=== PATIENT | male | born 1980 | race Caucasian/White ===

== ENCOUNTER 2017-09-28 10:23 | Emergency (ER) | payer OTHER ==
[~2017-09-28] VITALS: Ht 172.7 cm; Wt 112.2 kg
[~2017-09-28 10:23] MED LIST: ACET325T9 PO
[2017-09-28 10:25] VITALS: Ht 172.7 cm; Wt 112.2 kg
[2017-09-28] MEDS ORDERED: KETOROLAC TROMETHAMINE 30 MG/ML VIAL IV STA (10:51)
--- NOTE | 2017-09-28 11:08 | DIAGNOSTIC IMAGING REPORT ---
R ANKLE MIN 3 VIEWS ROUTINE HISTORY: 37 years-old Male R ankle pain acute right ankle pain COMPARISON: None available TECHNIQUE: 3 views of the right ankle FINDINGS: No acute fracture or subluxation. No osteochondral defect. Mild dorsal spurring of the navicular. Pes planus deformity with moderate sized plantar enthesophyte. Dystrophic appearing ossification measuring 4 mm is noted within the distribution of the plantar fascia. IMPRESSION: 1. No acute fracture or dislocation. 2. Pes planus deformity. 3. Moderate sized plantar enthesophyte with small dystrophic ossification within the region of the plantar fascia suggesting sequela of chronic plantar fasciitis. The above report was generated using voice recognition software. It may contain grammatical, syntax or spelling errors. Electronically signed by: Suleiman Dickens M.D. 09/28/2017 11:06 AM Dictated Date/Time: 09/28/2017 11:04 AM
[2017-09-28 11:25] LABS: BASO % 0.5 %; BASO ABS # 0.03 K/uL (0-0.2); EOS % 3.3 %; EOS ABS # 0.19 K/uL (0-0.5); HEMATOCRIT 47.1 % (42-52); HEMOGLOBIN 16.3 g/dL (14.0-18.0); IG# 0.01 K/uL (0.00-0.02); LYMPH % 30.4 %; LYMPH ABS # 1.74 K/uL (1.2-3.4); MEAN CELL VOLUME 92.2 fL (80-100); MEAN CORPUSCULAR HEMOGLOBIN 31.9 pg (25-34); MEAN CORPUSCULAR HGB CONC 34.6 g/dl (32-36); MEAN PLATELET VOLUME 9.9 fL (7.4-10.4); MONO % 6.3 %; MONO ABS # 0.36 K/uL (0.11-0.59); NEUT % 59.3 %; NEUT ABS # 3.39 K/uL (1.4-6.5); PLATELET COUNT 205 K/uL (130-400); RED CELL DISTRIBUTION WIDTH CV 12.4 % (11.5-14.5); RED CELL DISTRIBUTION WIDTH SD 41.7 fL (36.4-46.3); WHITE BLOOD COUNT 5.72 K/uL (4.8-10.8)
[2017-09-28 11:44] LABS: CALCIUM 8.8 mg/dl (8.5-10.1); CREATININE 1.01 mg/dl (0.60-1.40)
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
--- NOTE | 2017-09-28 14:28 | DIAGNOSTIC IMAGING REPORT ---
R VENOUS DOPP LOWER EXT UNILAT HISTORY: 37 years-old Male lower leg pain and swelling acute right lower extremity pain and swelling COMPARISON: Right ankle radiographs of same day TECHNIQUE: Multiple real-time sonographic images of the right lower extremity deep venous structures were obtained assessing grayscale appearance, color and spectral flow. FINDINGS: There is normal compressibility, flow, phasicity and augmentation within the right lower extremity deep venous structures. IMPRESSION: No sonographic evidence of deep venous thrombosis. The above report was generated using voice recognition software. It may contain grammatical, syntax or spelling errors. Electronically signed by: Suleiman Dickens M.D. 09/28/2017 2:27 PM Dictated Date/Time: 09/28/2017 2:26 PM
[2017-09-28 15:16] VITALS: BP 148/87; PULSE 85; TEMP 36.9; O2SAT 97
[2017-09-28] MEDS ORDERED: KETO10TA PO (15:26)
== END 2017-09-28 15:17 | disposition home or self-care (01) ==
LOC: C.EDB 10:24
DX: M25.571 Pain in right ankle and joints of right foot (principal); M79.662 Pain in left lower leg; G80.9 Cerebral palsy, unspecified; B02.9 Zoster without complications; M72.2 Plantar fascial fibromatosis; F17.200 Nicotine dependence, unspecified, uncomplicated

== ENCOUNTER 2019-07-23 18:39 | Inpatient (IN) ==
[2019-07-23] MEDS ORDERED: SODIUM CHLORIDE 0.9% 1000ML 1,000 ML IV ONE ×2 (19:05→21:11)
[2019-07-23 20:03] LABS: Basophils # (auto) 0.02 K/uL (0-0.2); Basophils % (auto) 0.2 %; Eosinophils # (auto) 0.16 K/uL (0-0.5); Eosinophils % (auto) 1.5 %; Hematocrit (blood only) 47.9 % (42-52); Hemoglobin 16.7 g/dL (14.0-18.0); Immature Granulocytes # (auto) 0.03 K/uL (0.00-0.02); Immature Granulocytes % (auto) 0.3 %; Lymphocytes # (auto) 2.16 K/uL (1.2-3.4); Lymphocytes % (auto) 19.6 %; Mean Corpuscular Hemoglobin 32.9 pg (25-34); Mean Corpuscular Hgb Conc 34.9 g/dL (32-36); Mean Corpuscular Volume 94.5 fL (80-100); Mean Platelet Volume 10.7 fL (7.4-10.4); Monocytes # (auto) 0.88 K/uL (0.11-0.59); Neutrophils # (auto) 7.76 K/uL (1.4-6.5); Neutrophils % (auto) 70.4 %; Platelet Count 200 K/uL (130-400); RDW Coefficient of Variation 12.2 % (11.5-14.5); RDW Standard Deviation 41.9 fL (36.4-46.3); Red Blood Count 5.07 M/uL (4.7-6.1); White Blood Count 11.01 K/uL (4.8-10.8)
[2019-07-23 20:12] LABS: iSTAT Creatinine 0.8 mg/dl (0.6-1.3); iSTAT Ionized Calcium 1.11 mmol/l (1.12-1.32); iSTAT Potassium 4.2 mEq/L (3.3-5.0)
[2019-07-23 20:24] LABS: Albumin Level 3.2 gm/dl (3.4-5.0); BUN Creatinine Ratio 15.3 (10-20); Calcium 9.2 mg/dl (8.5-10.1); Creatinine Clr Calc Pharmacy 130.8 ml/min; Est GFR (Non-African American) 104.4; Potassium 4.1 mmol/L (3.5-5.1)
[2019-07-23 20:26] LABS: Albumin Globulin Ratio 0.7 (0.9-2); Bilirubin,Total 0.6 mg/dl (0.2-1); Globulin 4.6 gm/dl (2.5-4.0); Total Protein 7.8 gm/dl (6.4-8.2)
[2019-07-23] MEDS ORDERED: IOVERSOL 100ml IV PRN (20:49)
--- NOTE | 2019-07-23 21:00 | CT Scan Report ---
ABDOMEN AND PELVIS CT WITH IV CONTRAST CT DOSE: 1164.15 mGy.cm HISTORY: Left lower quadrant abdominal pain. TECHNIQUE: Multiaxial CT images of the abdomen and pelvis were performed following the use of intrave nous contrast. A dose lowering technique was utilized adhering to the principles of ALARA. COMPARISON STUDY: None. FINDINGS: The lung bases are clear. No fractures within the visualized osseous structures. Mild hepat ic steatosis. The liver, adrenal glands, pancreas, gallbladder, left kidney are unremarkable. There i s a 4 mm stone within the upper pole the right kidney. No ureteral stones. No hydronephrosis. No retr operitoneal lymphadenopathy. Normal caliber abdominal aorta. No evidence for bowel obstruction. Dorothy l appendix. The bladder is unremarkable. A few scattered colonic diverticula. There is focal thickeni ng within the mid sigmoid colon with adjacent pericolonic fat stranding consistent with an acute dive rticulitis. There are small foci of extraluminal gas adjacent to the mid sigmoid colon consistent wit h microperforation. There is a small adjacent extraluminal air-fluid level measuring 2.1 cm likely re presenting a developing abscess. IMPRESSION: 1. Above findings consistent with acute sigmoid diverticulitis. There is associated microperforation and a small developing pericolonic abscess measuring 2 cm. Recommend follow-up to resolution and to e xclude the less likely possibility of underlying colonic lesion. 2. Right-sided nephrolithiasis. No hydronephrosis. 3. Hepatic steatosis. Electronically signed by: Aristeo Corbin M.D. 07/23/2019 8:59 PM
[2019-07-23] MEDS ORDERED: PIPERACILL/TAZOBAC CONSULT ACTIVE PRN ×2 (21:11→23:32)
[2019-07-23] MEDS ORDERED: PIPERACILLIN/TAZOBACTAM 4.5 GM/120 ML BAG IV ONE (21:11)
[2019-07-23 21:14] LABS: Appearance Urine Clear (Clear); Bacteria Urine Automated Negative (Negative); Bilirubin Urine Negative (Negative); Blood Urine Trace (Negative); Color Urine Yellow; Epithelial Cell Urine Auto 0-5 /lpf (0-5); Glucose Urine UA Negative (Negative); Ketones Urine Negative (Negative); Leukocyte Esterase Urine Negative (Negative); Nitrite Urine Negative (Negative); Protein Urine Negative (Negative); RBC Urine Automated 0-4 /hpf (0-4); Specific Gravity Urine 1.042 (1.000-1.030); Urobilinogen Urine Negative (Negative); WBC Urine Automated 0 /hpf (0-5)
[2019-07-23] MEDS ORDERED: MoRPHine SULFATE 4 MG/ML 1 ML CARP\\VIAL IV STA (21:53)
[2019-07-23] MEDS ORDERED: ONDANSETRON INJ 2 MG/ML 2 ML VIAL IV STA (21:53)
[2019-07-23] MEDS ORDERED: ONDANSETRON INJ 2 MG/ML 2 ML VIAL IV PRN (23:32)
[2019-07-24] MEDS: FAMOTIDINE 20 MG in SYRINGE 3 ML IV SCH ×3 (00:51→20:00)
[2019-07-24] MEDS: NSS + 20MEQ KCL 20 MEQ/1,000 ML BAG IV SCH ×3 (00:51→19:59)
--- NOTE | 2019-07-24 00:59 | Emergency Department Note ---
Entered by Hannah Childs acting as a scribe for Vick Nieto MD History of Present Illness General Chief complaint: Abdominal Pain Stated complaint: ABDOMINAL PAIN Time Seen by Provider: 07/23/19 18:57 Source: patient Mode of arrival: ambulatory Limitations: no limitations History of Present Illness Onset (ago): day(s) 3 Location: abdomen Radiation: non-radiation Pain Consistency: + constant Maximum Pain Intensity: 7 Current Pain Intensity: 7 Relieved By: + none Exacerbated By: + movement Associated symptoms: + fever/chills and + other (-diarrhea, +hematochezia, - hematuria, -dysuria); no chest pain, no nausea/vomiting and no shortness of breath Treatments prior to arrival: none The patient is a 39 year old male who presents to the ED with complaints of abdominal pain that started 3 days OIL [employer]AG [employer]. He rates his discomfort as a 7/10 in severity and states the pain is located "all over" but is worse on the left. Movement worsens his discomfort. He denies any recent trauma or injury. He thinks his highest temperature has been 100.2. He denies any recent nausea, vomiting or diarrhea. He states there was blood in his stool last night and this morning. He denies any history of diverticulitis or colitis. He denies any recent chest pain or shortness of breath. He denies any hematuria or dysuria. He has not eaten since approximately 1200 today. Home Medications Home Medications Medication Instructions Recorded Confirmed Type [id number] 2 ea PO UD PRN 07/23/19 07/23/19 History [[place] Plus Cold (PE)] Allergies Allergy/AdvReac Type Severity Reaction Status Date / Time No Known Drug Allergies Allergy Unknown NONE Verified 09/28/17 10:52 Past Med/Surg History Medical History Cerebral palsy Social History Preferred Language: Swedish Communication Ability: Effective Fuel Quality Tech Required: No Beliefs That Will Affect Care: None Current Living Situation: Parent Current Living Situation Comment: with dad Other Information That Helps Us Care for You: No Feels Safe at Home: Yes Safety Concerns: Feels Safe At This Time Smoking Status: Current every day smoker Tobacco Type: e-cigarettes ; Do You Dip or Chew Tobacco: Yes (at work) ; Second Hand Exposure: Yes ; Tobacco Cessation Education Requested by Patient: No Hx Alcohol Use: Yes Alcohol type: beer Hx Substance Use: No Review of Systems See HPI for pertinent positives & negatives. Physical Exam Vital Signs Vital Signs - 24 hr 07/23/19 18:41 07/23/19 20:00 07/23/19 21:00 Temperature 37.4 C Temperature Source Oral Sepsis Recent Fever Within 48 Hours No Sepsis New/Unexplained Change in Mental Status No Sepsis Action Taken by Nursing No Action Required Pulse Rate 103 H 86 Pulse Rate [Right Finger] 85 Pulse Rate from SpO2 Sensor 86 Pulse Rhythm Regular Pulse Rhythm [Right Finger] Regular Pulse Strength Normal Pulse Strength [Right Finger] Normal Respiratory Rate 20 22 Respiratory Effort / Characteristics Non-Labored Spontaneous Non-Labored Respiratory Depth Normal Normal Respiratory Pattern Regular Regular Blood Pressure 159/100 H 142/90 H Blood Pressure [Right Arm] 142/90 H Blood Pressure Mean 119 107 Blood Pressure Mean [Right Arm] 107 Blood Pressure Position Sitting Blood Pressure Position [Right Arm] Lying Pulse Oximetry 98 96 98 Oxygen Delivery Method Room Air Room Air 07/23/19 21:11 07/23/19 22:31 Temperature Temperature Source Sepsis Recent Fever Within 48 Hours Sepsis New/Unexplained Change in Mental Status Sepsis Action Taken by Nursing Pulse Rate 91 H Pulse Rate [Right Finger] 89 Pulse Rate from SpO2 Sensor 91 H Pulse Rhythm Pulse Rhythm [Right Finger] Pulse Strength Pulse Strength [Right Finger] Respiratory Rate 26 H 18 Respiratory Effort / Characteristics Respiratory Depth Respiratory Pattern Blood Pressure Blood Pressure [Right Arm] 139/93 Blood Pressure Mean Blood Pressure Mean [Right Arm] 108 Blood Pressure Position Blood Pressure Position [Right Arm] Pulse Oximetry 98 100 Oxygen Delivery Method Room Air General: Non-ill appearing middle aged male, in no acute distress. HEENT: Normal cephalic atraumatic. Pupils are equal round and reactive to light. Extraocular movements are intact. Oropharynx is pink with moist mucous membranes. No swelling of the mouth lips or tongue. Neck: Supple with a midline trachea. No meningeal signs or stiffness, no JVD or bruits. No Stridor. Chest: Clear to auscultation bilaterally. No wheezes or rhonchi. No increased work of breathing. Heart: regular rate and rhythm. Abdomen: Soft, moderately tender in LLQ, nondistended without rebound guarding or rigidity. Extremities: No cyanosis clubbing or edema. No calf tenderness or asymmetry Spine/Back. Non tender to palpation. No CVA tenderness Skin: Good turgor without rashes. Neurologic exam: Cranial nerves two through 12 are intact. Motor and sensation are intact and symmetrical throughout. Course 1858: The patient was evaluated in room A9 and a complete history and physical were performed. 2154: Discussed the patient's case with Dr. Levy, [facility] Hospitalist. The patient will be evaluated for further management. Administered Medications Famotidine 20 mg/ Syringe 5 mls @ 2.5 mls/min IV Q12 BREEZY Stop: 08/22/19 23:31 Last Admin: 07/24/19 00:51 Dose: 2.5 mls/min Documented by: [id number] Potassium Chloride/Sodium Chloride (Normal Saline W/20 Meq Kcl) 20 meq in 1,000 mls @ 100 mls/hr IV .Q10H BREEZY Stop: 08/22/19 23:31 Last Admin: 07/24/19 00:51 Dose: 100 mls/hr Documented by: [id number] Ioversol (Optiray 320 100ml) 90 ml IV ONCE PRN PRN Reason: Interaction Checking Stop: 07/27/19 20:48 Last Admin: 07/23/19 20:49 Dose: 90 ml Documented by: [id number] Discontinued Medications Sodium Chloride (Nss 1000ml) 1,000 mls @ 999 mls/hr IV .Q1H1M ONE Stop: 07/23/19 20:05 Last Infusion: 07/23/19 21:26 Dose: 0 mls/hr Documented by: [id number] Admin: 07/23/19 19:45 Dose: 999 mls/hr Documented by: [id number] Piperacillin Sod/Tazobactam Sod (Zosyn) 4.5 gm in 120 mls @ 240 mls/hr IV NOW ONE Stop: 07/23/19 21:40 Last Infusion: 07/23/19 22:34 Dose: 0 mls/hr Documented by: [id number] Admin: 07/23/19 21:50 Dose: 200 mls/hr Documented by: [id number] Sodium Chloride (Nss 1000ml) 1,000 mls @ 999 mls/hr IV .Q1H1M ONE Stop: 07/23/19 22:11 Last Infusion: 07/23/19 22:53 Dose: 0 mls/hr Documented by: [id number] Admin: 07/23/19 21:49 Dose: 999 mls/hr Documented by: [id number] Morphine Sulfate (Morphine Sulfate) 4 mg IV NOW STA Stop: 07/23/19 21:54 Last Admin: 07/23/19 22:32 Dose: 4 mg Documented by: [id number] Ondansetron HCl (Zofran) 4 mg IV NOW STA Stop: 07/23/19 21:54 Last Admin: 07/23/19 22:32 Dose: 4 mg Documented by: [id number] Medical Decision Making Differential Diagnosis Differential diagnoses considered include diverticulitis, colitis, abscess, kidney stone, UTI, electrolyte or metabolic abnormality. Medical Records Attestation: I reviewed the patient's medical records. Home Medications Current Medication List: was personally reviewed by me Laboratory Data Attestation: I reviewed the patient's lab results. Result diagrams: 07/23/19 19:49 07/23/19 19:49 Lab Results 07/23/19 07/23/19 07/23/19 Range/Units 19:49 19:49 19:56 WBC 11.01 H (4.8-10.8) K/uL RBC 5.07 (4.7-6.1) M/uL Hgb 16.7 (14.0-18.0) g/dL POC Hgb 17.0 (14.0-18.0) g/dl Hct 47.9 (42-52) % POC Hct 50 (42-52) % MCV 94.5 (80-100) fL MCH 32.9 (25-34) pg MCHC 34.9 (32-36) g/dL RDW Std Deviation 41.9 (36.4-46.3) fL RDW Coeff of Nancy 12.2 (11.5-14.5) % Plt Count 200 (130-400) K/uL MPV 10.7 H (7.4-10.4) fL Immature Gran % (Auto) 0.3 % Neut % (Auto) 70.4 % Lymph % (Auto) 19.6 % [place] % (Auto) 8.0 % Eos % (Auto) 1.5 % Baso % (Auto) 0.2 % Immature Gran # (Auto) 0.03 H (0.00-0.02) K/uL Neut # (Auto) 7.76 H (1.4-6.5) K/uL Lymph # (Auto) 2.16 (1.2-3.4) K/uL [place] # (Auto) 0.88 H (0.11-0.59) K/uL Eos # (Auto) 0.16 (0-0.5) K/uL Baso # (Auto) 0.02 (0-0.2) K/uL POC Sodium 137 (135-144) mEq/L Sodium 136 (136-145) mmol/L POC Potassium 4.2 (3.3-5.0) mEq/L Potassium 4.1 (3.5-5.1) mmol/L POC Chloride 102 (101-112) mEq/L Chloride 104 (98-107) mmol/L Carbon Dioxide 27 (21-32) mmol/L POC Total CO2 26 (24-31) mEq/l Anion Gap 6.0 (3-11) POC Anion Gap 15.0 L (16-25) mmol/L POC BUN 14 (7-18) mg/dl BUN 14 (7-18) mg/dl Creatinine 0.92 (0.6-1.4) mg/dl POC Creatinine 0.8 (0.6-1.3) mg/dl Est Cr Clr Drug Dosing 130.8 ml/min Est GFR ( Amer) 121.0 Est GFR (Non-Af Amer) 104.4 BUN/Creatinine Ratio 15.3 (10-20) Glucose 104 H (70-99) mg/dl POC Glucose (other) 104 H (70-99) mg/dl Calcium 9.2 (8.5-10.1) mg/dl POC Ioniz Calcium Burt 1.11 L (1.12-1.32) mmol/l Total Bilirubin 0.6 (0.2-1) mg/dl AST 17 (15-37) U/L ALT 34 (12-78) U/L Alkaline Phosphatase 106 (45-117) U/L Total Protein 7.8 (6.4-8.2) gm/dl Albumin 3.2 L (3.4-5.0) gm/dl Globulin 4.6 H (2.5-4.0) gm/dl Albumin/Globulin Ratio 0.7 L (0.9-2) Lipase 100 (73-393) U/L Urine Color Urine Appearance (Clear) Urine pH (4.5-7.5) Ur Specific [place] (1.000-1.030) Urine Protein (Negative) Urine Glucose (UA) (Negative) Urine Ketones (Negative) Urine Blood (Negative) Urine Nitrite (Negative) Urine Bilirubin (Negative) Urine Urobilinogen (Negative) Ur Leukocyte Esterase (Negative) Urine WBC (Auto) (0-5) /hpf Urine RBC (Auto) (0-4) /hpf U Hyaline Cast (Auto) (0-5) /lpf U Epithel Cells (Auto) (0-5) /lpf Urine Bacteria (Auto) (Negative) 07/23/19 Range/Units 21:02 WBC (4.8-10.8) K/uL RBC (4.7-6.1) M/uL Hgb (14.0-18.0) g/dL POC Hgb (14.0-18.0) g/dl Hct (42-52) % POC Hct (42-52) % MCV (80-100) fL MCH (25-34) pg MCHC (32-36) g/dL RDW Std Deviation (36.4-46.3) fL RDW Coeff of Nancy (11.5-14.5) % Plt Count (130-400) K/uL MPV (7.4-10.4) fL Immature Gran % (Auto) % Neut % (Auto) % Lymph % (Auto) % [place] % (Auto) % Eos % (Auto) % Baso % (Auto) % Immature Gran # (Auto) (0.00-0.02) K/uL Neut # (Auto) (1.4-6.5) K/uL Lymph # (Auto) (1.2-3.4) K/uL [place] # (Auto) (0.11-0.59) K/uL Eos # (Auto) (0-0.5) K/uL Baso # (Auto) (0-0.2) K/uL POC Sodium (135-144) mEq/L Sodium (136-145) mmol/L POC Potassium (3.3-5.0) mEq/L Potassium (3.5-5.1) mmol/L POC Chloride (101-112) mEq/L Chloride (98-107) mmol/L Carbon Dioxide (21-32) mmol/L POC Total CO2 (24-31) mEq/l Anion Gap (3-11) POC Anion Gap (16-25) mmol/L POC BUN (7-18) mg/dl BUN (7-18) mg/dl Creatinine (0.6-1.4) mg/dl POC Creatinine (0.6-1.3) mg/dl Est Cr Clr Drug Dosing ml/min Est GFR ( Amer) Est GFR (Non-Af Amer) BUN/Creatinine Ratio (10-20) Glucose (70-99) mg/dl POC Glucose (other) (70-99) mg/dl Calcium (8.5-10.1) mg/dl POC Ioniz Calcium Burt (1.12-1.32) mmol/l Total Bilirubin (0.2-1) mg/dl AST (15-37) U/L ALT (12-78) U/L Alkaline Phosphatase (45-117) U/L Total Protein (6.4-8.2) gm/dl Albumin (3.4-5.0) gm/dl Globulin (2.5-4.0) gm/dl Albumin/Globulin Ratio (0.9-2) Lipase (73-393) U/L Urine Color Yellow Urine Appearance Clear (Clear) Urine pH 6.0 (4.5-7.5) Ur Specific [place] 1.042 H (1.000-1.030) Urine Protein Negative (Negative) Urine Glucose (UA) Negative (Negative) Urine Ketones Negative (Negative) Urine Blood Trace H (Negative) Urine Nitrite Negative (Negative) Urine Bilirubin Negative (Negative) Urine Urobilinogen Negative (Negative) Ur Leukocyte Esterase Negative (Negative) Urine WBC (Auto) 0 (0-5) /hpf Urine RBC (Auto) 0-4 (0-4) /hpf U Hyaline Cast (Auto) 1-5 (0-5) /lpf U Epithel Cells (Auto) 0-5 (0-5) /lpf Urine Bacteria (Auto) Negative (Negative) Imaging Data Radiologist's Impression: Radiology results as stated below per my review and the radiologist's interpretation: ABDOMEN AND PELVIS CT WITH IV CONTRAST CT DOSE: 1164.15 mGy.cm HISTORY: Left lower quadrant abdominal pain. TECHNIQUE: Multiaxial CT images of the abdomen and pelvis were performed following the use of intravenous contrast. A dose lowering technique was utilized adhering to the principles of ALARA. COMPARISON STUDY: None. FINDINGS: The lung bases are clear. No fractures within the visualized osseous structures. Mild hepatic steatosis. The liver, adrenal glands, pancreas, gallbladder, left kidney are unremarkable. There is a 4 mm stone within the upper pole the right kidney. No ureteral stones. No hydronephrosis. No retroperitoneal lymphadenopathy. Normal caliber abdominal aorta. No evidence for bowel obstruction. Normal appendix. The bladder is unremarkable. A few scattered colonic diverticula. There is focal thickening within the mid sigmoid colon with adjacent pericolonic fat stranding consistent with an acute diverticulitis. There are small foci of extraluminal gas adjacent to the mid sigmoid colon consistent with microperforation. There is a small adjacent extraluminal air- fluid level measuring 2.1 cm likely representing a developing abscess. IMPRESSION: 1. Above findings consistent with acute sigmoid diverticulitis. There is associated microperforation and a small developing pericolonic abscess measuring 2 cm. Recommend follow-up to resolution and to exclude the less likely possibility of underlying colonic lesion. 2. Right-sided nephrolithiasis. No hydronephrosis. 3. Hepatic steatosis. Electronically signed by: Aristeo Corbin M.D. 07/23/2019 8:59 PM Blood Pressure Blood Pressure Findings: Elevated blood pressure Blood Pressure Disposition: further management by hospitalist HARRY Guerra This patient comes in as described above. he has left lower quadrant abdominal pain going on for several days. he was sent over from the urgent care center. He is moderately tender left side of the abdomen. No fever or chills. IV access established blood work was obtained. he does have an elevated white count. A CAT scan does confirm acute diverticulitis. There may be microperforations and a small 2 cm abscess. He was given IV Zosyn. He was also given IV hydration with IV fluid boluses here he was given morphine 4 mg and Zofran 4 mg for pain and nausea management. I do think he needs to be admitted for IV antibiotics given the concern for perforation and abscess. I did consult Dr. Mckenna to see him in the ER for these measures. Impression & Plan Diverticulitis, Diverticular disease of intestine with perforation and abscess, LLQ abdominal pain, Cerebral palsy Discharge Plan Visit Data *Final* Discharge Date/Time: 07/23/19 23:15 Chief Complaint: Abdominal Pain Stated Complaint: ABDOMINAL PAIN ED Provider: Vick Nieto Discharge Problem: Diverticulitis, Diverticular disease of intestine with perforation and abscess, LLQ abdominal pain, Cerebral palsy Patient Disposition: Admitted As Inpatient Discharge Instructions Interventions: ED Discharge Assessment Last Done: 07/23/19 23:15 The scribe's documentation has been prepared under my direction and personally reviewed by me in its entirety. I confirm that the note above accurately reflects all work, treatment, procedures, and medical decision making performed by me.
[2019-07-24] MEDS: PIPERACILLIN/TAZOBACTAM 4.5 GM in DEXTROSE 5% 100 ML IV SCH ×3 (02:06→18:24)
[2019-07-24] MEDS: ACETAMINOPHEN 1,000 MG/100 ML VIAL IV PRN ×2 (05:15→12:36)
--- NOTE | 2019-07-24 05:27 | History & Physical Report ---
Date of Service July 24, 2019 The patient was seen and examined on 07/23/2019 Assessment & Plan (1) Diverticular disease of intestine with perforation and abscess: NPO Admit to medical surgical floor. Zosyn 4.5 g IV every 8 hours. Zofran 4 mg IV every 6 hours PRN. Famotidine 20 mg IV every 12 hours. Acetaminophen 1000 mg IV every 8 hours PRN mild pain or temperature. NSS + KCl 20 mEq at 100 mils per hour. Can be seen by gastroenterology, and/or general surgery as hospitalization prog resses. Present on Admission?: Yes (2) Cerebral palsy: Noted. No acute issues at this time. Present on Admission?: Yes History of Present Illness Chief Complaint: The patient presents to the emergency department with complaint of abdominal pain that began 4 days ago, that did briefly improve yesterday, and then worsened again today. Primary Care Provider: NO PCP The patient is a 39-year-old male who presents to the emergency department with symptoms as noted above. Work-up in the emergency department included included a CT scan of the abdomen and pelvis which showed findings consistent with acute sigmoid diverticulitis, an associated microperforation, and a small developing pericolonic abscess measuring 2 cm. Recommendation to follow-up to resolution and to exclude the less likely possibility of an underlying colonic lesion. The patient will be admitted to hospital for further evaluation and treatment. 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 Beliefs That Will Affect Care: None Current Living Situation: Parent Current Living Situation Comment: with dad Other Information That Helps Us Care for You: No Feels Safe at Home: Yes Safety Concerns: Feels Safe At This Time Smoking Status: Current every day smoker Tobacco Type: e-cigarettes ; Do You Dip or Chew Tobacco: Yes (at work) ; Second Hand Exposure: Yes ; Tobacco Cessation Education Requested by Patient: No Hx Alcohol Use: Yes Alcohol type: beer Hx Substance Use: No Review of Systems Review of Systems: The patient denies chest pain, palpitations, shortness of breath, dyspnea on exertion, cough, lower extremity swelling, sore throat, fevers, chills, sweats, nausea, vomiting, blood in urine or stool, dysuria, urinary frequency or urgency, lightheadedness, dizziness, headache, memory loss, loss of consciousness, rash, abnormal bruising, imbalance, focal or generalized weakness, numbness or tingling in arms or legs, generalized arthralgias or myalgias, back or neck pain, or night sweats. The review of systems is otherwise negative other than for that already noted above, and at least 10 systems have been reviewed. Physical Exam Physical Exam: The patient is awake, alert and oriented 3, well developed and well nourished, normocephalic and atraumatic, lying in bed and in no acute distress. HEENT--PERRL, EOMI, mucous membranes and oropharynx dry. Neck--No JVD. No bruits. Thyroid normal, trachea midline, no adenopathy. Heart--normal S1 and S2. No murmurs, rubs or gallops. Lungs--clear bilaterally, no respiratory distress, no accessory muscle use. Abdomen--normal bowel sounds and soft. Tender left lower quadrant. Nondistended. Extremities--no cyanosis or clubbing. No edema. Dermatologic--normal skin turgor, normal color, no abnormal lymph nodes, no rash. Neurologic--cranial nerves II through XII grossly intact. Rheumatologic--normal range of motion. Psychiatric--normal affect. Results & Data Vital Signs (Past 12 Hours) Vital Signs Temp Pulse Pulse Resp BP BP Pulse Ox 07/23/19 23:35 98.2 F 84 18 132/85 96 07/23/19 22:31 89 18 139/93 100 07/23/19 21:11 91 H 26 H 98 07/23/19 21:00 86 85 22 142/90 H 142/90 H 98 07/23/19 20:00 96 07/23/19 18:41 99.3 F 103 H 20 159/100 H 98 Laboratory Results Laboratory Results WBC 11.01 K/uL (4.8-10.8) H 07/23/19 19:49 RBC 5.07 M/uL (4.7-6.1) 07/23/19 19:49 Hgb 16.7 g/dL (14.0-18.0) 07/23/19 19:49 POC Hgb 17.0 g/dl (14.0-18.0) 07/23/19 19:56 Hct 47.9 % (42-52) 07/23/19 19:49 POC Hct 50 % (42-52) 07/23/19 19:56 MCV 94.5 fL (80-100) 07/23/19 19:49 MCH 32.9 pg (25-34) 07/23/19 19:49 MCHC 34.9 g/dL (32-36) 07/23/19 19:49 RDW Std Deviation 41.9 fL (36.4-46.3) 07/23/19 19:49 RDW Coeff of Nancy 12.2 % (11.5-14.5) 07/23/19 19:49 Plt Count 200 K/uL (130-400) 07/23/19 19:49 MPV 10.7 fL (7.4-10.4) H 07/23/19 19:49 Immature Gran % (Auto) 0.3 % 07/23/19 19:49 Neut % (Auto) 70.4 % 07/23/19 19:49 Lymph % (Auto) 19.6 % 07/23/19 19:49 Baker % (Auto) 8.0 % 07/23/19 19:49 Eos % (Auto) 1.5 % 07/23/19 19:49 Baso % (Auto) 0.2 % 07/23/19 19:49 Immature Gran # (Auto) 0.03 K/uL (0.00-0.02) H 07/23/19 19:49 Neut # (Auto) 7.76 K/uL (1.4-6.5) H 07/23/19 19:49 Lymph # (Auto) 2.16 K/uL (1.2-3.4) 07/23/19 19:49 Baker # (Auto) 0.88 K/uL (0.11-0.59) H 07/23/19 19:49 Eos # (Auto) 0.16 K/uL (0-0.5) 07/23/19 19:49 Baso # (Auto) 0.02 K/uL (0-0.2) 07/23/19 19:49 POC Sodium 137 mEq/L (135-144) 07/23/19 19:56 Sodium 136 mmol/L (136-145) 07/23/19 19:49 POC Potassium 4.2 mEq/L (3.3-5.0) 07/23/19 19:56 Potassium 4.1 mmol/L (3.5-5.1) 07/23/19 19:49 POC Chloride 102 mEq/L (101-112) 07/23/19 19:56 Chloride 104 mmol/L (98-107) 07/23/19 19:49 Carbon Dioxide 27 mmol/L (21-32) 07/23/19 19:49 POC Total CO2 26 mEq/l (24-31) 07/23/19 19:56 Anion Gap 6.0 (3-11) 07/23/19 19:49 POC Anion Gap 15.0 mmol/L (16-25) L 07/23/19 19:56 POC BUN 14 mg/dl (7-18) 07/23/19 19:56 BUN 14 mg/dl (7-18) 07/23/19 19:49 Creatinine 0.92 mg/dl (0.6-1.4) 07/23/19 19:49 POC Creatinine 0.8 mg/dl (0.6-1.3) 07/23/19 19:56 Est Cr Clr Drug Dosing 130.8 ml/min 07/23/19 19:49 Est GFR ( Amer) 121.0 07/23/19 19:49 Est GFR (Non-Af Amer) 104.4 07/23/19 19:49 BUN/Creatinine Ratio 15.3 (10-20) 07/23/19 19:49 Glucose 104 mg/dl (70-99) H 07/23/19 19:49 POC Glucose (other) 104 mg/dl (70-99) H 07/23/19 19:56 Calcium 9.2 mg/dl (8.5-10.1) 07/23/19 19:49 POC Ioniz Calcium Burt 1.11 mmol/l (1.12-1.32) L 07/23/19 19:56 Total Bilirubin 0.6 mg/dl (0.2-1) 07/23/19 19:49 AST 17 U/L (15-37) 07/23/19 19:49 ALT 34 U/L (12-78) 07/23/19 19:49 Alkaline Phosphatase 106 U/L (45-117) 07/23/19 19:49 Total Protein 7.8 gm/dl (6.4-8.2) 07/23/19 19:49 Albumin 3.2 gm/dl (3.4-5.0) L 07/23/19 19:49 Globulin 4.6 gm/dl (2.5-4.0) H 07/23/19 19:49 Albumin/Globulin Ratio 0.7 (0.9-2) L 07/23/19 19:49 Lipase 100 U/L (73-393) 07/23/19 19:49 Urine Color Yellow 07/23/19 21:02 Urine Appearance Clear (Clear) 07/23/19 21:02 Urine pH 6.0 (4.5-7.5) 07/23/19 21:02 Ur Specific [place] 1.042 (1.000-1.030) H 07/23/19 21:02 Urine Protein Negative (Negative) 07/23/19 21:02 Urine Glucose (UA) Negative (Negative) 07/23/19 21:02 Urine Ketones Negative (Negative) 07/23/19 21:02 Urine Blood Trace (Negative) H 07/23/19 21:02 Urine Nitrite Negative (Negative) 07/23/19 21:02 Urine Bilirubin Negative (Negative) 07/23/19 21:02 Urine Urobilinogen Negative (Negative) 07/23/19 21:02 Ur Leukocyte Esterase Negative (Negative) 07/23/19 21:02 Urine WBC (Auto) 0 /hpf (0-5) 07/23/19 21:02 Urine RBC (Auto) 0-4 /hpf (0-4) 07/23/19 21:02 U Hyaline Cast (Auto) 1-5 /lpf (0-5) 07/23/19 21:02 U Epithel Cells (Auto) 0-5 /lpf (0-5) 07/23/19 21:02 Urine Bacteria (Auto) Negative (Negative) 07/23/19 21:02 Diagnostic Findings [place], [place] [phone] CT Scan Report Patient: JAMES LORA Date: 07/23/19 MR#: [id number] [address] Acct ID:[id number]: Date: [address] Zip: [place] [address] Age: 39Location: ED Sex: M Room/Bed: Att Phy:Diagnosis: ABDOMINAL PAIN [place] Phy: PCP,NOService Date: 07/23/19 Fam Phy:Interpreting Phy: Aristeo Corbin MD Admit Phy: Ordering Phy: Vick Nieto M.D. cc: ~ ABDOMEN AND PELVIS CT WITH IV CONTRAST CT DOSE: 1164.15 mGy.cm HISTORY: Left lower quadrant abdominal pain. TECHNIQUE: Multiaxial CT images of the abdomen and pelvis were performed following the use of intravenous contrast. A dose lowering technique was utilized adhering to the principles of ALARA. COMPARISON STUDY: None. FINDINGS: The lung bases are clear. No fractures within the visualized osseous structures. Mild hepatic steatosis. The liver, adrenal glands, pancreas, gallbladder, left kidney are unremarkable. There is a 4 mm stone within the upper pole the right kidney. No ureteral stones. No hydronephrosis. No retroperitoneal lymphadenopathy. Normal caliber abdominal aorta. No evidence for bowel obstruction. Normal appendix. The bladder is unremarkable. A few scattered colonic diverticula. There is focal thickening within the mid sigmoid colon with adjacent pericolonic fat stranding consistent with an acute diverticulitis. There are small foci of extraluminal gas adjacent to the mid sigmoid colon consistent with microperforation. There is a small adjacent extraluminal air- fluid level measuring 2.1 cm likely representing a developing abscess. IMPRESSION: 1. Above findings consistent with acute sigmoid diverticulitis. There is associated microperforation and a small developing pericolonic abscess measuring 2 cm. Recommend follow-up to resolution and to exclude the less likely possibility of underlying colonic lesion. 2. Right-sided nephrolithiasis. No hydronephrosis. 3. Hepatic steatosis. Electronically signed by: Aristeo Corbin M.D. 07/23/2019 8:59 PM Dictated: 07/23/192052 Transcribed: 07/23/192052 Code Status & VTE Plan Code Status Full code VTE Prophylaxis Plan VTE Prophylaxis will be ordered: Yes PG Care Time/CCT Total # of Minutes Spent Total Time Spent with Patient: Total time spent is greater than 50% in coordination of care (as documented) at patient's floor/unit and/or counseling patient: (1) Cerebral palsy Cerebral palsy type: unspecified type Qualified Code(s): G80.9 - Cerebral palsy, unspecified
[2019-07-24] MEDS ORDERED: INFLUENZA ADMINISTRATION CHARGE ONE (06:00)
[2019-07-24] MEDS ORDERED: INFLUENZA VIRUS QUAD VACCINE 0.5 ML SYR IM ONE (06:00)
--- NOTE | 2019-07-24 12:27 | Surgery Consultation ---
Date of Consultation July 24, 2019 Assessment & Plan (1) Diverticular disease of intestine with perforation and abscess: No peritoneal findings. Continue IV abx, can have clears sparingly today. Will follow with serial exams and labs. Hopefully will resolve with conservative management. Seen with Dr. Garza. History of Present Illness Attending Physician: Handy Hernadez DO History of Present Illness 39 y/o male with LLQ cramping that started Monday night into Monday, improved a little then was worse today. Improved after given Tylenol in the ED. Had no rmal BM this AM, no diarrhea or constipation recently. No history of diverticulitis or pain. [place] a little warm at home, no chills. 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 Beliefs That Will Affect Care: None Current Living Situation: Parent Current Living Situation Comment: with dad Other Information That Helps Us Care for You: No Feels Safe at Home: Yes Safety Concerns: Feels Safe At This Time Smoking Status: Current every day smoker Tobacco Type: e-cigarettes ; Do You Dip or Chew Tobacco: Yes (at work) ; Second Hand Exposure: Yes ; Tobacco Cessation Education Requested by Patient: No Hx Alcohol Use: Yes Alcohol type: beer Hx Substance Use: No Review of Systems Constitutional: no fever, no chills, no sweats and no malaise Gastrointestinal: + abdominal pain and + change in stools (smaller today); no nausea, no vomiting, no constipation and no diarrhea/loose stools Physical Exam Constitutional: WD/WN, vitals as above no acute distress Respiratory: normal respiratory effort Cardiovascular: Rate/Rhythm: regular rate Gastrointestinal (Abdomen): Inspection/Auscultation: abdomen not distended Percussion/Palpation: + abdomen tender (mild LLQ) and abdomen soft; no guarding Results & Data Vital Signs (Past 12 Hours) Vital Signs Temp Pulse Resp BP Pulse Ox 07/24/19 07:08 36.9 C 58 L 16 121/80 97 Diagnostic Findings ABDOMEN AND PELVIS CT WITH IV CONTRAST CT DOSE: 1164.15 mGy.cm HISTORY: Left lower quadrant abdominal pain. TECHNIQUE: Multiaxial CT images of the abdomen and pelvis were performed following the use of intravenous contrast. A dose lowering technique was utilized adhering to the principles of ALARA. COMPARISON STUDY: None. FINDINGS: The lung bases are clear. No fractures within the visualized osseous structures. Mild hepatic steatosis. The liver, adrenal glands, pancreas, gallbladder, left kidney are unremarkable. There is a 4 mm stone within the upper pole the right kidney. No ureteral stones. No hydronephrosis. No retroperitoneal lymphadenopathy. Normal caliber abdominal aorta. No evidence for bowel obstruction. Normal appendix. The bladder is unremarkable. A few scattered colonic diverticula. There is focal thickening within the mid sigmoid colon with adjacent pericolonic fat stranding consistent with an acute diverticulitis. There are small foci of extraluminal gas adjacent to the mid sigmoid colon consistent with microperforation. There is a small adjacent extraluminal air-fluid level measuring 2.1 cm likely representing a developing abscess. IMPRESSION: 1. Above findings consistent with acute sigmoid diverticulitis. There is associated microperforation and a small developing pericolonic abscess measuring 2 cm. Recommend follow-up to resolution and to exclude the less likely possibility of underlying colonic lesion. 2. Right-sided nephrolithiasis. No hydronephrosis. 3. Hepatic steatosis. Electronically signed by: Aristeo Corbin M.D. 07/23/2019 8:59 PM PG Care Time/CCT Total # of Minutes Spent Total Time Spent with Patient: Total time spent is greater than 50% in coordination of care (as documented) at patient's floor/unit and/or counseling patient:
--- NOTE | 2019-07-24 16:30 | Hospitalist Progress Note ---
Date of Service July 24, 2019 Assessment & Plan (1) Diverticular disease of intestine with perforation and abscess: - CT with acute sigmoid diverticulitis - associated microperforation and a small developing pericolonic abscess measuring 2 cm - Recommends F/U to resolution to exclude a colonic lesion - Will allow a clear liquid diet/ice chips - Pepcid 20 mg IV BID; NSS + 20 mEq at 100 mL/hr; Tylenol PRN - Zosyn Q8H - Gen Surg following - no surgical intervention necessary at this time Present on Admission?: Yes (2) Alcohol use: - Patient gave permission to discuss care with sister; incidental mention of daily alcohol consumption but she did not know amount of consumption or if he has ever withdrawn from alcohol - Will F/U with patient to assess quantity consumed - no signs of withdrawal at this time and will continue to monitor Present on Admission?: Yes (3) Cerebral palsy: - STABLE; no acute issues Present on Admission?: Yes (4) DVT prophylaxis: - SCDs Disposition: Await Abx response/dietary advancement/pain control; D/C to home when medically stable Subjective Reports he feels a little better this afternoon compared to when he arrived. Pain is being controlled with IV Tylenol at this time and denies need for anything stronger. Had a BM this morning. Tolerating ice chips. Reports he does feel hungry. Verbalizes no other complaints at this time Review of Systems Constitutional: no fever and no chills Respiratory: no cough and no dyspnea Cardiovascular: no chest pain, no palpitations, no lightheadedness and no edema Gastrointestinal: + abdominal pain (improving with Tylenol; RLQ); no nausea, no vomiting, no constipation and no diarrhea/loose stools BRBPR prior to admission - no noticeable blood on BM on 07/24 Genitourinary: no dysuria Integumentary: no rash Neurologic: no tingling and no numbness Physical Exam Constitutional: WD/WN, vitals as above no acute distress and not ill appearing Eyes: + anicteric sclerae Neck: trachea midline Respiratory: normal respiratory effort, lungs clear to auscultation Cardiovascular: RRR, no murmur, no edema Gastrointestinal (Abdomen): Inspection/Auscultation: normal bowel sounds Percussion/Palpation: abdomen soft; abdomen nontender Musculoskeletal: Head/Neck/Chest: normocephalic and head atraumatic Skin: no rashes, warm and dry Neurologic: moves all extremities Psychiatric: A+Ox3, euthymic affect Results & Data Vital Signs (Past 12 Hours) Vital Signs Temp Pulse Resp BP Pulse Ox 07/24/19 15:33 36.8 C 53 L 16 139/92 98 07/24/19 07:08 36.9 C 58 L 16 121/80 97 PG Care Time/CCT Total # of Minutes Spent Total Time Spent with Patient: Total time spent is greater than 50% in coordination of care (as documented) at patient's floor/unit and/or counseling patient: (1) Cerebral palsy Cerebral palsy type: unspecified type Qualified Code(s): G80.9 - Cerebral palsy, unspecified
[2019-07-24] MEDS: ACETAMINOPHEN 500 MG TAB PO PRN (19:23)
[2019-07-25] MEDS: PIPERACILLIN/TAZOBACTAM 4.5 GM in DEXTROSE 5% 100 ML IV SCH ×3 (01:56→17:38)
[2019-07-25] MEDS: ACETAMINOPHEN 500 MG TAB PO PRN ×2 (05:33→20:36)
[2019-07-25] MEDS: NSS + 20MEQ KCL 20 MEQ/1,000 ML BAG IV SCH ×2 (05:33→15:23)
[2019-07-25 08:38] LABS: Hematocrit (blood only) 40.5 % (42-52); Hemoglobin 13.7 g/dL (14.0-18.0); Mean Corpuscular Hemoglobin 32.2 pg (25-34); Mean Corpuscular Hgb Conc 33.8 g/dL (32-36); Mean Corpuscular Volume 95.3 fL (80-100); Mean Platelet Volume 9.8 fL (7.4-10.4); Platelet Count 189 K/uL (130-400); RDW Standard Deviation 41.5 fL (36.4-46.3); Red Blood Count 4.25 M/uL (4.7-6.1); White Blood Count 8.07 K/uL (4.8-10.8)
[2019-07-25 08:56] LABS: Calcium 8.3 mg/dl (8.5-10.1); Creatinine Clr Calc Pharmacy 135.2 ml/min; Est GFR (African American) 124.8; Est GFR (Non-African American) 107.7; Potassium 4.2 mmol/L (3.5-5.1)
[2019-07-25] MEDS: FAMOTIDINE 20 MG in SYRINGE 3 ML IV SCH (09:34)
--- NOTE | 2019-07-25 10:14 | Surgery Progress Note ---
Date of Service July 25, 2019 Assessment & Plan (1) Diverticular disease of intestine with perforation and abscess: can have full liquids and continue until BMs are regular seen with Dr. Garza Subjective liquid BM, denies pain & fever Physical Exam Gastrointestinal (Abdomen): Percussion/Palpation: abdomen soft; abdomen nontender Results & Data Vital Signs (Past 12 Hours) Vital Signs Temp Pulse Resp BP Pulse Ox 07/25/19 07:29 36.5 C 54 L 14 134/87 97 07/24/19 23:25 36.7 C 58 L 16 134/91 98 PG Care Time/CCT Total # of Minutes Spent Total Time Spent with Patient: Total time spent is greater than 50% in coordination of care (as documented) at patient's floor/unit and/or counseling patient:
--- NOTE | 2019-07-25 11:51 | Hospitalist Progress Note ---
Date of Service July 25, 2019 Assessment & Plan (1) Diverticular disease of intestine with perforation and abscess: - CT with acute sigmoid diverticulitis - associated microperforation and a small developing pericolonic abscess measuring 2 cm - Recommends F/U to resolution to exclude a colonic lesion - Will allow full liquid diet and further advancement pending tolerance - NSS + 20 mEq at 100 mL/hr and likely can D/C fluids tomorrow; Tylenol PRN - Zosyn Q8H - Gen Surg following - no surgical intervention necessary at this time (2) Alcohol use: - Patient gave permission to discuss care with sister; incidental mention of daily alcohol consumption but she did not know amount of consumption or if he has ever withdrawn from alcohol - No signs of withdrawal at this time and will continue to monitor (3) Cerebral palsy: - STABLE; no acute issues (4) DVT prophylaxis: - SCDs Disposition: Await Abx response/dietary advancement/pain control; D/C to home when medically stable and possible in 2-3 days Subjective Patient reports feeling well today. Minimal pain but still some intermittent discomfort in RLQ. Reports some slightly increased pain after eating food but overall tolerating well. Moved his bowels this AM without any noticeable blood. Verbalizes no other complaints. Review of Systems Constitutional: no fever and no chills Respiratory: no cough and no dyspnea Cardiovascular: no chest pain, no lightheadedness and no edema Gastrointestinal: + abdominal pain (improving with Tylenol; RLQ); no nausea, no vomiting, no constipation and no diarrhea/loose stools BRBPR prior to admission - no noticeable blood on BMs during admission Genitourinary: no dysuria Integumentary: no rash Neurologic: no gait abnormality Psychiatric: no irritability, no anxiety and no confusion Physical Exam Constitutional: WD/WN, vitals as above no acute distress and not ill appearing Eyes: + anicteric sclerae Neck: trachea midline Respiratory: normal respiratory effort, lungs clear to auscultation Cardiovascular: RRR, no murmur, no edema Gastrointestinal (Abdomen): Inspection/Auscultation: + abdomen distended (mild but reports largely his baseline) and normal bowel sounds Percussion/Palpation: abdomen soft; abdomen nontender Musculoskeletal: Head/Neck/Chest: normocephalic and head atraumatic Skin: no rashes, warm and dry Neurologic: moves all extremities Psychiatric: A+Ox3, euthymic affect Results & Data Vital Signs (Past 12 Hours) Vital Signs Temp Pulse Resp BP Pulse Ox 07/25/19 11:08 37.0 C 56 L 15 137/88 100 07/25/19 07:29 36.5 C 54 L 14 134/87 97 PG Care Time/CCT Total # of Minutes Spent Total Time Spent with Patient: Total time spent is greater than 50% in coordination of care (as documented) at patient's floor/unit and/or counseling patient: (1) Cerebral palsy Cerebral palsy type: unspecified type Qualified Code(s): G80.9 - Cerebral palsy, unspecified
[2019-07-26] MEDS: NSS + 20MEQ KCL 20 MEQ/1,000 ML BAG IV SCH ×2 (00:59→12:00)
[2019-07-26] MEDS: PIPERACILLIN/TAZOBACTAM 4.5 GM in DEXTROSE 5% 100 ML IV SCH ×2 (01:01→10:58)
[2019-07-26 06:25] LABS: Hemoglobin 15.7 g/dL (14.0-18.0); Mean Corpuscular Hgb Conc 34.9 g/dL (32-36); Mean Corpuscular Volume 94.5 fL (80-100); Mean Platelet Volume 10.1 fL (7.4-10.4); Platelet Count 240 K/uL (130-400); RDW Coefficient of Variation 11.9 % (11.5-14.5); RDW Standard Deviation 41.1 fL (36.4-46.3); Red Blood Count 4.76 M/uL (4.7-6.1); White Blood Count 10.29 K/uL (4.8-10.8)
[2019-07-26 06:51] LABS: BUN Creatinine Ratio 5.8 (10-20); Calcium 8.7 mg/dl (8.5-10.1); Creatinine Clr Calc Pharmacy 116.9 ml/min; Est GFR (African American) 105.6; Est GFR (Non-African American) 91.1; Potassium 4.1 mmol/L (3.5-5.1)
--- NOTE | 2019-07-26 12:43 | Surgery Progress Note ---
Date of Service July 26, 2019 Assessment & Plan (1) Diverticular disease of intestine with perforation and abscess: improved full liquid to low fiber diet for 4-6 weeks 10 -14 days abx total should have outpatient colonoscopy ok for d/c in next [address] Garza Subjective still having liquid/loose BM, tolerating full liquids Physical Exam Gastrointestinal (Abdomen): Inspection/Auscultation: abdomen not distended Percussion/Palpation: abdomen soft; abdomen nontender Results & Data Vital Signs (Past 12 Hours) Vital Signs Temp Pulse Resp BP Pulse Ox 07/26/19 07:24 36.8 C 63 16 128/88 96 PG Care Time/CCT Total # of Minutes Spent Total Time Spent with Patient: Total time spent is greater than 50% in coordination of care (as documented) at patient's floor/unit and/or counseling patient:
--- NOTE | 2019-07-26 16:34 | Discharge Summary ---
Date of Service July 26, 2019 Admission HPI Per Admitting Provider The patient is a 39-year-old male who presents to the emergency department with symptoms as noted above. Work-up in the emergency department included included a CT scan of the abdomen and pelvis which showed findings consistent with acute sigmoid diverticulitis, an associated microperforation, and a small developing pericolonic abscess measuring 2 cm. Recommendation to follow-up to resolution and to exclude the less likely possibility of an underlying colonic lesion. The patient will be admitted to hospital for further evaluation and treatment. Principal Diagnosis Acute Sigmoid Diverticulitis with Microperforation with Abscess Discharge Exam Constitutional WD/WN, vitals as above no acute distress and not ill appearing Eyes + anicteric sclerae Neck trachea midline Respiratory normal respiratory effort, lungs clear to auscultation Cardiovascular RRR, no murmur, no edema Gastrointestinal (Abdomen) Inspection/Auscultation: normal bowel sounds Percussion/Palpation: abdomen soft; abdomen nontender Musculoskeletal Head/Neck/Chest: normocephalic and head atraumatic Skin no rashes, warm and dry Neurologic moves all extremities Psychiatric A+Ox3, euthymic affect Discharge Data Allergies Allergy/AdvReac Type Severity Reaction Status Date / Time No Known Drug Allergies Allergy Unknown NONE Verified 09/28/17 10:52 Consultations 07/23/19 21:55 ED Decision to Admit Stat 07/23/19 23:32 Consult Case Management - Discharge Planning Routine 07/24/19 11:10 Consult General Surgery Routine Ordered Studies ABDOMEN AND PELVIS CT WITH IV CONTRAST FINDINGS: The lung bases are clear. No fractures within the visualized osseous structures. Mild hepatic steatosis. The liver, adrenal glands, pancreas, gallbladder, left kidney are unremarkable. There is a 4 mm stone within the upper pole the right kidney. No ureteral stones. No hydronephrosis. No retroperitoneal lymphadenopathy. Normal caliber abdominal aorta. No evidence for bowel obstruction. Normal appendix. The bladder is unremarkable. A few scattered colonic diverticula. There is focal thickening within the mid sigmoid colon with adjacent pericolonic fat stranding consistent with an acute diverticulitis. There are small foci of extraluminal gas adjacent to the mid sigmoid colon consistent with microperforation. There is a small adjacent extraluminal air- fluid level measuring 2.1 cm likely representing a developing abscess. IMPRESSION: 1. Above findings consistent with acute sigmoid diverticulitis. There is associated microperforation and a small developing pericolonic abscess measuring 2 cm. Recommend follow-up to resolution and to exclude the less likely possibility of underlying colonic lesion. 2. Right-sided nephrolithiasis. No hydronephrosis. 3. Hepatic steatosis. Hospital Course (1) Diverticular disease of intestine with perforation and abscess: - CT with acute sigmoid diverticulitis - associated microperforation and a small developing pericolonic abscess measuring 2 cm - Recommends F/U to resolution to exclude a colonic lesion -- Set up with [facility] PCP - Rx given for CT scan in 4 weeks - Advanced for regular diet with tolerance; Denies abdominal pain but continues with diarrhea; information given for low residue/fiber diet - Ciprofloxacin 500 mg BID and Flagyl 500 mg TID to complete 14 day course - Gen Surg following - no surgical intervention necessary at this time (2) Cerebral palsy: - STABLE; no acute issues (3) DVT prophylaxis: - SCDs Disposition: Rx for total of 14 day Abx course; Rx given for CT scan x 4 weeks for F/U of abscess; appt set with JOAQUÍN Kaplan Total Time Total Time Spent Total Time Spent (In Minutes): Greater than 30 minutes Discharge Plan Discharge Items Patient Disposition: Home - Self-Care Reason For Visit: DIVERTICULITIS, MICROPERF, PERICOLON ABSCESS Discharge Diagnosis: Diverticulitis Activity: Resume your previous activity Non-emergency contact: Primary Care Provider Call non-emergency contact if: you have any medication questions, your symptoms worsen and you have a fever Follow-up/Referrals: Randy Basurto CRNP [Primary Care Provider] - 07/30/19 7:00 am (Please, follow up at [facility] [place] Office with Randy YANES on MondayJuly 30 at 7:15 am (arrive 7:00 am). *He will be your new primary care provider. The office is located next to [facility]. If you have any questions, call the office at [phone].) Frantz Garza MD [Surgeon] - (Call to make an appt in approx 2 weeks) Diet: Low Fiber Addtl Attending Provider Instructions: Diverticulitis with Abscess (pocket of infection): - Your CAT scan shows inflammation and infection of the pouches of your colon/intestine. It appears one of these pouches may have popped and you may have an abscess or a pocket of infection. Thankfully at this time you do not need surgery just antibiotics - You will take Ciprofloxacin 500 mg twice a day and Flagyl 500 mg three times a day to complete a 14 day course which includes the time you were in the hospital. Take one of each of these pills tonight then resume as prescribed starting tomorrow on 07/27. - Please read the information sheet given with what diverticulitis is and some food recommendations. Recommend a low fiber/residual diet for 4-6 weeks and then the goal will be to have a high fiber diet once completely recovered. - You will have a prescription for a follow-up CAT scan to make sure this abscess is resolved. You will be set up with an appointment with Randy Basurto at the [facility] office in [place]. They will follow-up with the CAT scan results. You can take your prescription for this scan to their office and they will help set up the appointment - It is recommended that when you are fully recovered from this episode that you have a colonoscopy completed and the family doctor office can assist with this as well - For now recommend to avoid all foods that normally irritate your stomach. Avoid alcohol, high fatty foods/greasy foods, chocolate, and very acidic foods for at least a few weeks. - Can continue to use Tylenol as needed for mild discomfort. The diarrhea should improve over the next couple days but antibiotics can cause some looser stool. In this initial phase of things do not use anti-diarrheals until this infection is better controlled. Pending Studies at Discharge: No Stand-Alone Forms: Call Back Authorization, [facility], Smoking Cessation Medications and DC Order Prescriptions: New ciprofloxacin HCl 500 mg tablet 500 mg PO BID Qty: 23 RF: 0 metronidazole 500 mg tablet 500 mg PO Q8H Qty: 34 RF: 0 Continued [place]-Cat[place] Plus Cold (PE) 2-7.8-325 mg Tablet, Effervescent 2 ea PO UD PRN (Reason: Cold Symptoms) RF: 0 Discharge Orders: Discharge Order (Routine); Ordered 07/26/19 Ordered By: Cara Choi/Other Patient Handouts: Diet Low Residue, Diverticulosis Diverticulitis, ED Diverticulitis Admission Data Admit Date/Time: 07/23/19 22:39 Attending Provider: Handy Hernadez Admit Provider: Clayton Levy Primary Care Provider: Randy Basurto Other Providers: Clayton Levy ; Frantz Garza Other Interventions: Discharge Summary Assessment (RN) Last Done: 07/26/19 18:11 DC Date/Time DO NOT enter until pt leaves facility: 07/26/19 18:11 Supervising Physician Co-Signing Physician Notes Attending note: patient seen and examined with Cara Mckeon PA-C. I agree with her discharge summary. I personally reviewed the labs and imaging findings. patient doing much better, tolerating low residue diet, moving his bowels, no abdominal pain no fever, WBC normal - Diverticulitis with small abscess resolving well with bowel rest, IV antibiotics now tolerating diet, educated on importance of low residue diet complete a total of 14 days antibiotics, d/c home on Cipro and Flagyl PO follow up with PCP recommend repeat CT abdomen/pelvis in 4 weeks to assure resolution of abscess would also recommend referral to gastroenterology for colonoscopy in 6-8 weeks to exclude malignancy
== END 2019-07-26 18:11 | disposition home or self-care (01) | DRG 392 ==
LOC: ED 18:39 → SUATTDRO 22:39 → 3N 22:39

== ENCOUNTER 2020-07-13 12:26 | Inpatient (IN) ==
[2020-07-13] MEDS ORDERED: AMPICILLIN/SULBACTAM SOD 3,000 MG in 0.9 % SODIUM CHLORIDE 100 ML IV STA (12:52)
[2020-07-13] MEDS ORDERED: MoRPHine SULFATE 4 MG/ML 1 ML CARP\\VIAL IV STA (12:52)
[2020-07-13] MEDS ORDERED: SODIUM CHLORIDE 0.9% 1000ML 1,000 ML IV ONE (12:52)
[2020-07-13] MEDS ORDERED: ONDANSETRON INJ 2 MG/ML 2 ML VIAL IV STA (12:52)
--- NOTE | 2020-07-13 13:08 | Emergency Department Note ---
History of Present Illness General Chief Complaint: GI Assessment Stated Complaint: LOWER ABD PAIN,DIARRHEA Time Seen by Provider: 07/13/20 12:38 Source: patient Mode of arrival: ambulatory Limitations: no limitations History of Present Illness Provider Complaint: abdominal pain Onset (ago): 2 day(s) Pain Consistency: constant Location: LLQ Radiation: none Migration to: no migration Severity: severe Maximum Pain Intensity: 9 Current Pain Intensity: 9 Quality: + stabbing and + sharp Relieved By: + nothing Exacerbated By: + eating and + bowel movement Context: + history of similar episodes (with diverticulitis) Associated Symptoms: + nausea, + chills and + hematochezia; no vomiting, no diarrhea, no fever, no constipation, no dysuria, no hematemesis, no hematuria, no anorexia, no syncope, no back pain and no chest pain Treatments prior to arrival: none This 40 year old male patient presents to the ED via private vehicle accompanied by his for evaluation of "I think a diverticulitis again". The patient reports left lower quadrant pain and bright red blood per rectum which began on Monday. He denies any fevers, nausea, or vomiting. He does report some chills over the weekend. The patient does have a history of diverticulitis, per medical records this was with perforation and abscess which was managed supportively as an inpatient. The patient states his symptoms at this time feels similar in nature to what he experienced at that time. Patient denies any associated chest pain or dyspnea. He reports some diarrhea Monday morning, but none since. He states he has not had anything to eat since Monday evening. Patient does admit to drinking 6-12 beers daily and denies going greater than 24 hours without any alcohol use. He has taken no medications for his pain or diarrhea. He denies any weakness, vomiting, numbness, tingling, or other associated symptoms. Home Medications Home Medications Medication Instructions Recorded Confirmed Type No Known Home Medications 07/13/20 07/13/20 History Allergies Allergy/AdvReac Type Severity Reaction Status Date / Time No Known Drug Allergies Allergy Unknown NONE Verified 07/13/20 14:04 Past Med/Surg History Medical History Abscess of sigmoid colon due to diverticulitis Alcoholism /alcohol abuse Cerebral palsy Diverticulitis Social History Smoking Status: Current every day smoker Tobacco Type: Cigarettes Second Hand Exposure: Yes; Hx Alcohol Use: Yes Alcohol type: beer Hx Substance Use: No Preferred Language: Mongolian Communication Ability: Effective Knife Cutter Required: No Beliefs That Will Affect Care: None Current Living Situation: Parent Current Living Situation Comment: with dad Feels Safe at Home: Yes Assistive Devices: None Review of Systems A total of 10 systems reviewed and were otherwise negative Physical Exam Vital Signs: Vital Signs - 24 hr 07/13/20 12:33 07/13/20 14:47 Temperature 37 C Temperature Source Oral Pulse Rate 109 H Pulse Rate [Right Finger] 102 H Respiratory Rate 18 18 Respiratory Effort / Characteristics Non-Labored Sponta neous Non-Labored Sponta neous Respiratory Depth Normal Normal Respiratory Patter n Regular Regular Blood Pressure 144/90 H Blood Pressure [Le ft Arm] 130/88 Blood Pressure Ligia n 108 Blood Pressure Ligia n [Left Arm] 102 Blood Pressure Pos ition Sitting Blood Pressure Pos ition [Left Arm] Lying Pulse Oximetry 97 97 Oxygen Delivery Me thod Room Air Room Air Sepsis Recent Feve r Within 48 Hours No Sepsis New/Unexpla ined Change in Men rafy Status N/A Sepsis Action Take n by Nursing No Action Required Physical Exam: VITALS: Vitals are noted on the nurse's note and reviewed by myself. Vital signs stable. GENERAL: This is a 40-year-old obese white male, in no acute distress, nondiaphoretic, well-developed well-nourished. SKIN: The skin was without rashes, erythema, edema, or bruising. There is no tenting of the skin. Capillary refill less than 2 seconds. HEAD: Normocephalic atraumatic. EYES: Conjunctivae without injection, sclerae without icterus. NECK: Supple without nuchal rigidity. No lymphadenopathy. No thyromegaly. Cervical spine is nontender. No JVD. HEART: Regular rate and rhythm without murmurs gallops or rubs. LUNGS: Clear to auscultation bilaterally without wheezes, rales or rhonchi. No retractions or accessory muscle use. ABDOMEN: Positive bowel sounds x 4. Normal tympanic percussion. Left lower quadrant tenderness palpation with diffuse guarding. No rebound tenderness. MUSCULOSKELETAL: No muscle atrophy, erythema, or edema noted. Full range of motion without joint tenderness in all extremities. No tenderness to palpation. Normal gait. Strength 5/5 throughout. NEURO: Patient was alert and oriented to person place and time. No focal neurological deficits. Course Course The patient was seen and evaluated as above. An order was placed for continuous cardiac monitoring. The monitor shows a sinus tachycardia at a rate of 102 bpm. IV access obtained, labs drawn. Pt was medicated with IV fluids, Zofran, morphine, Unasyn. Imaging performed and reviewed by myself and radiologist as noted. Labs reviewed by myself. I discussed case with Pascual Diamond PA-C with general surgery. He recommends admission to medicine and they are happy to follow along and consult. I discussed the findings and recommendation with the patient at bedside. The patient was agreeable. I discussed the case with the finish production manager. I discussed the case with [facility] She is requesting a contact surgery regarding the admission. I again contacted Pascual Diamond PA-C with general surgery. He again recommends medicine admission. I advised Kady of this recommendation and she agrees to admit the patient. Administered Medications Discontinued Medications Sodium Chloride (Nss 1000ml) 1,000 mls @ 999 mls/hr IV .Q1H1M ONE Stop: 07/13/20 13:52 Last Infusion: 07/13/20 14:44 Dose: 0 mls/hr Documented by: [id number] Admin: 07/13/20 13:21 Dose: 999 mls/hr Documented by: [id number] Ampicillin Sodium/Sulbactam Sodium 3,000 mg/ Sodium Chloride 108 mls @ 200 mls/hr IV NOW STA; Protocol Stop: 07/13/20 13:24 Last Infusion: 07/13/20 13:57 Dose: 0 mls/hr Documented by: [id number] Admin: 07/13/20 13:21 Dose: 200 mls/hr Documented by: [id number] Ioversol (Ioversol 100ml) 94 ml IV ONCE ONE Stop: 07/13/20 14:08 Last Admin: 07/13/20 14:08 Dose: 94 ml Documented by: [id number] Morphine Sulfate (Morphine Sulfate 4 Mg/Ml 1 Ml Carp\\Vial) 4 mg IV NOW STA Stop: 07/13/20 12:53 Last Admin: 07/13/20 13:20 Dose: 4 mg Documented by: [id number] Ondansetron HCl (Ondansetron Inj 2 Mg/Ml 2 Ml Vial) 4 mg IV NOW STA Stop: 07/13/20 12:53 Last Admin: 07/13/20 13:20 Dose: 4 mg Documented by: [id number] Medical Decision Making Differential Diagnosis + peptic ulcer disease, + biliary pathology, + UTI, + obstruction, + mesenteric ischemia, + aortic pathology, + infections, + inflammatory bowel disease, + renal colic, + torsion (male), + epididymitis (male), + abdominal pain, + appendicitis, + calculus of kidney, + constipation, + diverticulitis, + gastroenteritis, + pancreatitis and + small bowel obstruction Medical Records Attestation: I reviewed the patient's medical records. Home Medications Current Medication List: was personally reviewed by me Laboratory Data Attestation: I reviewed the patient's lab results. . Leukocytosis of 17,000. No anemia or thrombocytopenia. Coags normal. Patient is mildly hyponatremic at 128. Renal, hepatic function and electrolytes otherwise without significant acute abnormality. Total bilirubin mildly eleva nereyda 1.5. Urinalysis negative for clear evidence of infection. Result diagrams: 07/13/20 13:15 07/13/20 13:15 Lab Results 07/13/20 07/13/20 07/13/20 Range/Units 13:15 13:15 13:15 WBC 17.24 H (4.8-10.8) K/uL RBC 4.81 (4.7-6.1) M/uL Hgb 15.5 (14.0-18.0) g/dL Hct 45.1 (42-52) % MCV 93.8 (80-100) fL MCH 32.2 (25-34) pg MCHC 34.4 (32-36) g/dL RDW Std Deviation 41.4 (36.4-46.3) fL RDW Coeff of Nancy 12.2 (11.5-14.5) % Plt Count 193 (130-400) K/uL MPV 10.8 H (7.4-10.4) fL Immature Gran % (Auto) 0.3 % Neut % (Auto) 81.4 % Lymph % (Auto) 9.7 % [place] % (Auto) 8.2 % Eos % (Auto) 0.3 % Baso % (Auto) 0.1 % Neut # (Auto) 14.01 H (1.4-6.5) K/uL Lymph # (Auto) 1.68 (1.2-3.4) K/uL [place] # (Auto) 1.41 H (0.11-0.59) K/uL Eos # (Auto) 0.06 (0-0.5) K/uL Baso # (Auto) 0.02 (0-0.2) K/uL Immature Gran # (Auto) 0.06 H (0.00-0.02) K/uL PT 11.6 (9.0-12.0) Seconds INR 1.1 (0.9-1.1) APTT 26.5 (21.0-31.0) Seconds PTT Ratio 0.9 Sodium 128 L (136-145) mmol/L Potassium 4.1 (3.5-5.1) mmol/L Chloride 98 (98-107) mmol/L Carbon Dioxide 23 (21-32) mmol/L Anion Gap 7.0 (3-11) BUN 16 (7-18) mg/dl Creatinine 1.08 (0.6-1.4) mg/dl Est Cr Clr Drug Dosing 116.5 ml/min Est GFR ( Amer) 99.0 Est GFR (Non-Af Amer) 85.4 BUN/Creatinine Ratio 15.1 (10-20) Glucose 112 H (70-99) mg/dl Calcium 8.8 (8.5-10.1) mg/dl Total Bilirubin 1.5 H (0.2-1) mg/dl AST 13 L (15-37) U/L ALT 25 (12-78) U/L Alkaline Phosphatase 100 (45-117) U/L Total Protein 7.5 (6.4-8.2) gm/dl Albumin 2.9 L (3.4-5.0) gm/dl Globulin 4.6 H (2.5-4.0) gm/dl Albumin/Globulin Ratio 0.6 L (0.9-2) Specimen Hemolysis Urine Color Urine Appearance (Clear) Urine pH (4.5-7.5) Ur Specific [place] (1.000-1.030) Urine Protein (Negative) Urine Glucose (UA) (Negative) Urine Ketones (Negative) Urine Blood (Negative) Urine Nitrite (Negative) Urine Bilirubin (Negative) Urine Urobilinogen (Negative) Ur Leukocyte Esterase (Negative) Urine WBC (Auto) (0-5) /hpf Urine RBC (Auto) (0-4) /hpf U Hyaline Cast (Auto) (0-5) /lpf U Epithel Cells (Auto) (0-5) /lpf Urine Bacteria (Auto) (Negative) 07/13/20 Range/Units 14:25 WBC (4.8-10.8) K/uL RBC (4.7-6.1) M/uL Hgb (14.0-18.0) g/dL Hct (42-52) % MCV (80-100) fL MCH (25-34) pg MCHC (32-36) g/dL RDW Std Deviation (36.4-46.3) fL RDW Coeff of Nancy (11.5-14.5) % Plt Count (130-400) K/uL MPV (7.4-10.4) fL Immature Gran % (Auto) % Neut % (Auto) % Lymph % (Auto) % [place] % (Auto) % Eos % (Auto) % Baso % (Auto) % Neut # (Auto) (1.4-6.5) K/uL Lymph # (Auto) (1.2-3.4) K/uL [place] # (Auto) (0.11-0.59) K/uL Eos # (Auto) (0-0.5) K/uL Baso # (Auto) (0-0.2) K/uL Immature Gran # (Auto) (0.00-0.02) K/uL PT (9.0-12.0) Seconds INR (0.9-1.1) APTT (21.0-31.0) Seconds PTT Ratio Sodium (136-145) mmol/L Potassium (3.5-5.1) mmol/L Chloride (98-107) mmol/L Carbon Dioxide (21-32) mmol/L Anion Gap (3-11) BUN (7-18) mg/dl Creatinine (0.6-1.4) mg/dl Est Cr Clr Drug Dosing ml/min Est GFR ( Amer) Est GFR (Non-Af Amer) BUN/Creatinine Ratio (10-20) Glucose (70-99) mg/dl Calcium (8.5-10.1) mg/dl Total Bilirubin (0.2-1) mg/dl AST (15-37) U/L ALT (12-78) U/L Alkaline Phosphatase (45-117) U/L Total Protein (6.4-8.2) gm/dl Albumin (3.4-5.0) gm/dl Globulin (2.5-4.0) gm/dl Albumin/Globulin Ratio (0.9-2) Specimen Hemolysis Urine Color Yellow Urine Appearance Clear (Clear) Urine pH 5.5 (4.5-7.5) Ur Specific [place] 1.029 (1.000-1.030) Urine Protein Trace H (Negative) Urine Glucose (UA) Negative (Negative) Urine Ketones 1+ H (Negative) Urine Blood 1+ H (Negative) Urine Nitrite Negative (Negative) Urine Bilirubin Negative (Negative) Urine Urobilinogen Negative (Negative) Ur Leukocyte Esterase Negative (Negative) Urine WBC (Auto) 1-5 (0-5) /hpf Urine RBC (Auto) 0-4 (0-4) /hpf U Hyaline Cast (Auto) 1-5 (0-5) /lpf U Epithel Cells (Auto) 0-5 (0-5) /lpf Urine Bacteria (Auto) Negative (Negative) Imaging Data Radiologist's Impression: CT abd pelvis IV con only CLINICAL HISTORY: LLQ pain COMPARISON STUDY: 07/23/2019 TECHNIQUE: The patient was scanned in a dynamic helical fashion during intravenous administration of 94 cc of Optiray 320 A dose lowering technique was utilized adhering to the principles of ALARA. CT DOSE: 1456.33 mGy.cm FINDINGS: Lower chest: There are minor basilar atelectatic changes. Liver: There is hepatic steatosis. No focal hepatic masses are visualized. Gallbladder: Unremarkable. Spleen: Normal in size and attenuation. Pancreas: Unremarkable. Adrenal glands: Unremarkable. Kidneys: There is no hydronephrosis. No solid renal masses are visualized. There is a single punctate nonobstructing calculus within each kidney Bowel: There are no transition zones to indicate bowel obstruction. The appendix appears normal. There is sausagelike thickening of the sigmoid colon. There is infiltration of the pericolonic fat. There is a small amount of fluid within the left paracolic gutter. There is a 49 mm extraluminal gas collection located lateral to the sigmoid colon consistent with a focal perforation. The findings are again indicative of sigmoid diverticulitis with a microperforation. Peritoneum: There is extraluminal gas adjacent to the sigmoid colon. There is a small amount of fluid within the left paracolic gutter. Vasculature: The abdominal aorta is normal in course and caliber. Adenopathy: None. Pelvic viscera: The bladder, and pelvic viscera are unremarkable. Skeletal structures: There are a few scattered sclerotic densities consistent with bone islands.. No destructive skeletal lesions are visualized. IMPRESSION: 1. CT findings indicative of acute sigmoid diverticulitis with a microperforation, and extraluminal gas. There is infiltration of the surrounding fat, there is a small amount of fluid within the left paracolic gutter 2. No evidence of bowel obstruction. No evidence of free air 3. Punctate bilateral nonobstructing renal calculi 4. Hepatic steatosis ACT 112: Negative or not required by law. Electronically signed by: Tom Ley M.D. 07/13/2020 2:24 PM Blood Pressure Blood Pressure Findings: Elevated blood pressure Blood Pressure Disposition: elevated BP felt to be situational MDM Narrative This 40-year-old male patient presents to the emergency department today for evaluation of left lower quadrant abdominal pain consistent with diverticulitis he experienced 1 year ago. The patient at that time did have microperforation and abscess associated with the sigmoid diverticular disease. He was admitted to the hospital for several days with IV antibiotics and supportive care. The patient's case is somewhat complicated by alcoholism. Work appear in the ED today consistent again with acute sigmoid diverticulitis with microperforation. No evidence of abscess at this time. The patient does have a leukocytosis of 17,000. He was given a dose of Unasyn and pain was medicated with morphine and Zofran. I did consult with surgery. He will be admitted to the medicine service. Please see hospitalist and surgery dictation regarding ongoing management care of this patient. The chart was completed utilizing [employer] voice recognition software. Grammatical errors, random word insertions, pronoun errors, and incomplete sentences are an occasional consequence of this system due to software limitations, ambient noise, and hardware issues. Any formal questions or concerns about the content, text, or information contained within the body of this dictation should be directly addressed to the provider for clarification. Impression & Plan Perforation of sigmoid colon due to diverticulitis Discharge Plan Visit Data Chief Complaint: GI Assessment Stated Complaint: LOWER ABD PAIN,DIARRHEA ED Provider: Michelle Edmond ED Midlevel Provider: Yi Razo Discharge Problem: Perforation of sigmoid colon due to diverticulitis Patient Disposition: Admitted As Inpatient Condition: Good Forms Stand Alone Forms: [facility], [facility] Emergency Department, Important Visit Information Prescriptions Prescriptions: No Action No Known Home Medications RF: 0 Referrals Referrals: PCP,NO [Primary Care Provider] -
[2020-07-13 13:25] LABS: Basophils # (auto) 0.02 K/uL (0-0.2); Basophils % (auto) 0.1 %; Eosinophils # (auto) 0.06 K/uL (0-0.5); Eosinophils % (auto) 0.3 %; Hematocrit (blood only) 45.1 % (42-52); Hemoglobin 15.5 g/dL (14.0-18.0); Immature Granulocytes # (auto) 0.06 K/uL (0.00-0.02); Immature Granulocytes % (auto) 0.3 %; Lymphocytes # (auto) 1.68 K/uL (1.2-3.4); Lymphocytes % (auto) 9.7 %; Mean Corpuscular Hemoglobin 32.2 pg (25-34); Mean Corpuscular Hgb Conc 34.4 g/dL (32-36); Mean Corpuscular Volume 93.8 fL (80-100); Mean Platelet Volume 10.8 fL (7.4-10.4); Monocytes # (auto) 1.41 K/uL (0.11-0.59); Monocytes % (auto) 8.2 %; Neutrophils # (auto) 14.01 K/uL (1.4-6.5); Neutrophils % (auto) 81.4 %; Platelet Count 193 K/uL (130-400); RDW Coefficient of Variation 12.2 % (11.5-14.5); RDW Standard Deviation 41.4 fL (36.4-46.3); Red Blood Count 4.81 M/uL (4.7-6.1); White Blood Count 17.24 K/uL (4.8-10.8)
[2020-07-13 13:43] LABS: INR 1.1 (0.9-1.1); Partial Thromboplastin Ratio 0.9; Partial Thromboplastin Time 26.5 Seconds (21.0-31.0); Prothrombin Time 11.6 Seconds (9.0-12.0)
[2020-07-13 13:47] LABS: Albumin Level 2.9 gm/dl (3.4-5.0); BUN Creatinine Ratio 15.1 (10-20); Calcium 8.8 mg/dl (8.5-10.1); Creatinine Clr Calc Pharmacy 116.5 ml/min; Est GFR (Non-African American) 85.4; Potassium 4.1 mmol/L (3.5-5.1)
[2020-07-13 13:50] LABS: Albumin Globulin Ratio 0.6 (0.9-2); Bilirubin,Total 1.5 mg/dl (0.2-1); Globulin 4.6 gm/dl (2.5-4.0); Total Protein 7.5 gm/dl (6.4-8.2)
[2020-07-13] MEDS ORDERED: IOVERSOL 100ml IV ONE (14:07)
--- NOTE | 2020-07-13 14:26 | CT Scan Report ---
CT abd pelvis IV con only CLINICAL HISTORY: LLQ pain COMPARISON STUDY: 07/23/2019 TECHNIQUE: The patient was scanned in a dynamic helical fashion during intravenous administration of 94 cc of Optiray 320 A dose lowering technique was utilized adhering to the principles of ALARA. CT DOSE: 1456.33 mGy.cm FINDINGS: Lower chest: There are minor basilar atelectatic changes. Liver: There is hepatic steatosis. No focal hepatic masses are visualized. Gallbladder: Unremarkable. Spleen: Normal in size and attenuation. Pancreas: Unremarkable. Adrenal glands: Unremarkable. Kidneys: There is no hydronephrosis. No solid renal masses are visualized. There is a single punctate nonobstructing calculus within each kidney Bowel: There are no transition zones to indicate bowel obstruction. The appendix appears normal. Ther e is sausagelike thickening of the sigmoid colon. There is infiltration of the pericolonic fat. There is a small amount of fluid within the left paracolic gutter. There is a 49 mm extraluminal gas colle ction located lateral to the sigmoid colon consistent with a focal perforation. The findings are agai n indicative of sigmoid diverticulitis with a microperforation. Peritoneum: There is extraluminal gas adjacent to the sigmoid colon. There is a small amount of fluid within the left paracolic gutter. Vasculature: The abdominal aorta is normal in course and caliber. Adenopathy: None. Pelvic viscera: The bladder, and pelvic viscera are unremarkable. Skeletal structures: There are a few scattered sclerotic densities consistent with bone islands.. No destructive skeletal lesions are visualized. IMPRESSION: 1. CT findings indicative of acute sigmoid diverticulitis with a microperforation, and extraluminal g as. There is infiltration of the surrounding fat, there is a small amount of fluid within the left pa racolic gutter 2. No evidence of bowel obstruction. No evidence of free air 3. Punctate bilateral nonobstructing renal calculi 4. Hepatic steatosis ACT 112: Negative or not required by law. Electronically signed by: Tom Ley M.D. 07/13/2020 2:24 PM
[2020-07-13 14:48] LABS: Appearance Urine Clear (Clear); Bacteria Urine Automated Negative (Negative); Bilirubin Urine Negative (Negative); Blood Urine 1+ (Negative); Color Urine Yellow; Epithelial Cell Urine Auto 0-5 /lpf (0-5); Glucose Urine UA Negative (Negative); Ketones Urine 1+ (Negative); Leukocyte Esterase Urine Negative (Negative); Nitrite Urine Negative (Negative); Protein Urine Trace (Negative); RBC Urine Automated 0-4 /hpf (0-4); Specific Gravity Urine 1.029 (1.000-1.030); Urobilinogen Urine Negative (Negative); pH Urine 5.5 (4.5-7.5)
--- NOTE | 2020-07-13 16:15 | History & Physical Report ---
Date of Service July 13, 2020 Assessment & Plan (1) LLQ abdominal pain: (2) Diverticulitis: - Admit to med tele with risk of alcohol withdrawal since last drink was on Monday night, currently tachycardic - Noted diverticulitis on CT abd/pelvis with microperforation, no abscess - if worsening pain then would repeat imaging to r/o abscess formation - Given dose of unasyn in the ER, will continue with IV zosyn and likely transition to PO cipro/flagyl on dc - Continue NSS at 125ml/hr x 1 day - Supportive therapy with Zofran, Tylenol, pain medications as needed - General surgery consulted - WBC = 17 K, trend with a.m. labs to show resolving leukocytosis - Afebrile - NPO except sips and chips (3) Cerebral palsy: - Hx of such, noted (4) Alcohol abuse: - Start on gabapentin for alcohol withdrawal, last drink Monday night. - Tachycardic - Banana bag for now with NPO status - Discussion held regarding cessation, pt reports wanting to quit, continue to encourage throughout stay and prior to dc - Hepatic steatosis seen on CT imaging (5) Chewing tobacco nicotine dependence: - Cessation encouraged, denies need for nicotine patch (6) Obesity, morbid, BMI 40.0-49.9: -BMI 41.5, diet exercise to be encouraged -N.p.o., placed on heart healthy diet once allowed p.o. intake DVT ppx: - teds, ambulatory CODE: Full Dispo: From home, likely to remain in the hospital x 1-2 days History of Present Illness Primary Care Provider: NO PCP This is a 40-year-old male with PMHx of cerebral palsy, alcohol use, who presents with acute abdominal pain which started on Monday night found to have diverticulitis with microperforation. He was admitted approximately 1 year ago for similar presentation and had a small abscess at that point in time. He currently does not have any abscess shown on CT imaging. He reports his pain is significant and located in the LLQ, exacerbated with moving and sitting forward, nothing specifically has improved it other than pain medication given here. Patient has not had anything to eat since Monday night, where he had pizza for dinner. Has been able to tolerate fluids without difficulty. He had bloody bowel movements multiple times on Monday morning, denies any bowel movements in the last 1 day, urinating without any difficulty. He drinks alcohol approximately 12 beers per day routinely, denies any history of withdrawal, shakiness, seizure in the past. He reports "I need to quit", but reports that he also chews snuff and wants to stop doing this as well. He denies any need for nicotine patch. Pt's father lives at home with him. Allergies Allergy/AdvReac Type Severity Reaction Status Date / Time No Known Drug Allergies Allergy Unknown NONE Verified 07/13/20 14:04 Home Medications Home Medications Medication Instructions Recorded Confirmed Type No Known Home Medications 07/13/20 07/13/20 History Past Med/Surg History Medical History Abscess of sigmoid colon due to diverticulitis Alcoholism /alcohol abuse Cerebral palsy Diverticulitis Social History Smoking Status: Current some day smoker Tobacco Type: Cigarettes Cigarettes Per Day: occasional smoker; Second Hand Exposure: Yes; Do You Dip or Chew Tobacco: Yes (1 can/day); Tobacco Cessation Education Requested by Patient: No Hx Alcohol Use: Yes Alcohol type: beer Hx Substance Use: No Preferred Language: Venezuelan Communication Ability: Effective Director Medical Safety Required: No Beliefs That Will Affect Care: None Current Living Situation: Family Current Living Situation Comment: Father lives with patient Other Information That Helps Us Care for You: No Feels Safe at Home: Yes Safety Concerns: Feels Safe At This Time Assistive Devices: None Review of Systems Review of Systems: Constitutional: No fever, sweats or chills Eyes: No diplopia, no worsening or blurred vision ENT: normal hearing, no trouble swallowing Respiratory: No cough, sputum, dyspnea at rest or on exertion Cardiovascular: No chest pain, tightness or palpitations Abdomen: + LLQ pain with deep palpitation, no nausea, vomiting, + diarrhea with bloody bowel movements on Monday, no constipation Musculoskeletal: No joint pain, calf pain, swelling Neurologic: No weakness, numbness/tingling, or balance problems Psychiatric: No anxiety or depression Skin: No rash or itch Physical Exam Physical Exam: General: awake, alert, no apparent distress, + obese with BMI of 41.5 Head: Normocephalic, atraumatic ENT: PERRL, EOMI, no pharyngeal exudate, mucous membranes moist Chest: Clear to auscultation, on room air, no adventitious breath sounds Cardiac: +sinus tachycardia, HR = 102, no murmur, no JVD, normal peripheral pulses, good capillary refill Abdominal: NABS x 4 quadrants, soft, + LLQ pain with palpation, nondistended, no rebound or guarding Extremities: Normal inspection, no peripheral edema or erythema, calfs nontender to palpation Psych: Normal mood and affect Neuro: AAO x 3, strength intact bilaterally and rated 5/5, no motor deficits, speech is clear, no peripheral sensory deficits Results & Data Results & Data ([facility]) Vital Signs (Past 12 Hours) Vital Signs Temp Pulse Pulse Resp BP BP Pulse Ox 07/13/20 14:47 102 H 18 130/88 97 07/13/20 12:33 37 C 109 H 18 144/[address] abd pelvis IV con only CLINICAL HISTORY: LLQ pain COMPARISON STUDY: 07/23/2019 TECHNIQUE: The patient was scanned in a dynamic helical fashion during intravenous administration of 94 cc of Optiray 320 A dose lowering technique was utilized adhering to the principles of ALARA. CT DOSE: 1456.33 mGy.cm FINDINGS: Lower chest: There are minor basilar atelectatic changes. Liver: There is hepatic steatosis. No focal hepatic masses are visualized. Gallbladder: Unremarkable. Spleen: Normal in size and attenuation. Pancreas: Unremarkable. Adrenal glands: Unremarkable. Kidneys: There is no hydronephrosis. No solid renal masses are visualized. There is a single punctate nonobstructing calculus within each kidney Bowel: There are no transition zones to indicate bowel obstruction. The appendix appears normal. There is sausagelike thickening of the sigmoid colon. There is infiltration of the pericolonic fat. There is a small amount of fluid within the left paracolic gutter. There is a 49 mm extraluminal gas collection located lateral to the sigmoid colon consistent with a focal perforation. The findings are again indicative of sigmoid diverticulitis with a microperforation. Peritoneum: There is extraluminal gas adjacent to the sigmoid colon. There is a small amount of fluid within the left paracolic gutter. Vasculature: The abdominal aorta is normal in course and caliber. Adenopathy: None. Pelvic viscera: The bladder, and pelvic viscera are unremarkable. Skeletal structures: There are a few scattered sclerotic densities consistent with bone islands.. No destructive skeletal lesions are visualized. IMPRESSION: 1. CT findings indicative of acute sigmoid diverticulitis with a microperforation, and extraluminal gas. There is infiltration of the surrounding fat, there is a small amount of fluid within the left paracolic gutter 2. No evidence of bowel obstruction. No evidence of free air 3. Punctate bilateral nonobstructing renal calculi 4. Hepatic steatosis Code Status & VTE Plan Code Status Full code - discussed with the pt at bedside VTE Prophylaxis Plan VTE Prophylaxis will be ordered: Yes Supervising Physician Co-Signing Physician Notes Patient was seen and examined independently I discussed the case with Kady ROSAS I reviewed pertinent past medical social family history and also the plan of care and agree with the plan of care. Patient is mild left lower quadrant abdominal pain consistent with his micro per diverticulitis. He states he had that episode almost 1 year ago at which she was hospitalized and was not bothered by alcohol withdrawal. Patient drinks a 12 pack a day and states he typically does not usually have any withdrawal symptoms but typically does not skip drinking. Patient was started on Unasyn therapy in the ER. He will be begun on the gabapentin withdrawal protocol will be switched to Zosyn therapy as an inpatient His exam he feels quite comfortable he is exhibiting no signs of agitation or p hysiology consistent with withdrawal Has mild abdominal pain without rebound or guarding Any exceptions will be noted below PG Care Time/CCT Total # of Minutes Spent Total Time Spent with Patient: Total time spent is greater than 50% in coordination of care (as documented) at patient's floor/unit and/or counseling patient: Coding Level of Care Code 31981 Initial Inpt Care Lvl 3 Diagnoses LLQ abdominal pain R10.32 Diverticulitis K57.92 Cerebral palsy G80.9 Cerebral palsy type: unspecified type Alcohol abuse F10.10 Chewing tobacco nicotine dependence F17.220 Obesity, morbid, BMI 40.0-49.9 E66.01 (1) Cerebral palsy Cerebral palsy type: unspecified type Qualified Code(s): G80.9 - Cerebral palsy, unspecified
[2020-07-13] MEDS ORDERED: MULTI-VITAMIN INFUSION 10 ML, THIAMINE HCL 100 MG, FOLIC ACID 1 MG in SODIUM CHLORIDE 0... IV ONE (16:20)
--- NOTE | 2020-07-13 17:08 | Surgery Consultation ---
Date of Consultation July 13, 2020 Assessment & Plan (1) Diverticulitis large intestine: No peritoneal findings. Admit for IV abx, NPO tonight. Will follow. Supervising Physician Co-Signing Physician Notes I personally saw and evaluated the patient with Pascual Diamond PA-C and agree with the assessment and plan. 40 yo male with acute diverticulitis and microperforation -CT images and results reviewed -Keep NPO, Continue IVF -Zosyn -Serial abdominal exams -Trend Leukocytosis -Will follow History of Present Illness History of Present Illness 40 y/o male seen last year for 2 cm diverticular abscess now with LLQ pain and chills starting 2 days ago. Had loose BM initially now none for past 2 days. No fevers. Did well after last years admission, did not have outpatient f/u. Allergies Allergy/AdvReac Type Severity Reaction Status Date / Time No Known Drug Allergies Allergy Unknown NONE Verified 07/13/20 14:04 Home Medications Home Medications Medication Instructions Recorded Confirmed Type No Known Home Medications 07/13/20 07/13/20 History Patient History Medical History Abscess of sigmoid colon due to diverticulitis Alcoholism /alcohol abuse Cerebral palsy Diverticulitis Social History Smoking Status: Current some day smoker Tobacco Type: Cigarettes Cigarettes Per Day: occasional smoker; Second Hand Exposure: Yes; Do You Dip or Chew Tobacco: Yes (1 can/day); Tobacco Cessation Education Requested by Patient: No Hx Alcohol Use: Yes Alcohol type: beer Hx Substance Use: No Preferred Language: Malagasy Communication Ability: Effective Thin Film Technician Required: No Beliefs That Will Affect Care: None Current Living Situation: Family Current Living Situation Comment: Father lives with patient Other Information That Helps Us Care for You: No Feels Safe at Home: Yes Safety Concerns: Feels Safe At This Time Assistive Devices: None Review of Systems Constitutional: + chills and + anorexia; no fever Eyes: no worsening vision Respiratory: no cough and no dyspnea Cardiovascular: no chest pain and no dyspnea Gastrointestinal: + abdominal pain, + nausea and + diarrhea/loose stools; no vomiting Genitourinary: no dysuria Musculoskeletal: no back pain Integumentary: no rash and no lesions Psychiatric: no behavioral changes and no depression Hematologic / Lymphatic: no easy bleeding Physical Exam Constitutional: WD/WN, vitals as above Eyes: PERRL, conjunctivae normal, anicteric sclerae ENMT: external ear and nose normal, oropharynx normal Neck: trachea midline, no thyromegaly Respiratory: normal respiratory effort, lungs clear to auscultation Cardiovascular: Rate/Rhythm: regular rhythm and + tachycardic Gastrointestinal (Abdomen): Inspection/Auscultation: abdomen not distended Percussion/Palpation: + abdomen tender (LLQ), + guarding and abdomen soft Skin: no rashes, warm and dry Psychiatric: A+Ox3, euthymic affect Lymphatic: no inguinal lymphadenopathy Results & Data ([facility]) Vital Signs (Past 12 Hours) Vital Signs Temp Pulse Pulse Resp BP BP Pulse Ox 07/13/20 14:47 102 H 18 130/88 97 07/13/20 12:33 37 C 109 H 18 144/90 H 97 PG Care Time/CCT Total # of Minutes Spent Total Time Spent with Patient: Total time spent is greater than 50% in coordination of care (as documented) at patient's floor/unit and/or counseling patient: Coding Level of Care Code 22209 Inpt Consult Level 3 Diagnoses Diverticulitis large intestine K57.32
[2020-07-13] MEDS ORDERED: ONDANSETRON INJ 2 MG/ML 2 ML VIAL IV PRN (17:46)
[2020-07-13] MEDS ORDERED: GABAPENTIN 800MG ALCOHOL WITHDRAWAL LOAD PO ONE (17:46)
[2020-07-13] MEDS ORDERED: PIPERACILL/TAZOBAC CONSULT ACTIVE PRN (17:46)
[2020-07-13] MEDS ORDERED: PIPERACILLIN/TAZOBACTAM 3.375 GM in DEXTROSE 5% 100 ML IV SCH (17:46)
[2020-07-13] MEDS ORDERED: INFLUENZA VIRUS QUAD VACCINE 0.5 ML SYR IM ONE (17:56)
[2020-07-13] MEDS ORDERED: INFLUENZA ADMINISTRATION CHARGE ONE (17:56)
[2020-07-13] MEDS ORDERED: GABAPENTIN 400 MG CAP PO ONE (18:00)
[2020-07-13] MEDS: SODIUM CHLORIDE 0.9% 1000ML 1,000 ML IV SCH (18:05)
[2020-07-13] MEDS ORDERED: PIPERACILLIN/TAZOBACTAM 4.5 GM in DEXTROSE 5% 100 ML IV ONE (18:15)
[2020-07-13] MEDS: MoRPHine SULFATE 4 MG/ML 1 ML CARP\\VIAL IV PRN ×2 (18:26→22:09)
[2020-07-13] MEDS: ACETAMINOPHEN 325 MG TAB PO PRN (20:07)
[2020-07-13] MEDS: GABAPENTIN 400 MG CAP PO SCH (23:47)
[2020-07-13] MEDS: PIPERACILLIN/TAZOBACTAM 4.5 GM in DEXTROSE 5% 100 ML IV SCH (23:47)
[2020-07-14] MEDS: MoRPHine SULFATE 4 MG/ML 1 ML CARP\\VIAL IV PRN ×3 (00:15→09:01)
[2020-07-14] MEDS: SODIUM CHLORIDE 0.9% 1000ML 1,000 ML IV SCH ×2 (02:02→10:20)
[2020-07-14] MEDS: ACETAMINOPHEN 325 MG TAB PO PRN (03:37)
[2020-07-14] MEDS ORDERED: ACETAMINOPHEN 1000 MG/100 ML IV IV SCH (04:45)
[2020-07-14] MEDS: ACETAMINOPHEN 1,000 MG/100 ML VIAL IV SCH ×3 (05:07→21:43)
[2020-07-14] MEDS: GABAPENTIN 400 MG CAP PO SCH ×3 (05:10→21:44)
[2020-07-14 06:23] LABS: Hematocrit (blood only) 41.5 % (42-52); Hemoglobin 14.1 g/dL (14.0-18.0); Mean Corpuscular Hemoglobin 32.5 pg (25-34); Mean Corpuscular Volume 95.6 fL (80-100); Mean Platelet Volume 10.4 fL (7.4-10.4); Platelet Count 187 K/uL (130-400); RDW Coefficient of Variation 12.4 % (11.5-14.5); RDW Standard Deviation 43.1 fL (36.4-46.3); Red Blood Count 4.34 M/uL (4.7-6.1); White Blood Count 11.59 K/uL (4.8-10.8)
[2020-07-14 06:55] LABS: Albumin Globulin Ratio 0.6 (0.9-2); Albumin Level 2.5 gm/dl (3.4-5.0); BUN Creatinine Ratio 14.4 (10-20); Bilirubin,Total 1.5 mg/dl (0.2-1); Calcium 8.2 mg/dl (8.5-10.1); Creatinine Clr Calc Pharmacy 141.4 ml/min; Globulin 4.2 gm/dl (2.5-4.0); Potassium 3.8 mmol/L (3.5-5.1); Total Protein 6.7 gm/dl (6.4-8.2)
--- NOTE | 2020-07-14 08:40 | Surgery Progress Note ---
Date of Service July 14, 2020 Assessment & Plan (1) Diverticulitis large intestine: Afebrile overnight, WBC improved can start clears cont Zosyn Admission and Anticipated Discharge Date Admission Date: July 13, 2020 Supervising Physician Co-Signing Physician Notes I personally saw and evaluated the patient with Pascual Diamond PA-C and agree with the assessment and plan 40 yo with acute diverticulitis with microperforation -Keep on clears -Continue Zosyn -Will follow Subjective feeling better, no BM Physical Exam Physical Exam: Tmax 37.8 Constitutional: WD/WN, vitals as above Respiratory: normal respiratory effort Cardiovascular: RRR, no murmur, no edema Gastrointestinal (Abdomen): Percussion/Palpation: + abdomen tender (slightly less) and abdomen soft Results & Data ([facility]) Vital Signs (Past 12 Hours) Vital Signs Temp Pulse Pulse Resp BP BP Pulse Ox 07/14/20 07:47 82 07/14/20 07:46 36.8 C 96 H 18 108/65 93 07/14/20 04:00 37.1 C 92 H 18 148/78 H 94 07/14/20 00:20 92 H 07/13/20 23:56 36.8 C 87 18 111/72 96 07/13/20 21:17 37.5 C PG Care Time/CCT Total # of Minutes Spent Total Time Spent with Patient: Total time spent is greater than 50% in coordination of care (as documented) at patient's floor/unit and/or counseling patient: Coding Level of Care Code 28426 Subseq Hosp Care Lvl 1 Diagnoses Diverticulitis large intestine K57.32
[2020-07-14] MEDS: PIPERACILLIN/TAZOBACTAM 4.5 GM in DEXTROSE 5% 100 ML IV SCH ×2 (09:00→17:16)
[2020-07-14] MEDS: FOLIC ACID 1 MG in SYRINGE 9.8 ML IV SCH (10:20)
[2020-07-14] MEDS: THIAMINE HCL 200 MG in SODIUM CHLORIDE 0.9% 50 ML IV SCH ×2 (10:21→21:48)
[2020-07-14] MEDS: HEPARIN SOD 5,000 UNIT/0.5 ML VIAL SQ SCH ×2 (13:43→21:44)
[2020-07-14] MEDS: KETOROLAC TROMETHAMINE 15 MG/ML VIAL IV PRN (19:32)
--- NOTE | 2020-07-14 23:13 | Hospitalist Progress Note ---
Date of Service July 14, 2020 Assessment & Plan (1) Diverticulitis: Sigmoid. Complicated by microperforation but no abscess. Clinically improved. Clears started by gen surg today. Cont IVF. Cont pain meds prn. Appreciate gen surg assistance. 2nd episode of sigmoid diverticulitis in 1 year. It does not appear that patient had f/u colonoscopy following his 06/2019 hospitalization for diverticulitis. Will need such after this episode. Will ultimately need dedicated fiber supplement as well. (2) Cerebral palsy: (3) Alcohol abuse: Continue gabapentin for alcohol withdrawal prophylaxis. Last drink was on Monday night of previous week. Thus far no symptoms of etoh withdrawal. Continue gabapentin per protocol. Ativan prn. Cont thiamine 200mg BID. Cont folate daily. Cont MVI. (4) Chewing tobacco nicotine dependence: Cessation encouraged, denies need for nicotine patch (5) Obesity, morbid, BMI 40.0-49.9: BMI 41.6 (6) DVT prophylaxis: heparin 7500 units TID Admission and Anticipated Discharge Date Admission Date: July 13, 2020 Subjective patient feeling MUCH better. pain improved - mild pain LLQ only. no nausea/emesis. having liquid stools. no fever. tolerating clears thus far. denies etoh withdrawal symptoms - no tremors, sweats, etc. he knows that he must stop drinking. Review of Systems Constitutional: no fever, no chills and no fatigue Respiratory: no dyspnea Cardiovascular: no chest pain Physical Exam Constitutional: + obese; no acute distress and no altered mental status ENMT: external ear and nose normal, oropharynx normal Respiratory: normal respiratory effort, lungs clear to auscultation Cardiovascular: RRR, no murmur, no edema Heart Sounds: normal S1 and normal S2 Vessels: posterior tibial pulses present and dorsalis pedis pulses present; no JVD Gastrointestinal (Abdomen): Inspection/Auscultation: + abdomen distended and normal bowel sounds Percussion/Palpation: + abdomen tender; no guarding and no hepatosplenomegaly Skin: no rashes, warm and dry Psychiatric: A+Ox3, euthymic affect Results & Data Results & Data ([facility]) Vital Signs (Past 12 Hours) Vital Signs Temp Pulse Pulse Resp BP BP Pulse Ox 07/14/20 19:00 37.2 C 94 H 18 146/89 H 97 07/14/20 15:43 36.4 C L 83 18 102/68 96 07/14/20 15:17 88 07/14/20 11:30 36.7 C 91 H 18 100/70 97 Laboratory Results Laboratory Results - last 24 hr 07/14/20 07/14/20 05:56 05:56 WBC 11.59 H RBC 4.34 L Hgb 14.1 Hct 41.5 L MCV 95.6 MCH 32.5 MCHC 34.0 RDW Std Deviation 43.1 RDW Coeff of Nancy 12.4 Plt Count 187 MPV 10.4 Sodium 135 L D Potassium 3.8 Chloride 105 Carbon Dioxide 25 Anion Gap 5.0 BUN 13 Creatinine 0.89 Est Cr Clr Drug Dosing 141.4 Est GFR ( Amer) 124.0 Est GFR (Non-Af Amer) 107.0 BUN/Creatinine Ratio 14.4 Glucose 86 Calcium 8.2 L Total Bilirubin 1.5 H AST 13 L ALT 25 Alkaline Phosphatase 96 Total Protein 6.7 Albumin 2.5 L Globulin 4.2 H Albumin/Globulin Ratio 0.6 L PG Care Time/CCT Total # of Minutes Spent Total Time Spent with Patient: Total time spent is greater than 50% in coordination of care (as documented) at patient's floor/unit and/or counseling patient: Coding Level of Care Code 74156 Subseq Hosp Care Lvl 2 Diagnoses Diverticulitis K57.92 Cerebral palsy G80.9 Cerebral palsy type: unspecified type Alcohol abuse F10.10 Chewing tobacco nicotine dependence F17.220 Obesity, morbid, BMI 40.0-49.9 E66.01 DVT prophylaxis Z29.9 (1) Cerebral palsy Cerebral palsy type: unspecified type Qualified Code(s): G80.9 - Cerebral palsy, unspecified
[2020-07-15] MEDS: PIPERACILLIN/TAZOBACTAM 4.5 GM in DEXTROSE 5% 100 ML IV SCH ×4 (00:03→23:05)
[2020-07-15] MEDS: NSS + 20MEQ KCL 20 MEQ/1,000 ML BAG IV SCH ×2 (02:46→15:40)
[2020-07-15] MEDS: ACETAMINOPHEN 1,000 MG/100 ML VIAL IV SCH ×3 (05:57→21:25)
[2020-07-15] MEDS: HEPARIN SOD 5,000 UNIT/0.5 ML VIAL SQ SCH ×3 (05:58→21:30)
[2020-07-15] MEDS: GABAPENTIN 400 MG CAP PO SCH ×2 (05:58→17:34)
[2020-07-15 06:52] LABS: BUN Creatinine Ratio 7.9 (10-20); Calcium 8.5 mg/dl (8.5-10.1); Creatinine Clr Calc Pharmacy 136.9 ml/min; Est GFR (African American) 120.2; Est GFR (Non-African American) 103.7; Magnesium 2.5 mg/dl (1.8-2.4); Potassium 3.8 mmol/L (3.5-5.1)
[2020-07-15] MEDS: THIAMINE HCL 200 MG in SODIUM CHLORIDE 0.9% 50 ML IV SCH ×2 (08:17→20:32)
[2020-07-15] MEDS: FOLIC ACID 1 MG in SYRINGE 9.8 ML IV SCH (08:18)
--- NOTE | 2020-07-15 08:39 | Surgery Progress Note ---
Date of Service July 15, 2020 Assessment & Plan (1) Diverticulitis large intestine: remains afebrile advance to full liquids cont Zosyn Admission and Anticipated Discharge Date Admission Date: July 13, 2020 Supervising Physician Co-Signing Physician Notes I personally saw and evaluated the patient with Pascual Diamond PA-C and agree with the assessment and plan. 40 yo male with acute diverticulitis with microperf -Continue Zosyn, if remains afebrile can switch to PO ABX tomorrow in AM -Advance to full liquid diet for dinner -If pain continues to improve and tolerates fulls, will advance in AM with possible d/c home tomorrow -Will need outpatient colonoscopy with GI after acute episode resolves -Will follow Subjective starting to move bowels, less pain, no fever Review of Systems Constitutional: as per Subjective / HPI; no fever and no chills Respiratory: no cough Gastrointestinal: + abdominal pain Genitourinary: no dysuria Integumentary: no rash Physical Exam Gastrointestinal (Abdomen): Percussion/Palpation: + abdomen tender (less LLQ than yesterday) and abdomen soft; no guarding Results & Data ([facility]) Vital Signs (Past 12 Hours) Vital Signs Temp Pulse Pulse Resp BP BP Pulse Ox 07/15/20 08:02 36.5 C 75 18 128/81 95 07/15/20 04:00 36.8 C 81 18 129/84 95 07/15/20 01:00 88 07/15/20 00:00 36.9 C 72 18 124/79 97 PG Care Time/CCT Total # of Minutes Spent Total Time Spent with Patient: Total time spent is greater than 50% in coordination of care (as documented) at patient's floor/unit and/or counseling patient: Coding Level of Care Code 46637 Subseq Hosp Care Lvl 1 Diagnoses Diverticulitis large intestine K57.32
--- NOTE | 2020-07-15 22:39 | Hospitalist Progress Note ---
Date of Service July 15, 2020 Assessment & Plan (1) Diverticulitis: Sigmoid. Complicated by microperforation but no abscess. Clinically improved. Diet advanced to full liquids by gen surg today. Cont IVF but lower rate to 50cc/hr. Repeat labs am. Cont pain meds prn. Appreciate gen surg assistance. 2nd episode of sigmoid diverticulitis in 1 year. It does not appear that patient had f/u colonoscopy following his 06/2019 hospitalization for diverticulitis. Will need such after this episode. Will ultimately need dedicated fiber supplement as well. (2) Cerebral palsy: - Hx of such, noted (3) Alcohol abuse: Continue gabapentin for alcohol withdrawal prophylaxis. Last drink was on Monday night of previous week. Thus far no symptoms of etoh withdrawal. Continue gabapentin per protocol. Ativan prn. Cont thiamine 200mg BID. Cont folate daily. Cont MVI. Thus far no significant etoh withdrawal. (4) Chewing tobacco nicotine dependence: Cessation encouraged, denies need for nicotine patch (5) Obesity, morbid, BMI 40.0-49.9: BMI 42 (6) DVT prophylaxis: heparin 7500 units TID hopefully can d/c home tomorrow Admission and Anticipated Discharge Date Admission Date: July 13, 2020 Anticipated date of discharge: 07/16/20 Subjective patient feeling well except for mild abd bloating/distension. he is moving his bowels and passing flatus. no nausea or emesis. no LLQ abd pain. no dyspnea. tele overnight wnl. Review of Systems Constitutional: no fever Respiratory: no cough and no dyspnea Cardiovascular: no chest pain Physical Exam Constitutional: + obese; no acute distress and no altered mental status ENMT: external ear and nose normal, oropharynx normal Respiratory: normal respiratory effort, lungs clear to auscultation Cardiovascular: RRR, no murmur, no edema Heart Sounds: normal S1 and normal S2 Vessels: posterior tibial pulses present and dorsalis pedis pulses present; no JVD Gastrointestinal (Abdomen): Inspection/Auscultation: + abdomen distended (modestly worse than yesterday) and normal bowel sounds Percussion/Palpation: + abdomen tender; no guarding and no hepatosplenomegaly Skin: no rashes, warm and dry Neurologic: Motor/Sensory: no tremor (no signs of etoh withdrawal ) Psychiatric: A+Ox3, euthymic affect Results & Data Results & Data ([facility]) Vital Signs (Past 12 Hours) Vital Signs Temp Pulse Pulse Resp BP BP Pulse Ox 07/15/20 19:55 37.2 C 84 18 154/96 H 96 07/15/20 16:00 68 07/15/20 15:46 36.8 C 79 18 120/81 100 07/15/20 11:34 36.6 C 78 20 147/97 H 97 Laboratory Results Laboratory Results - last 24 hr 07/15/20 05:59 Sodium 137 Potassium 3.8 Chloride 105 Carbon Dioxide 28 Anion Gap 4.0 BUN 7 D Creatinine 0.92 Est Cr Clr Drug Dosing 136.9 Est GFR ( Amer) 120.2 Est GFR (Non-Af Amer) 103.7 BUN/Creatinine Ratio 7.9 L Glucose 106 H Calcium 8.5 Magnesium 2.5 H PG Care Time/CCT Total # of Minutes Spent Total Time Spent with Patient: Total time spent is greater than 50% in coordination of care (as documented) at patient's floor/unit and/or counseling patient: Coding Level of Care Code 64982 Subseq Hosp Care Lvl 2 Diagnoses Diverticulitis K57.92 Cerebral palsy G80.9 Cerebral palsy type: unspecified type Alcohol abuse F10.10 Chewing tobacco nicotine dependence F17.220 Obesity, morbid, BMI 40.0-49.9 E66.01 DVT prophylaxis Z29.9 (1) Cerebral palsy Cerebral palsy type: unspecified type Qualified Code(s): G80.9 - Cerebral palsy, unspecified
[2020-07-16] MEDS: ACETAMINOPHEN 1,000 MG/100 ML VIAL IV SCH (05:12)
[2020-07-16] MEDS: GABAPENTIN 400 MG CAP PO SCH (05:21)
[2020-07-16] MEDS: HEPARIN SOD 5,000 UNIT/0.5 ML VIAL SQ SCH ×3 (05:21→20:40)
[2020-07-16] MEDS: THIAMINE HCL 200 MG in SODIUM CHLORIDE 0.9% 50 ML IV SCH ×2 (07:50→21:06)
[2020-07-16] MEDS: FOLIC ACID 1 MG in SYRINGE 9.8 ML IV SCH (07:53)
[2020-07-16] MEDS: NSS + 20MEQ KCL 20 MEQ/1,000 ML BAG IV SCH (07:59)
[2020-07-16] MEDS: PIPERACILLIN/TAZOBACTAM 4.5 GM in DEXTROSE 5% 100 ML IV SCH ×2 (08:05→15:10)
[2020-07-16 08:49] LABS: Basophils # (auto) 0.02 K/uL (0-0.2); Basophils % (auto) 0.3 %; Eosinophils # (auto) 0.31 K/uL (0-0.5); Eosinophils % (auto) 5.3 %; Hematocrit (blood only) 39.2 % (42-52); Hemoglobin 12.9 g/dL (14.0-18.0); Immature Granulocytes # (auto) 0.01 K/uL (0.00-0.02); Immature Granulocytes % (auto) 0.2 %; Lymphocytes # (auto) 1.85 K/uL (1.2-3.4); Lymphocytes % (auto) 31.6 %; Mean Corpuscular Hemoglobin 31.6 pg (25-34); Mean Corpuscular Hgb Conc 32.9 g/dL (32-36); Mean Corpuscular Volume 96.1 fL (80-100); Mean Platelet Volume 10.3 fL (7.4-10.4); Monocytes # (auto) 0.65 K/uL (0.11-0.59); Monocytes % (auto) 11.1 %; Neutrophils # (auto) 3.01 K/uL (1.4-6.5); Neutrophils % (auto) 51.5 %; Platelet Count 261 K/uL (130-400); RDW Coefficient of Variation 12.4 % (11.5-14.5); RDW Standard Deviation 43.4 fL (36.4-46.3); Red Blood Count 4.08 M/uL (4.7-6.1); White Blood Count 5.85 K/uL (4.8-10.8)
[2020-07-16 09:13] LABS: BUN Creatinine Ratio 4.4 (10-20); Calcium 8.2 mg/dl (8.5-10.1); Est GFR (African American) 117.1; Potassium 4.2 mmol/L (3.5-5.1)
--- NOTE | 2020-07-16 10:14 | Surgery Progress Note ---
Date of Service July 16, 2020 Assessment & Plan (1) Diverticulitis large intestine: WBC normal, afebrile IV to po abx in next 24 hours advance to low fiber as juan he wants to schedule outpatient colonoscopy now--and has been noncompliant in the past Admission and Anticipated Discharge Date Admission Date: July 13, 2020 Supervising Physician Co-Signing Physician Notes I personally saw and evaluated the patient with Pascual Diamond PA-C and agree with the assessment and plan. -40 yo male with acute diverticulitis with microperforation, improving -Would suggest converting IV ABX to PO today -Increase to low fiber diet for dinner -If tolerates diet and remains afebrile, likely can d/c home tomorrow -Will need outpatient colonoscopy Subjective minimal pain, bowels moving, tolerating full liquids but appetite less than usual Review of Systems Constitutional: as per Subjective / HPI; no fever and no chills Gastrointestinal: + abdominal pain Physical Exam Constitutional: WD/WN, vitals as above Eyes: PERRL, conjunctivae normal, anicteric sclerae ENMT: external ear and nose normal, oropharynx normal Neck: trachea midline, no thyromegaly Respiratory: normal respiratory effort, lungs clear to auscultation normal respiratory effort Cardiovascular: RRR, no murmur, no edema Rate/Rhythm: regular rhythm and + tachycardic Gastrointestinal (Abdomen): Inspection/Auscultation: abdomen not distended Percussion/Palpation: + abdomen tender (less LLQ than yesterday) and abdomen soft; no guarding Skin: no rashes, warm and dry Psychiatric: A+Ox3, euthymic affect Lymphatic: no inguinal lymphadenopathy Results & Data ([facility]) Vital Signs (Past 12 Hours) Vital Signs Temp Pulse Pulse Resp BP BP Pulse Ox 07/16/20 08:07 36.4 C L 64 18 147/98 H 98 07/16/20 04:24 37.1 C 66 20 148/94 H 96 07/16/20 02:08 73 07/15/20 23:57 73 07/15/20 23:26 37.0 C 71 18 145/95 H 97 PG Care Time/CCT Total # of Minutes Spent Total Time Spent with Patient: Total time spent is greater than 50% in coordination of care (as documented) at patient's floor/unit and/or counseling patient: Coding Level of Care Code 35016 Subseq Hosp Care Lvl 2 Diagnoses Diverticulitis large intestine K57.32
--- NOTE | 2020-07-16 15:18 | Hospitalist Progress Note ---
Date of Service July 16, 2020 Assessment & Plan (1) Diverticulitis: Sigmoid. Complicated by microperforation but no abscess. Clinically improved/resolving. Diet advanced to low fiber diet by gen surg today. STOP IV fluids. STOP IV zosyn; change to PO augmentin BID. Appreciate gen surg assistance. 2nd episode of sigmoid diverticulitis in 1 year. It does not appear that patient had f/u colonoscopy following his 06/2019 hospitalization for diverticulitis. Will need such after this episode. Will ultimately need dedicated fiber supplement as well. (2) Cerebral palsy: - Hx of such, noted (3) Alcohol abuse: Continue gabapentin for alcohol withdrawal prophylaxis. Last drink was on Monday night of previous week. Continues to have no symptoms of etoh withdrawal. Continue gabapentin per protocol. Ativan prn. Cont thiamine 200mg BID. Cont folate daily. Cont MVI. social work discussed inpatient and outpatient drug/etoh rehab - patient declined all treatment modalities. will speak with him tomorrow about this. (4) Chewing tobacco nicotine dependence: Cessation encouraged, denies need for nicotine patch (5) Obesity, morbid, BMI 40.0-49.9: BMI 42 (6) DVT prophylaxis: heparin 7500 units TID hopefully can d/c home tomorrow am updated pt's sister this evening; questions answered Admission and Anticipated Discharge Date Admission Date: July 13, 2020 Subjective patient feeling well. thus far tolerating low fiber diet. it is not causing additional pain. bloating resolved. passing stool/flatus. tele overnight wnl. Review of Systems Constitutional: no fever, no fatigue and no anorexia Respiratory: no dyspnea Cardiovascular: no chest pain Gastrointestinal: no abdominal pain, no bloating, no nausea and no vomiting Physical Exam Constitutional: + obese; no acute distress and no altered mental status ENMT: external ear and nose normal, oropharynx normal Respiratory: normal respiratory effort, lungs clear to auscultation Cardiovascular: RRR, no murmur, no edema Heart Sounds: normal S1 and normal S2 Vessels: posterior tibial pulses present and dorsalis pedis pulses present; no JVD Gastrointestinal (Abdomen): Inspection/Auscultation: normal bowel sounds; abdomen not distended Percussion/Palpation: abdomen soft; abdomen nontender, no guarding and no hepatosplenomegaly Skin: no rashes, warm and dry Psychiatric: A+Ox3, euthymic affect Results & Data Results & Data ([facility]) Vital Signs (Past 12 Hours) Vital Signs Temp Pulse Pulse Resp BP BP Pulse Ox 07/16/20 12:17 80 150/100 H 07/16/20 11:31 36.4 C L 74 20 150/100 H 98 07/16/20 09:00 62 07/16/20 08:07 36.4 C L 64 18 147/98 H 98 07/16/20 04:24 37.1 C 66 20 148/94 H 96 Laboratory Results Laboratory Results - last 24 hr 07/16/20 07/16/20 08:00 08:00 WBC 5.85 RBC 4.08 L Hgb 12.9 L Hct 39.2 L MCV 96.1 MCH 31.6 MCHC 32.9 RDW Std Deviation 43.4 RDW Coeff of Nancy 12.4 Plt Count 261 MPV 10.3 Immature Gran % (Auto) 0.2 Neut % (Auto) 51.5 Lymph % (Auto) 31.6 [place] % (Auto) 11.1 Eos % (Auto) 5.3 Baso % (Auto) 0.3 Neut # (Auto) 3.01 Lymph # (Auto) 1.85 [place] # (Auto) 0.65 H Eos # (Auto) 0.31 Baso # (Auto) 0.02 Immature Gran # (Auto) 0.01 Sodium 140 Potassium 4.2 Chloride 109 H Carbon Dioxide 30 Anion Gap 1.0 L BUN 4 L Creatinine 0.94 Est Cr Clr Drug Dosing 135.0 Est GFR ( Amer) 117.1 Est GFR (Non-Af Amer) 101.0 BUN/Creatinine Ratio 4.4 L Glucose 97 Calcium 8.2 L PG Care Time/CCT Total # of Minutes Spent Total Time Spent with Patient: Total time spent is greater than 50% in coordination of care (as documented) at patient's floor/unit and/or counseling patient: Coding Level of Care Code 67441 Subseq Hosp Care Lvl 2 Diagnoses Diverticulitis K57.92 Cerebral palsy G80.9 Cerebral palsy type: unspecified type Alcohol abuse F10.10 Chewing tobacco nicotine dependence F17.220 Obesity, morbid, BMI 40.0-49.9 E66.01 DVT prophylaxis Z29.9 (1) Cerebral palsy Cerebral palsy type: unspecified type Qualified Code(s): G80.9 - Cerebral palsy, unspecified
[2020-07-16] MEDS: AMOXICILLIN/CLAVULANATE 875 MG TAB PO SCH (17:20)
[2020-07-16] MEDS: KETOROLAC TROMETHAMINE 15 MG/ML VIAL IV PRN (21:06)
[2020-07-17] MEDS: HEPARIN SOD 5,000 UNIT/0.5 ML VIAL SQ SCH (04:38)
[2020-07-17] MEDS ORDERED: GABAPENTIN 400 MG CAP PO SCH (06:00)
[2020-07-17] MEDS: AMOXICILLIN/CLAVULANATE 875 MG TAB PO SCH (07:53)
[2020-07-17] MEDS: THIAMINE HCL 200 MG in SODIUM CHLORIDE 0.9% 50 ML IV SCH (07:53)
[2020-07-17] MEDS: FOLIC ACID 1 MG in SYRINGE 9.8 ML IV SCH (07:54)
--- NOTE | 2020-07-17 09:11 | Surgery Progress Note ---
Date of Service July 17, 2020 Assessment & Plan (1) Diverticulitis large intestine: -Continue low fiber diet for next 2 weeks -Will need 2 weeks of Augmentin after discharge -Follow up with GI as outpatient to set up colonoscopy -Ok to discharge home today from surgical standpoint Present on Admission?: Yes Admission and Anticipated Discharge Date Admission Date: July 13, 2020 Subjective Pt seen and examined. Afebrile. Tolerating diet without N/V. +Flatus. Pain improving. Physical Exam Constitutional: WD/WN, vitals as above ENMT: external ear and nose normal, oropharynx normal Respiratory: normal respiratory effort Cardiovascular: RRR, no murmur, no edema Gastrointestinal (Abdomen): Percussion/Palpation: abdomen soft; abdomen nontender, no guarding and abdomen not rigid Skin: no rashes, warm and dry Psychiatric: A+Ox3, euthymic affect Results & Data ([facility]) Vital Signs (Past 12 Hours) Vital Signs Temp Pulse Resp BP Pulse Ox 07/17/20 08:03 36.7 C 66 18 141/85 H 97 07/16/20 23:27 36.7 C 70 20 148/94 H 98 PG Care Time/CCT Total # of Minutes Spent Total Time Spent with Patient: Total time spent is greater than 50% in coordination of care (as documented) at patient's floor/unit and/or counseling patient: Coding Level of Care Code 50641 Subseq Hosp Care Lvl 1 Diagnoses Diverticulitis large intestine K57.32 Diverticulitis bleeding: without bleeding (1) Diverticulitis large intestine Diverticulitis bleeding: without bleeding
--- NOTE | 2020-07-17 11:50 | Discharge Summary ---
Date of Service date of admission - July 13, 2020 date of discharge - July 17, 2020 Admission HPI Per Admitting Provider This is a 40-year-old male with PMHx of cerebral palsy, alcohol use, and diverticulitis in 06/2019 requiring hospitalization who presents with acute abdominal pain which started on Monday night. Found to have diverticulitis with microperforation on CT today. He was admitted approximately 1 year ago for similar presentation and had a small abscess at that point in time. He currently does not have any abscess shown on CT imaging. He reports his pain is significant and located in the LLQ, exacerbated with moving and sitting forward, nothing specifically has improved it other than pain medication given here. Patient has not had anything to eat since Monday night, where he had pizza for dinner. Has been able to tolerate fluids without difficulty. He had bloody bowel movements multiple times on Monday morning, denies any bowel movements in the last 1 day, urinating without any difficulty. He drinks alcohol approximately 12 beers per day routinely, denies any history of withdrawal, shakiness, seizure in the past. He reports "I need to quit", but reports that he also chews snuff and wants to stop doing this as well. He denies any need for nicotine patch. Pt's father lives at home with him. Principal Diagnosis sigmoid diverticulitis with microperforation Discharge Exam Constitutional + obese; no acute distress and no altered mental status ENMT external ear and nose normal, oropharynx normal Respiratory normal respiratory effort, lungs clear to auscultation Cardiovascular RRR, no murmur, no edema Heart Sounds: normal S1 and normal S2 Vessels: posterior tibial pulses present and dorsalis pedis pulses present; no JVD Gastrointestinal (Abdomen) Inspection/Auscultation: normal bowel sounds; abdomen not distended Percussion/Palpation: abdomen soft; abdomen nontender, no guarding and no hepatosplenomegaly Skin no rashes, warm and dry Neurologic Motor/Sensory: no tremor (no signs of etoh withdrawal ) Psychiatric A+Ox3, euthymic affect Discharge Data Allergies Allergy/AdvReac Type Severity Reaction Status Date / Time No Known Drug Allergies Allergy Unknown NONE Verified 07/13/20 14:04 Consultations General Surgery Ordered Studies 07/13/20 12:53 CT abd pelvis IV con only Stat IMPRESSION: 1. CT findings indicative of acute sigmoid diverticulitis with a microperforation, and extraluminal gas. There is infiltration of the surrounding fat, there is a small amount of fluid within the left paracolic gutter 2. No evidence of bowel obstruction. No evidence of free air 3. Punctate bilateral nonobstructing renal calculi 4. Hepatic steatosis Hospital Course (1) Diverticulitis: Sigmoid. Complicated by microperforation but no abscess. Clinically improved/resolved with bowel rest, IV fluids, IV antibiotics, and time. General surgery was consulted who provided little recommendations for his care. Nonoperative approach employed while here. Abdominal symptoms resolved with conservative measures. Diet ultimately advanced to low fiber and he tolerated this. Passing flatus/stool pre-discharge. Initial antibiotic was IV zosyn; later changed to PO augmentin BID x 2 weeks upon discharge. This was patient's 2nd episode of sigmoid diverticulitis in 1 year. Patient never had f/u colonoscopy following his 06/2019 hospitalization for diverticulitis. Patient knows he needs to schedule colonoscopy in 6-8 weeks post-recovery from this episode. (2) Alcohol abuse: 12+ beers/day chronically. Treated with gabapentin for alcohol withdrawal prophylaxis. Did not show significant alcohol withdrawal symptoms while hospitalized. Cont thiamine 200mg BID x 30 days. Cont folate daily x 30 days. Social work discussed inpatient and outpatient drug/etoh rehab - patient declined all treatment modalities. (3) Chewing tobacco nicotine dependence: Cessation encouraged. (4) Obesity, morbid, BMI 40.0-49.9: BMI 42 (5) Kidney stones: Seen incidentally on CT abd/pelvis. No symptoms. (6) Fatty liver: Likely 2nd to chronic alcohol abuse. Patient aware of this finding. (7) Cerebral palsy: Total Time Total Time Spent Total Time Spent (In Minutes): 35 Total Time Includes: Examination of the Patient, Discharge Planning, Medication Reconciliation and Communication With Other Providers Discharge Plan Discharge Items Patient Disposition: Home - Self-Care Reason For Visit: DIVERTICULITIS Discharge Diagnosis: 1. diverticulitis of sigmoid colon with microperforation - improved 2. alcohol abuse Condition on Discharge: Good Activity: As commented below Activity Comment: gradually increase your activities over the next 5 days Non-emergency contact: Primary Care Provider and [employer] Major Call non-emergency contact if: you have any medication questions, your symptoms worsen, your pain is not controlled, your pain is worsening and you have a fever Follow-up/Referrals: Ebenezer White, DO [Physician] - (please schedule colonoscopy with Dr White in 6-8 weeks ) PCP,NO [Primary Care Provider] - 07/21/20 9:40 am (You have been scheduled for a "new acute established appointment" at [facility] to establish a PCP for your care. Your appointment is scheduled with Raul Ralph PA-C. If you cannot keep this appointment, please phone the [place] office to cancel or reschedule.) Diet: Low Fiber Addtl Attending Provider Instructions: You were treated for sigmoid diverticulitis with IV antibiotics, fluids, pain meds, and time. Your symptoms improved over the course of your stay. You were seen by the surgeons and no surgery was advised since you were getting better. A colonoscopy will be needed in 6-[address] White as an outpatient. You had evidence of a small amount of microperforation - that is, small amounts of air seeped out of the colon where the colon was sick. Again you improved with antibiotics and time. Recommendations: 1. low fiber diet for 2 weeks. see handout on "low fiber." 2. antibiotics for 2 weeks. amoxicillin-clavulanate 875mg twice daily. start this TONIGHT. this antibiotic often causes diarrhea. 3. probiotics once daily for 2 weeks to help prevent diarrhea. 4. thiamine supplement twice daily for 30 days. 5. folic acid supplement once daily for 30 days. 6. please abstain from alcohol if at all possible. I would encourage you to seek help though a counselor, Alcoholic Anonymous, group sessions, etc. The social sciences department chair gave you a list of options to help with this. Your new family doctor can also assist you in getting help. Your diverticulitis, fatty liver, and overall health depend on you maintaining sobriety. Please reach out for help when you are ready. Follow-up: 1. new primary care doctor/provider within 1 week at [facility] office. 2. Dr Ebenezer White - [facility] - colonoscopy in 6-8 weeks. If you do not hear from his office by middle of next week please contact his office to arrange this. This is very important. Return to [facility] if: * you have worsening abdominal pain * you have severe diarrhea * you have fever over 100 degrees * you have vomiting and can't keep anything down * any other concerns Pending Studies at Discharge: No Stand-Alone Forms: My [facility] [address], Work/School Release (Inpt), Smoking Cessation Medications and DC Order Prescriptions: New amoxicillin-pot clavulanate [Augmentin] 875-125 mg Tablet 1 tab PO BIDM 14 Days Qty: 28 RF: 0 thiamine HCl (vitamin B1) 100 mg tablet 200 mg PO BID 30 Days Qty: 120 RF: 0 Saccharomyces boulardii 250 mg capsule 250 mg PO DAILY 14 Days Qty: 14 RF: 0 folic acid 1 mg tablet 1 mg PO DAILY 30 Days Qty: 30 RF: 0 No Action No Known Home Medications RF: 0 Discharge Orders: Discharge Order (Routine); Ordered 07/17/20 Ordered By: Regan Choi/Other Patient Handouts: Low-Fiber Diet, ED Diverticulitis Admission Data Admit Date/Time: 07/13/20 15:54 Attending Provider: Regan Barton Admit Provider: Satya Miller Primary Care Provider: PCP,NO Other Providers: Satya Miller ; Cali Frank Other Interventions: Discharge Summary Assessment (RN) Last Done: 07/17/20 11:45 Coding Level of Care Code D/C Day Management >30 mins Diagnoses Diverticulitis K57.92 Alcohol abuse F10.10 Chewing tobacco nicotine dependence F17.220 Obesity, morbid, BMI 40.0-49.9 E66.01 Kidney stones N20.0 Fatty liver K76.0 Cerebral palsy G80.9 Cerebral palsy type: unspecified type
== END 2020-07-17 13:54 | disposition home or self-care (01) | DRG 378 ==
LOC: ED 12:26 → 2N 15:54 → SUATTDRO 15:54 → 2N 17:20

== ENCOUNTER 2020-08-28 13:39 | Inpatient (IN) ==
[2020-08-28] MEDS ORDERED: PIPERACILLIN/TAZOBACTAM 4.5 GM/120 ML BAG IV ONE (16:55)
[2020-08-28] MEDS ORDERED: PIPERACILL/TAZOBAC CONSULT ACTIVE PRN ×2 (16:55→21:31)
[2020-08-28] MEDS ORDERED: SODIUM CHLORIDE 0.9% 1000ML 1,000 ML IV SCH (17:00)
--- NOTE | 2020-08-28 17:04 | Emergency Department Note ---
History of Present Illness General Chief complaint: GI Assessment Stated complaint: DIVERTICULITIS Time Seen by Provider: 08/28/20 16:51 Source: patient Mode of arrival: ambulatory Limitations: no limitations History of Present Illness Provider complaint: Left lower quadrant abdominal pain Maximum Pain Intensity: 8 This is a 40-year-old male who presents to the ED with a chief complaint of left lower quadrant abdominal pain. The patient states that he has a history of diverticulitis in the past. He was seen here for diverticulitis with microperforation previously. The patient reports left lower quadrant abdominal pain and burning sensation that feels similar to his diverticulitis in the past that started about 2 days ago. He states that he is really not eaten or drank much for the past 36 hours because that increases his discomfort. Denies any diarrhea, nausea or vomiting. Denies any fevers. His pain is worse with walking. Home Medications Medication Instructions Recorded Confirmed Type No Known Home Medications 07/13/20 08/28/20 History Allergies Allergy/AdvReac Type Severity Reaction Status Date / Time No Known Allergies Allergy Verified 08/28/20 17:21 Past Med/Surg History Medical History (Updated 08/28/20 @ 19:21 by Manuel Brown DO) Abscess of sigmoid colon due to diverticulitis Alcoholism /alcohol abuse Cerebral palsy Diverticulitis Social History Smoking Status: Current some day smoker Tobacco Type: Cigarettes Cigarettes Per Day: occasional smoker; Second Hand Exposure: Yes; Hx Alcohol Use: Yes Alcohol type: beer Hx Substance Use: No Preferred Language: Cymraes Communication Ability: Effective Field Research Assistant Required: No Beliefs That Will Affect Care: None marital status: Single Current Living Situation: Family Current Living Situation Comment: Father lives with patient Feels Safe at Home: Yes Assistive Devices: None Review of Systems A total of 10 systems reviewed and were otherwise negative Physical Exam Vital Signs Vital Signs - 24 hr 08/28/20 13:58 08/28/20 16:47 08/28/20 17:50 Temperature 37.0 C Temperature Source Skin Pulse Rate 102 H Pulse Rate [Left Finger] 113 H Respiratory Rate 20 20 Respiratory Effort / Characteristics Non-Labored Respiratory Depth Normal Blood Pressure 146/97 H Blood Pressure [Left Arm] 149/104 H Blood Pressure Mean 113 Blood Pressure Mean [Left Arm] 119 Pulse Oximetry 96 96 95 Oxygen Delivery Method Room Air Room Air Room Air Sepsis Recent Fever Within 48 Hours No Sepsis New/Unexplained Change in Mental Status N/A Sepsis Action Taken by Nursing No Action Required 08/28/20 17:53 Temperature Temperature Source Pulse Rate Pulse Rate [Left Finger] 96 H Respiratory Rate 20 Respiratory Effort / Characteristics Respiratory Depth Blood Pressure Blood Pressure [Left Arm] 148/107 H Blood Pressure Mean Blood Pressure Mean [Left Arm] 120 Pulse Oximetry 96 Oxygen Delivery Method Room Air Sepsis Recent Fever Within 48 Hours Sepsis New/Unexplained Change in Mental Status Sepsis Action Taken by Nursing CONSTITUTIONAL/VITAL SIGNS: Reviewed / noted above. GENERAL: Non-toxic in appearance. INTEGUMENTARY: Warm, dry, and [place]. HEAD: Normocephalic. EYES: without scleral icterus or trauma. ENT/OROPHARYNX: clear and moist. LYMPHADENOPATHY/NECK: Is supple without lymphadenopathy or meningismus. RESPIRATORY: Lungs clear and equal. CARDIOVASCULAR: Regular rate and rhythm. GI/ABDOMEN: Soft and tender in the left lower quadrant. No organomegaly or pulsatile mass. No rebound or guarding. Normal bowel sounds. EXTREMITIES: Warm and well perfused. BACK: No CVA tenderness. NEUROLOGICAL: Intact without focal deficits. PSYCHIATRIC: normal affect. MUSCULOSKELETAL: Normally developed with good muscle tone. TRIAGE NURSING DOCUMENTATION REVIEWED. Course Administered Medications Discontinued Medications Sodium Chloride (Nss 1000ml) 1,000 mls @ 999 mls/hr IV .Q1H1M BREEZY Stop: 08/28/20 18:00 Last Admin: 08/28/20 17:50 Dose: 999 mls/hr Documented by: [id number] Piperacillin Sod/Tazobactam Sod (Zosyn) 4.5 gm in 120 mls @ 240 mls/hr IV NOW ONE Stop: 08/28/20 17:24 Last Infusion: 08/28/20 18:20 Dose: 0 mls/hr Documented by: [id number] Admin: 08/28/20 17:50 Dose: 240 mls/hr Documented by: [id number] Ioversol (Ioversol 100ml) 91 ml IV ONCE ONE Stop: 08/28/20 18:27 Last Admin: 08/28/20 18:26 Dose: 91 ml Documented by: [id number] Medical Decision Making Differential Diagnosis Differential considered: pancreatitis, hepatitis, acute cholecystitis, AAA, UTI, pyelonephritis, kidney stones, appendicitis, diverticulitis, shingles, bowel obstruction, mesenteric ischemia, intussusception,hernia, testicular tor vernon. Medical Records Attestation: I reviewed the patient's medical records. Home Medications Current Medication List: was personally reviewed by me Laboratory Data Attestation: I reviewed the patient's lab results. Result diagrams: 08/28/20 17:37 08/28/20 17:37 Lab Results 08/28/20 08/28/20 08/28/20 Range/Units 17:37 17:37 17:37 WBC 9.37 (4.8-10.8) K/uL RBC 4.82 (4.7-6.1) M/uL Hgb 15.9 (14.0-18.0) g/dL Hct 45.2 (42-52) % MCV 93.8 (80-100) fL MCH 33.0 (25-34) pg MCHC 35.2 (32-36) g/dL RDW Std Deviation 43.9 (36.4-46.3) fL RDW Coeff of Nancy 12.8 (11.5-14.5) % Plt Count 243 (130-400) K/uL MPV 10.4 (7.4-10.4) fL Immature Gran % (Auto) 0.2 % Neut % (Auto) 66.9 % Lymph % (Auto) 22.9 % [place] % (Auto) 7.9 % Eos % (Auto) 1.9 % Baso % (Auto) 0.2 % Neut # (Auto) 6.26 (1.4-6.5) K/uL Lymph # (Auto) 2.15 (1.2-3.4) K/uL [place] # (Auto) 0.74 H (0.11-0.59) K/uL Eos # (Auto) 0.18 (0-0.5) K/uL Baso # (Auto) 0.02 (0-0.2) K/uL Immature Gran # (Auto) 0.02 (0.00-0.02) K/uL Sodium 138 (136-145) mmol/L Potassium 3.8 (3.5-5.1) mmol/L Chloride 106 (98-107) mmol/L Carbon Dioxide 22 (21-32) mmol/L Anion Gap 11.0 (3-11) BUN 12 (7-18) mg/dl Creatinine 0.90 (0.6-1.4) mg/dl Est Cr Clr Drug Dosing 134.8 ml/min Est GFR ( Amer) 123.4 Est GFR (Non-Af Amer) 106.5 BUN/Creatinine Ratio 13.8 (10-20) Glucose 92 (70-99) mg/dl Calcium 8.8 (8.5-10.1) mg/dl Total Bilirubin 0.8 (0.2-1) mg/dl AST 25 (15-37) U/L ALT 44 (12-78) U/L Alkaline Phosphatase 116 (45-117) U/L Total Protein 7.8 (6.4-8.2) gm/dl Albumin 3.2 L (3.4-5.0) gm/dl Globulin 4.6 H (2.5-4.0) gm/dl Albumin/Globulin Ratio 0.7 L (0.9-2) Lipase 77 (73-393) U/L Urine Color [place] Urine Appearance Clear (Clear) Urine pH 5.0 (4.5-7.5) Ur Specific [place] 1.032 H (1.000-1.030) Urine Protein Trace H (Negative) Urine Glucose (UA) Negative (Negative) Urine Ketones 2+ H (Negative) Urine Blood 2+ H (Negative) Urine Nitrite Positive A (Negative) Urine Bilirubin Negative (Negative) Urine Urobilinogen Negative (Negative) Ur Leukocyte Esterase Trace H (Negative) Urine WBC (Auto) 1-5 (0-5) /hpf Urine RBC (Auto) 0-4 (0-4) /hpf U Hyaline Cast (Auto) 1-5 (0-5) /lpf U Epithel Cells (Auto) 5-10 H (0-5) /lpf Urine Bacteria (Auto) Negative (Negative) Imaging Data Radiologist's Impression: CT scan of the abdomen and pelvis: IMPRESSION: 1. Redemonstration of the diverticulitis involving the distal descending colon/proximal sigmoid colon. The inflammatory change and bowel wall thickening has improved. The extraluminal gas has also improved in the interval consistent with microperforation. There is a small phlegmon/abscess seen within the left lower quadrant abutting the left lower quadrant abdominal wall and inflamed sigmoid colon. This could represent a developing fistula. This currently measures 2.5 cm, previously measuring 4.9 cm. Again, recommend follow-up colonoscopy once the diverticulitis has resolved to exclude the less likely possibility of an underlying colonic lesion. 2. Normal appendix. 3. No evidence for bowel obstruction. 4. Hepatic steatosis. MDM Narrative The patient presents with 2 days of left lower quadrant pain and has tenderness on exam in the left lower quadrant. Vital signs reveal tachycardia and hypertension. CBC and chemistry panel was unremarkable. The CT scan shows findings of diverticulitis with a small phlegmon/abscess in the left lower quadrant. The patient was given IV Zosyn. He was given some IV fluids. He will be seen by the hospitalist for further evaluation and care. Impression & Plan Diverticulitis Discharge Plan Visit Data Chief Complaint: GI Assessment Stated Complaint: DIVERTICULITIS ED Provider: Manuel Brown Discharge Problem: Diverticulitis Patient Disposition: Being Evaluated by Hospitalist Forms Stand Alone Forms: Skip Hop Prescriptions Prescriptions: No Action No Known Home Medications RF: 0 Referrals Referrals: PCP,NO [Primary Care Provider] -
[2020-08-28 17:51] LABS: Basophils # (auto) 0.02 K/uL (0-0.2); Basophils % (auto) 0.2 %; Eosinophils # (auto) 0.18 K/uL (0-0.5); Eosinophils % (auto) 1.9 %; Hematocrit (blood only) 45.2 % (42-52); Hemoglobin 15.9 g/dL (14.0-18.0); Immature Granulocytes # (auto) 0.02 K/uL (0.00-0.02); Immature Granulocytes % (auto) 0.2 %; Lymphocytes # (auto) 2.15 K/uL (1.2-3.4); Lymphocytes % (auto) 22.9 %; Mean Corpuscular Hgb Conc 35.2 g/dL (32-36); Mean Corpuscular Volume 93.8 fL (80-100); Mean Platelet Volume 10.4 fL (7.4-10.4); Monocytes # (auto) 0.74 K/uL (0.11-0.59); Monocytes % (auto) 7.9 %; Neutrophils # (auto) 6.26 K/uL (1.4-6.5); Neutrophils % (auto) 66.9 %; Platelet Count 243 K/uL (130-400); RDW Coefficient of Variation 12.8 % (11.5-14.5); RDW Standard Deviation 43.9 fL (36.4-46.3); Red Blood Count 4.82 M/uL (4.7-6.1); White Blood Count 9.37 K/uL (4.8-10.8)
[2020-08-28 17:58] LABS: Appearance Urine Clear (Clear); Bacteria Urine Automated Negative (Negative); Blood Urine 2+ (Negative); Color Urine Orange; Glucose Urine UA Negative (Negative); Ketones Urine 2+ (Negative); Leukocyte Esterase Urine Trace (Negative); Nitrite Urine Positive (Negative); Protein Urine Trace (Negative); RBC Urine Automated 0-4 /hpf (0-4); Specific Gravity Urine 1.032 (1.000-1.030); Urobilinogen Urine Negative (Negative)
[2020-08-28 18:06] LABS: Bilirubin Urine Negative (Negative); Ictotest Urine Negative (Negative)
[2020-08-28 18:11] LABS: Albumin Level 3.2 gm/dl (3.4-5.0); BUN Creatinine Ratio 13.8 (10-20); Calcium 8.8 mg/dl (8.5-10.1); Creatinine Clr Calc Pharmacy 134.8 ml/min; Est GFR (African American) 123.4; Est GFR (Non-African American) 106.5; Potassium 3.8 mmol/L (3.5-5.1)
[2020-08-28 18:14] LABS: Albumin Globulin Ratio 0.7 (0.9-2); Bilirubin,Total 0.8 mg/dl (0.2-1); Globulin 4.6 gm/dl (2.5-4.0); Total Protein 7.8 gm/dl (6.4-8.2)
[2020-08-28] MEDS ORDERED: IOVERSOL 100ml IV ONE (18:26)
--- NOTE | 2020-08-28 18:49 | CT Scan Report ---
ABDOMEN AND PELVIS CT WITH IV CONTRAST CT DOSE: 1445.64 mGy.cm HISTORY: Left lower quadrant abdominal pain. History of diverticulitis. TECHNIQUE: Multiaxial CT images of the abdomen and pelvis were performed following the use of intrave nous contrast. A dose lowering technique was utilized adhering to the principles of ALARA. COMPARISON STUDY: Abdomen and pelvis CT 07/13/2020. FINDINGS: The lung bases are clear. No fractures within the visualized osseous structures. Hepatic st eatosis. The main portal vein is patent. The gallbladder, pancreas, spleen, and adrenal glands are un remarkable. The kidneys enhance normally. No hydronephrosis. No retroperitoneal lymphadenopathy. The bladder is unremarkable. No evidence for bowel obstruction. Normal appendix. Interval improvement in the pericolonic fat stranding and bowel wall thickening involving the distal descending colon and pro ximal sigmoid colon. This is consistent with an acute diverticulitis. Small amount of extraluminal pe ricolonic gas has improved consistent with a microperforation. There is a small phlegmon/abscess seen within the left lower quadrant abutting the left lower quadrant abdominal wall. This could represent a developing fistula. This currently measures 2.5 cm, previously measuring 4.9 cm. IMPRESSION: 1. Redemonstration of the diverticulitis involving the distal descending colon/proximal sigmoid colon . The inflammatory change and bowel wall thickening has improved. The extraluminal gas has also impro ritu in the interval consistent with microperforation. There is a small phlegmon/abscess seen within t he left lower quadrant abutting the left lower quadrant abdominal wall and inflamed sigmoid colon. Th is could represent a developing fistula. This currently measures 2.5 cm, previously measuring 4.9 cm. Again, recommend follow-up colonoscopy once the diverticulitis has resolved to exclude the less like ly possibility of an underlying colonic lesion. 2. Normal appendix. 3. No evidence for bowel obstruction. 4. Hepatic steatosis. ACT 112: Negative or not required by law. Electronically signed by: Aristeo Corbin M.D. 08/28/2020 6:47 PM
[2020-08-28] MEDS ORDERED: MoRPHine SULFATE 2 MG/ML CARP IV STA (19:22)
--- NOTE | 2020-08-28 19:51 | History & Physical Report ---
Date of Service August 28, 2020 Assessment & Plan (1) Diverticular disease of intestine with perforation and abscess: Sigmoid diverticulitis with perforation and abscess/phlegmon- NPO except for ice chips and sips Zosyn 4.5 g IV every 8 hours Zofran 4 mg IV every 6 hours as needed NSS + KCl 20 mEq 100 mils per hour Famotidine 20 mg IV every 12 hours Acetaminophen 650 mg p.o. every 6 hours as needed pain or fever Morphine sulfate 2 mg IV every 4 hours as needed severe pain Consult general surgery Dr. Patel Present on Admission?: Yes (2) Alcohol abuse: Patient reports drinking a few drinks yesterday, and denies any other recent intake. Due to his history, if there is a suggestion of appropriate symptoms, may need to consider alcohol withdrawal and treatment if needed. Lorazepam 1 mg IV every 4 hours as needed anxiety or agitation Present on Admission?: Yes History of Present Illness Chief Complaint: The patient presents to the ED with worsening LLQ abdominal pain and burning over the past 24 hours since eating hot sausage Primary Care Provider: NO PCP The patient is a 40 yo male with a PMH of alcohol abuse, fatty liver, kidney stones, diverticulitis, morbid obesity, chewing tobacco, diverticular disease of intestine with perforation and abscess, cerebral palsy and herpes zoster. His most recent admission to [facility] was from 07/13-07/17/20 for diverticulitis with microperforation, extraluminal gas and small amount of fluid within the left paracolic gutter. He reports that he had been improving until last night when he ate some hot sausage, and now has recurrent symptoms of LLQ pain and burning. CT of abdomen and pelvis in the ED tonight shows redemonstration of the diverticulitis involving the distal descending colon/proximal sigmoid colon. The inflammatory change and bowel wall thickening, and extraluminal gas has improved. There is a small phlegmon/abscess in the LLQ that could be a developing fistula. Decreased in size from 4.9 to 2.5cm. Allergies Allergy/AdvReac Type Severity Reaction Status Date / Time No Known Allergies Allergy Verified 08/28/20 17:21 Home Medications Medication Instructions Recorded Confirmed Type No Known Home Medications 07/13/20 08/28/20 History Past Med/Surg History Medical History Abscess of sigmoid colon due to diverticulitis Alcoholism /alcohol abuse Cerebral palsy Diverticulitis Social History Smoking Status: Current some day smoker Tobacco Type: Cigarettes Cigarettes Per Day: occasional smoker; Second Hand Exposure: Yes; Hx Alcohol Use: Yes Alcohol type: beer Hx Substance Use: No Preferred Language: Mongolian Communication Ability: Effective Managing Editor Required: No Beliefs That Will Affect Care: None marital status: Single Current Living Situation: Family Current Living Situation Comment: Father lives with patient Feels Safe at Home: Yes Assistive Devices: None Review of Systems Review of Systems: The patient denies chest pain, palpitations, shortness of breath, dyspnea on exertion, cough, lower extremity swelling, sore throat, fevers, chills, sweats, weight change, fatigue, nausea, vomiting, diarrhea , constipation, blood in urine or stool, dysuria, urinary frequency or urgency, lightheadedness, dizziness, headache, memory loss, loss of consciousness, rash, abnormal bruising or bleeding, imbalance, focal or generalized weakness, numbness or tingling in arms or legs, generalized arthralgias or myalgias, back or neck pain, or night sweats. The review of systems is otherwise negative other than for that already noted above, and at least 10 systems have been reviewed. Physical Exam Physical Exam: The patient is awake, alert and oriented 3, well developed and well nourished, normocephalic and atraumatic, lying in bed and in no acute distress. HEENT--PERRL, EOMI, mucous membranes and oropharynx dry. Neck--supple. No JVD. No bruits. Thyroid normal, trachea midline, no adenopathy. Heart--normal S1 and S2. No murmurs, rubs or gallops. Lungs--clear bilaterally, no respiratory distress, no accessory muscle use. Abdomen--decreased bowel sounds and soft. Tender left lower quadrant. nondistended. Obese Extremities--no cyanosis or clubbing. No edema. Dermatologic--normal skin turgor, normal color, no abnormal lymph nodes, no rash. Neurologic--cranial nerves II through XII grossly intact. Rheumatologic--normal range of motion. Psychiatric--normal affect. Results & Data Results & Data ([facility]) Vital Signs (Past 12 Hours) Vital Signs Temp Pulse Pulse Resp BP BP Pulse Ox 08/28/20 19:20 95 H 18 131/103 H 97 08/28/20 17:53 96 H 20 148/107 H 96 08/28/20 17:50 95 08/28/20 16:47 113 H 20 149/104 H 96 08/28/20 13:58 98.6 F 102 H 20 146/97 H 96 Laboratory Results Laboratory Results WBC 9.37 K/uL (4.8-10.8) 08/28/20 17:37 RBC 4.82 M/uL (4.7-6.1) 08/28/20 17:37 Hgb 15.9 g/dL (14.0-18.0) 08/28/20 17:37 Hct 45.2 % (42-52) 08/28/20 17:37 MCV 93.8 fL (80-100) 08/28/20 17:37 MCH 33.0 pg (25-34) 08/28/20 17:37 MCHC 35.2 g/dL (32-36) 08/28/20 17:37 RDW Std Deviation 43.9 fL (36.4-46.3) 08/28/20 17:37 RDW Coeff of Nancy 12.8 % (11.5-14.5) 08/28/20 17:37 Plt Count 243 K/uL (130-400) 08/28/20 17:37 MPV 10.4 fL (7.4-10.4) 08/28/20 17:37 Immature Gran % (Auto) 0.2 % 08/28/20 17:37 Neut % (Auto) 66.9 % 08/28/20 17:37 Lymph % (Auto) 22.9 % 08/28/20 17:37 [place] % (Auto) 7.9 % 08/28/20 17:37 Eos % (Auto) 1.9 % 08/28/20 17:37 Baso % (Auto) 0.2 % 08/28/20 17:37 Neut # (Auto) 6.26 K/uL (1.4-6.5) 08/28/20 17:37 Lymph # (Auto) 2.15 K/uL (1.2-3.4) 08/28/20 17:37 [place] # (Auto) 0.74 K/uL (0.11-0.59) H 08/28/20 17:37 Eos # (Auto) 0.18 K/uL (0-0.5) 08/28/20 17:37 Baso # (Auto) 0.02 K/uL (0-0.2) 08/28/20 17:37 Immature Gran # (Auto) 0.02 K/uL (0.00-0.02) 08/28/20 17:37 Sodium 138 mmol/L (136-145) 08/28/20 17:37 Potassium 3.8 mmol/L (3.5-5.1) 08/28/20 17:37 Chloride 106 mmol/L (98-107) 08/28/20 17:37 Carbon Dioxide 22 mmol/L (21-32) 08/28/20 17:37 Anion Gap 11.0 (3-11) 08/28/20 17:37 BUN 12 mg/dl (7-18) 08/28/20 17:37 Creatinine 0.90 mg/dl (0.6-1.4) 08/28/20 17:37 Est Cr Clr Drug Dosing 134.8 ml/min 08/28/20 17:37 Est GFR ( Amer) 123.4 08/28/20 17:37 Est GFR (Non-Af Amer) 106.5 08/28/20 17:37 BUN/Creatinine Ratio 13.8 (10-20) 08/28/20 17:37 Glucose 92 mg/dl (70-99) 08/28/20 17:37 Calcium 8.8 mg/dl (8.5-10.1) 08/28/20 17:37 Total Bilirubin 0.8 mg/dl (0.2-1) 08/28/20 17:37 AST 25 U/L (15-37) 08/28/20 17:37 ALT 44 U/L (12-78) 08/28/20 17:37 Alkaline Phosphatase 116 U/L (45-117) 08/28/20 17:37 Total Protein 7.8 gm/dl (6.4-8.2) 08/28/20 17:37 Albumin 3.2 gm/dl (3.4-5.0) L 08/28/20 17:37 Globulin 4.6 gm/dl (2.5-4.0) H 08/28/20 17:37 Albumin/Globulin Ratio 0.7 (0.9-2) L 08/28/20 17:37 Lipase 77 U/L (73-393) 08/28/20 17:37 Urine Color [place] 08/28/20 17:37 Urine Appearance Clear (Clear) 08/28/20 17:37 Urine pH 5.0 (4.5-7.5) 08/28/20 17:37 Ur Specific [place] 1.032 (1.000-1.030) H 08/28/20 17:37 Urine Protein Trace (Negative) H 08/28/20 17:37 Urine Glucose (UA) Negative (Negative) 08/28/20 17:37 Urine Ketones 2+ (Negative) H 08/28/20 17:37 Urine Blood 2+ (Negative) H 08/28/20 17:37 Urine Nitrite Positive (Negative) A 08/28/20 17:37 Urine Bilirubin Negative (Negative) 08/28/20 17:37 Urine Urobilinogen Negative (Negative) 08/28/20 17:37 Ur Leukocyte Esterase Trace (Negative) H 08/28/20 17:37 Urine WBC (Auto) 1-5 /hpf (0-5) 08/28/20 17:37 Urine RBC (Auto) 0-4 /hpf (0-4) 08/28/20 17:37 U Hyaline Cast (Auto) 1-5 /lpf (0-5) 08/28/20 17:37 U Epithel Cells (Auto) 5-10 /lpf (0-5) H 08/28/20 17:37 Urine Bacteria (Auto) Negative (Negative) 08/28/20 17:37 SARS-CoV-2 Ag (Rapid) Negative (Negative) 08/28/20 19:53 Diagnostic Findings [facility], [phone] CT Scan Report Patient: JAMES LORA Date: 08/28/20MR#: [id number]: [address] ID:[id number]: Date: [address] Zip: [place] [id number]: 40Location: EDSex: MRoom/Bed:Att Phy:Diagnosis: DIVERTICULITISPri Phy: KELSIE,NOService Date: 08/28/20Fam Phy:Interpreting Phy: Aristeo Corbin MDAdmit Phy: Ordering Phy: Manuel Brown D.O. cc: ~ ABDOMEN AND PELVIS CT WITH IV CONTRAST CT DOSE: 1445.64 mGy.cm HISTORY: Left lower quadrant abdominal pain. History of diverticulitis. TECHNIQUE: Multiaxial CT images of the abdomen and pelvis were performed following the use of intravenous contrast. A dose lowering technique was utilized adhering to the principles of ALARA. COMPARISON STUDY: Abdomen and pelvis CT 07/13/2020. FINDINGS: The lung bases are clear. No fractures within the visualized osseous structures. Hepatic steatosis. The main portal vein is patent. The gallbladder, pancreas, spleen, and adrenal glands are unremarkable. The kidneys enhance normally. No hydronephrosis. No retroperitoneal lymphadenopathy. The bladder is unremarkable. No evidence for bowel obstruction. Normal appendix. Interval improvement in the pericolonic fat stranding and bowel wall thickening involving the distal descending colon and proximal sigmoid colon. This is consistent with an acute diverticulitis. Small amount of extraluminal pericolonic gas has improved consistent with a microperforation. There is a small phlegmon/abscess seen within the left lower quadrant abutting the left lower quadrant abdominal wall. This could represent a developing fistula. This currently measures 2.5 cm, previously measuring 4.9 cm. IMPRESSION: 1. Redemonstration of the diverticulitis involving the distal descending colon/proximal sigmoid colon. The inflammatory change and bowel wall thickening has improved. The extraluminal gas has also improved in the interval consistent with microperforation. There is a small phlegmon/abscess seen within the left l ower quadrant abutting the left lower quadrant abdominal wall and inflamed sigmoid colon. This could represent a developing fistula. This currently measures 2.5 cm, previously measuring 4.9 cm. Again, recommend follow-up colonoscopy once the diverticulitis has resolved to exclude the less likely possibility of an underlying colonic lesion. 2. Normal appendix. 3. No evidence for bowel obstruction. 4. Hepatic steatosis. ACT 112: Negative or not required by law. Electronically signed by: Aristeo Corbin M.D. 08/28/2020 6:47 PM Dictated: 08/28/201839Transcribed: 08/28/201839 [facility], [phone] XRay Report Patient: JAMES LORA Date: 08/28/20MR#: [id number]: [address] ID:[id number]: Date: [address] Zip: [place] [address]Mkl: 40Location: EDSex: MRoom/Bed:Att Phy:Diagnosis: DIVERTICULITISPri Phy: PCP,NOService Date: 08/28/20Fam Phy:Interpreting Phy: Aristeo Corbin MDAdmit Phy: Ordering Phy: Manuel Brown D.O. cc: ~ XR chest 1V portable HISTORY: Shortness of breath. Resp sx c/w COVID-19 COMPARISON: None. FINDINGS: The lungs are clear. Cardiac silhouette is top normal in size. No pleural effusions. No pneumothorax. IMPRESSION: No acute process. ACT 112: Negative or not required by law. Electronically signed by: Aristeo Corbin M.D. 08/28/2020 8:33 PM Dictated: 08/28/202031Transcribed: 08/28/202031 Code Status & VTE Plan Code Status Full code VTE Prophylaxis Plan VTE Prophylaxis will be ordered: Yes PG Care Time/CCT Total # of Minutes Spent Total Time Spent with Patient: Total time spent is greater than 50% in coordination of care (as documented) at patient's floor/unit and/or counseling patient: Coding Level of Care Code 95775 Initial Inpt Care Lvl 2 Diagnoses Diverticular disease of intestine with perforation and abscess K57.80 Alcohol abuse F10.10
--- NOTE | 2020-08-28 20:34 | XRay Report ---
XR chest 1V portable HISTORY: Shortness of breath. Resp sx c/w COVID-19 COMPARISON: None. FINDINGS: The lungs are clear. Cardiac silhouette is top normal in size. No pleural effusions. No pne umothorax. IMPRESSION: No acute process. ACT 112: Negative or not required by law. Electronically signed by: Aristeo Corbin M.D. 08/28/2020 8:33 PM
--- NOTE | 2020-08-28 21:06 | Surgery Consultation ---
Date of Consultation August 28, 2020 Assessment & Plan (1) Diverticulitis large intestine: -pt. has stella admitted by hospitalist, case was discussed: -continue abx--zosyn -keep npo except ice chips -hydrate with IVF -ideally would like to treat medically and have pt. undergo colonoscopy prior to any surgery -discussed with pt. that if he clinically deteriorates urgent operation requiring ostomy may be needed History of Present Illness History of Present Illness 40 year old male admitted by hospitalist secondary to diverticulitis. This man had an episode of diverticulitis in June of 2019 and again in June of 2020. He was treated medically both times and was scheduled for a colonoscopy in September of 2020. He came to the ED as he noted left sided abdominal pain, similar to what he noted previously, in the LLQ. It is non radiating and worse with movement, improved with lying still. He denies diarrhea, N/V, fevers, shakes, chills. He has been able to tolerate liquids and has not eaten solids in almost 3 days. In the ED, he was noted to be afebrile with normal WBC. COVID-19 test was (-). Ct scan of the abdomen showed concern for sigmoid diverticulitis with a 2.5 cm abscess. At the time of my exam he was in no distress. Allergies Allergy/AdvReac Type Severity Reaction Status Date / Time No Known Allergies Allergy Verified 08/28/20 17:21 Home Medications Medication Instructions Recorded Confirmed Type No Known Home Medications 07/13/20 08/28/20 History Patient History Medical History Abscess of sigmoid colon due to diverticulitis Alcoholism /alcohol abuse Cerebral palsy Diverticulitis Social History Smoking Status: Current some day smoker Tobacco Type: Cigarettes Cigarettes Per Day: occasional smoker; Second Hand Exposure: Yes; Hx Alcohol Use: Yes Alcohol type: beer Hx Substance Use: No Preferred Language: Luxembourgish Communication Ability: Effective [employer] Specialist Required: No Beliefs That Will Affect Care: None marital status: Single Current Living Situation: Family Current Living Situation Comment: Father lives with patient Feels Safe at Home: Yes Assistive Devices: None Review of Systems Constitutional: no fever and no chills Eyes: no diplopia Ear, Nose, Mouth, Throat: no ear pain Respiratory: no cough and no dyspnea Cardiovascular: no chest pain Gastrointestinal: + abdominal pain; no nausea and no vomiting Genitourinary: no dysuria Musculoskeletal: no back pain Integumentary: no rash Neurologic: no localized weakness Physical Exam Constitutional: well developed and well nourished; no acute distress Eyes: no conjunctival abnormality ENMT: Ears: no hearing impairment Neck: trachea midline Respiratory: normal respiratory effort, lungs clear to auscultation Cardiovascular: Rate/Rhythm: regular rate and regular rhythm Gastrointestinal (Abdomen): Percussion/Palpation: + abdomen tender (LLQ) and abdomen soft minor rebound tenderness noted Musculoskeletal: no calf pain Skin: no rashes, warm and dry Neurologic: moves all extremities Results & Data ([facility]) Vital Signs (Past 12 Hours) Vital Signs Temp Pulse Pulse Resp BP BP Pulse Ox 08/28/20 19:20 95 H 18 131/103 H 97 08/28/20 17:53 96 H 20 148/107 H 96 08/28/20 17:50 95 08/28/20 16:47 113 H 20 149/104 H 96 08/28/20 13:58 37.0 C 102 H 20 146/97 H 96 PG Care Time/CCT Total # of Minutes Spent Total Time Spent with Patient: Total time spent is greater than 50% in coordination of care (as documented) at patient's floor/unit and/or counseling patient: Coding Level of Care Code 10938 Inpt Consult Level 5 Diagnoses Diverticulitis large intestine K57.32 Diverticulitis bleeding: without bleeding (1) Diverticulitis large intestine Diverticulitis bleeding: without bleeding
[2020-08-28] MEDS ORDERED: ACETAMINOPHEN 325 MG TAB PO PRN (21:31)
[2020-08-28] MEDS ORDERED: ONDANSETRON INJ 2 MG/ML 2 ML VIAL IV PRN (21:31)
[2020-08-28] MEDS: NSS + 20MEQ KCL 20 MEQ/1,000 ML BAG IV SCH (22:54)
[2020-08-28] MEDS: ACETAMINOPHEN 1,000 MG/100 ML VIAL IV PRN (22:54)
[2020-08-28] MEDS: PIPERACILLIN/TAZOBACTAM 4.5 GM in DEXTROSE 5% 100 ML IV SCH (23:02)
[2020-08-28] MEDS ORDERED: LORazepam 1 MG/2 ML VIAL IV PRN (23:28)
[2020-08-29] MEDS: FAMOTIDINE 20 MG in SYRINGE 3 ML IV SCH ×3 (02:37→22:02)
[2020-08-29 04:03] LABS: Basophils # (auto) 0.03 K/uL (0-0.2); Basophils % (auto) 0.4 %; Eosinophils # (auto) 0.43 K/uL (0-0.5); Eosinophils % (auto) 5.1 %; Hematocrit (blood only) 44.2 % (42-52); Hemoglobin 14.7 g/dL (14.0-18.0); Immature Granulocytes # (auto) 0.02 K/uL (0.00-0.02); Immature Granulocytes % (auto) 0.2 %; Lymphocytes # (auto) 2.42 K/uL (1.2-3.4); Lymphocytes % (auto) 28.6 %; Mean Corpuscular Hemoglobin 31.8 pg (25-34); Mean Corpuscular Hgb Conc 33.3 g/dL (32-36); Mean Corpuscular Volume 95.7 fL (80-100); Mean Platelet Volume 10.3 fL (7.4-10.4); Monocytes # (auto) 0.77 K/uL (0.11-0.59); Monocytes % (auto) 9.1 %; Neutrophils % (auto) 56.6 %; Platelet Count 220 K/uL (130-400); RDW Coefficient of Variation 12.9 % (11.5-14.5); RDW Standard Deviation 44.4 fL (36.4-46.3); Red Blood Count 4.62 M/uL (4.7-6.1); White Blood Count 8.47 K/uL (4.8-10.8)
[2020-08-29 04:24] LABS: Albumin Level 2.7 gm/dl (3.4-5.0); Calcium 8.4 mg/dl (8.5-10.1); Creatinine Clr Calc Pharmacy 130.4 ml/min; Est GFR (African American) 118.6; Est GFR (Non-African American) 102.3; Magnesium 2.2 mg/dl (1.8-2.4); Potassium 4.3 mmol/L (3.5-5.1)
[2020-08-29 04:27] LABS: Albumin Globulin Ratio 0.7 (0.9-2); Bilirubin,Total 1.1 mg/dl (0.2-1); Globulin 3.9 gm/dl (2.5-4.0); Phosphorus 2.8 mg/dl (2.5-4.9); Total Protein 6.6 gm/dl (6.4-8.2)
[2020-08-29] MEDS: PIPERACILLIN/TAZOBACTAM 4.5 GM in DEXTROSE 5% 100 ML IV SCH ×3 (06:00→22:02)
[2020-08-29] MEDS: NSS + 20MEQ KCL 20 MEQ/1,000 ML BAG IV SCH ×2 (09:00→19:14)
--- NOTE | 2020-08-29 18:09 | Hospitalist Progress Note ---
Date of Service August 29, 2020 Assessment & Plan (1) Diverticular disease of intestine with perforation and abscess: 40 y/o M w/ hx of recurrent diverticulitis w/ perforation and abscess, cerebral palsy, and alcohol use disorder who presents w/ LLQ abdominal pain and was found to have recurrence of diverticulitis w/ perforation. Last admission for diverticulitis was 06/2020. Patient is stable. Sigmoid diverticulitis w/ perforation and abscess/phlegmon - This is patient's 3rd admission for diverticulitis - 08/28/20 CT abd/pelv: Redemonstration of the diverticulitis involving the distal descending colon/proximal sigmoid colon. The inflammatory change and bowel wall thickening has improved. The extraluminal gas has also improved in the interval consistent with microperforation. There is a small phlegmon/abscess seen within the left lower quadrant abutting the left lower quadrant abdominal wall and inflamed sigmoid colon. This could represent a developing fistula. This currently measures 2.5 cm, previously measuring 4.9 cm (from 07/13/20). Again, recommend follow-up colonoscopy once the diverticulitis has resolved to exclude the less likely possibility of an underlying colonic lesion. - NPO except for ice chips and sips. continue NPO for bowel rest - Continue Zosyn 4.5 g IV every 8 hours - Zofran PRN - NSS + KCl 20 mEq 100 mL/hr - Famotidine 20 mg IV q12 - Acetaminophen 650 mg p.o. every 6 hours as needed pain or fever - Morphine sulfate 2 mg IV every 4 hours as needed severe pain - no leukocytosis - corrected Ca 9.4 - Consulted general surgery Dr. Patel. No emergent surgery planned at this time. May consider outpatient procedure such as drain placement in future. However, there would not be much to drain currently. Perhaps laparascopy to flush out the area may be considered. For larger surgery or deterioration, may need ostomy. Will need IV antibiotics and perhaps PICC placement after dispo. Consider ID consult. alcohol use disorder - patient endorses heavy use in past. Since mid June 2020 (after hospital discharge), has cut back from 15 drinks/night to 3-4 beers/night, last 2 nights ago. Denies hx of withdrawal symptoms - 1 mg Ativan q4h PRN hx fatty liver - CMP this admission showed normal transaminases and alk phos. mild elevation in t bili 1.1 FEN/GI: NSS + KCl 20 mEq 100 mL/hr. NPO dvt ppx: SCDs code: full dispo: med/surg (2) Alcohol abuse: Admission and Anticipated Discharge Date Admission Date: August 28, 2020 Supervising Physician Co-Signing Physician Notes Attending attestation Pt seen and examined in concert with Dr. Goldberg. In agreement with the documented findings as noted in the resident documentation with any exceptions or additions as noted here. Pain controlled on current regimen and minimal at rest presently, worsens with movement but still tolerable. On examination, S1/S2 nl RRR no MCG. CTAB. Abd TTP LLQ without guarding. BS + CBC and BMP reviewed Diverticulitis w/ perforation/abscess - surgical consultation - continue IV abx (zosyn) GERD - continue famotidine etOH abuse - reports has decreased from 15+ per night to 3-4 per night, last 2 nights ago. No history of significant withdrawal symptoms. Ativan PRN Subjective This is his 3rd admission for diverticulitis (05/2019 and 06/2020). His main complaint is LLQ abd pain that started 3 mornings ago and is similar to his diverticulitis episodes. The new symptom, that started yesterday, is a midabdominal burning sensation 6/10 intensity and was at its worse last night. No F/C, N/V. Denies decreased appetite. Review of Systems Review of Systems: Constitutional: Denies fever, chills Cardiovascular: Denies chest pain Respiratory: Denies shortness of breath, difficulty breathing Gastrointestinal: Denies nausea, vomiting, constipation, diarrhea, bloody stool. + abdominal pain. Genitourinary: Denies urinary symptoms, dysuria, hematuria Musculoskeletal: Denies weakness Neurological: Denies headache, numbness, tingling Physical Exam Physical Exam: General: Grossly alert and oriented, No acute distress. HEENT: Normocephalic, normal gross hearing, moist oral mucosa. Cardiovascular: Normal rate, Regular rhythm, No murmurs, rubs, or gallops. Respiratory: Clear to auscultation bilaterally. Breath sounds are equal. No respiratory distress. Gastrointestinal: Soft, Non-distended. Moderate tenderness to palpation in LLQ, no rebound or guarding. + bowel sounds. Integumentary: Warm, dry, intact Results & Data Results & Data ([facility]) Vital Signs (Past 12 Hours) 1500: 145/96. 86 pulse. 18 rr. 36.7C. 96% on RA. Resident Activity Tracking Resident Involvement: Resident Care Provided Care Provided: Adult [facility] Medicine
[2020-08-29] MEDS: ACETAMINOPHEN 1,000 MG/100 ML VIAL IV PRN (19:21)
[2020-08-30] MEDS: NSS + 20MEQ KCL 20 MEQ/1,000 ML BAG IV SCH (04:02)
[2020-08-30] MEDS: PIPERACILLIN/TAZOBACTAM 4.5 GM in DEXTROSE 5% 100 ML IV SCH ×3 (05:28→22:41)
[2020-08-30] MEDS: ACETAMINOPHEN 1,000 MG/100 ML VIAL IV PRN (05:35)
--- NOTE | 2020-08-30 06:07 | Surgery Progress Note ---
Date of Service August 30, 2020 Assessment & Plan (1) Diverticulitis large intestine: -pt. seems to be clinically improving slowly -continue conservative measures: -IVF for hydration -bowel rest -IV abx--zosyn -consider diet advancement once further improvement noted Dr. Patel-we will continue his IV antibiotics, try to check with case management if he would be a candidate for home IV antibiotics Add clear liquids today, he did have improvement from his prior CT scan but does have indication of continued inflammation If he requires discharge home at his request we may consider p.o. Augmentin for 2 to 3 weeks and be sure he takes it. Apparently when he left the hospital before he took the antibiotics until he felt well and then stopped them-likely too early Admission and Anticipated Discharge Date Admission Date: August 28, 2020 Subjective Pt. notes his abdomen is no worse. He denies N/V. No fevers. He is having liquid BMs. Physical Exam Gastrointestinal (Abdomen): Percussion/Palpation: + abdomen tender (LLQ pain with palpation ) and abdomen soft Results & Data ([facility]) Vital Signs (Past 12 Hours) Vital Signs Temp Pulse Resp BP Pulse Ox 08/29/20 23:00 36.9 C 80 20 118/74 96 PG Care Time/CCT Total # of Minutes Spent Total Time Spent with Patient: Total time spent is greater than 50% in coordination of care (as documented) at patient's floor/unit and/or counseling patient: Coding Level of Care Code 96938 Subseq Hosp Care Lvl 1 Diagnoses Diverticulitis large intestine K57.32 Diverticulitis bleeding: without bleeding (1) Diverticulitis large intestine Diverticulitis bleeding: without bleeding
[2020-08-30 07:00] LABS: Basophils # (auto) 0.05 K/uL (0-0.2); Basophils % (auto) 0.7 %; Eosinophils # (auto) 0.41 K/uL (0-0.5); Eosinophils % (auto) 5.6 %; Hematocrit (blood only) 44.6 % (42-52); Hemoglobin 15.2 g/dL (14.0-18.0); Immature Granulocytes # (auto) 0.01 K/uL (0.00-0.02); Immature Granulocytes % (auto) 0.1 %; Lymphocytes # (auto) 1.78 K/uL (1.2-3.4); Lymphocytes % (auto) 24.3 %; Mean Corpuscular Hemoglobin 32.2 pg (25-34); Mean Corpuscular Hgb Conc 34.1 g/dL (32-36); Mean Corpuscular Volume 94.5 fL (80-100); Mean Platelet Volume 10.3 fL (7.4-10.4); Monocytes % (auto) 8.2 %; Neutrophils # (auto) 4.49 K/uL (1.4-6.5); Neutrophils % (auto) 61.1 %; Platelet Count 231 K/uL (130-400); RDW Coefficient of Variation 12.6 % (11.5-14.5); RDW Standard Deviation 43.2 fL (36.4-46.3); Red Blood Count 4.72 M/uL (4.7-6.1); White Blood Count 7.34 K/uL (4.8-10.8)
--- NOTE | 2020-08-30 07:04 | Hospitalist Progress Note ---
Date of Service August 30, 2020 Assessment & Plan (1) Diverticular disease of intestine with perforation and abscess: Terell Trevizo is a 40 y/o male with h/o recurrent diverticulitis w/ perforation and abscess and alcohol use disorder who was admitted on 08/28/2020 for diverticulitis with perforation and abscess. Sigmoid diverticulitis w/ perforation and abscess/phlegmon - This is patient's 3rd admission for diverticulitis in 1 year - 08/28/20 CT abd/pelv: Diverticulitis with interval improvement in size of abscess vs phlegmon (4.9cm --> 2.5cm), inflammatory change, bowel wall thickening, extraluminal gas since CT in 06/2020. - LLQ pain improved today, tolerated full liquid diet w/o issues, IVFs d/c'd, advance diet as tolerated - Continue Zosyn 4.5 g IV Q8H, plan to transition to PO tomorrow for total 10-14 days abx (e.g. Augmentin) - Continue Tylenol/Morphine PRN pain regimen - surgery following, appreciate recs - recommend colonoscopy as outpatient for further eval before considering surgery - trend CBC daily Diarrhea - three episodes today, no blood/mucus - in setting of diverticulitis, as well as abx x4 days - follow clinically for changes --> would consider ordering c. diff ag if symptoms worsen GERD - Famotidine transitioned from 20mg IV BID to 20mg PO BID - PRN Zofran Alcohol Use Disorder - Since mid June 2020 (after hospital discharge), has cut back from 15 drinks/night to 3-4 beers/night, last drink 2 nights ago. Denies h/o withdrawal symptoms - 1 mg Ativan q4h PRN FEN/GI: clear liquids, advance as tolerated dvt ppx: SCDs code: full code dispo: med/surg, possible d/c tomorrow on PO abx if medically stable (2) Alcohol abuse: Admission and Anticipated Discharge Date Admission Date: August 28, 2020 Supervising Physician Co-Signing Physician Notes Attending attestation Pt seen and examined in concert with Dr. Garza. In agreement with the documented findings as noted in the resident documentation with any exceptions or additions as noted here. 40 y/o male h/o diverticulitis w/ abscess s/p hospitalization redamitted with worsening symptoms w/ concern for nonadherence. Pain continues to improve. Tolerating POI well with advancing diet. On examination, S1/S2 nl RRR no MCG. CTAB. Abd TTP LLQ without guarding. BS + Diverticulitis w/ perforation/abscess - surgical consultation - continue IV abx (zosyn) with likely transition to PO augmentin in AM and counseling for need to complete entirety of course GERD - continue famotidine etOH abuse - reports has decreased from 15+ per night to 3-4 per night, last 2 nights TOY STUFFER. No history of significant withdrawal symptoms. Ativan PRN Subjective No acute events overnight. Tolerated full liquid diet this morning without N/V/increased abdominal pain. Reports mild improvement if LLQ abdominal pain. Also reports three episodes of diarrhea so far today - no blood/mucus. Denies fever/chills, chest pain, SOB/cough, N/V. Review of Systems Review of Systems: pertinent positives and negatives mentioned in HPI Physical Exam Constitutional: WD/WN, vitals as above Respiratory: normal respiratory effort, lungs clear to auscultation Cardiovascular: RRR, no murmur, no edema Gastrointestinal (Abdomen): Percussion/Palpation: + abdomen tender (severe TTP of LLQ) and abdomen soft; no guarding no rebound tenderness Skin: no rashes, warm and dry Psychiatric: A+Ox3, euthymic affect Results & Data Results & Data ([facility]) Vital Signs (Past 12 Hours) Vital Signs Temp Pulse Resp BP Pulse Ox 08/29/20 23:00 36.9 C 80 20 118/74 96 Resident Activity Tracking Resident Involvement: Resident Care Provided Care Provided: Adult Hospital Medicine
[2020-08-30 07:40] LABS: Calcium 8.5 mg/dl (8.5-10.1); Creatinine Clr Calc Pharmacy 142.7 ml/min; Est GFR (African American) 126.3; Magnesium 2.2 mg/dl (1.8-2.4); Potassium 4.2 mmol/L (3.5-5.1)
[2020-08-30 07:49] LABS: Albumin Globulin Ratio 0.7 (0.9-2); Globulin 4.2 gm/dl (2.5-4.0); Phosphorus 2.1 mg/dl (2.5-4.9); Total Protein 7.2 gm/dl (6.4-8.2)
[2020-08-30] MEDS: FAMOTIDINE 20 MG in SYRINGE 3 ML IV SCH (09:54)
[2020-08-30] MEDS ORDERED: KETOROLAC 30 MG/ML VIAL IV PRN (21:06)
[2020-08-30] MEDS: FAMOTIDINE 20 MG TAB PO SCH (22:41)
[2020-08-30] MEDS: MoRPHine SULFATE 2 MG/ML CARP IV PRN (22:44)
[2020-08-31] MEDS: MoRPHine SULFATE 2 MG/ML CARP IV PRN ×2 (02:44→20:28)
[2020-08-31] MEDS: PIPERACILLIN/TAZOBACTAM 4.5 GM in DEXTROSE 5% 100 ML IV SCH ×3 (05:49→21:19)
[2020-08-31 06:58] LABS: Basophils # (auto) 0.04 K/uL (0-0.2); Basophils % (auto) 0.6 %; Eosinophils # (auto) 0.57 K/uL (0-0.5); Eosinophils % (auto) 8.3 %; Hematocrit (blood only) 40.9 % (42-52); Hemoglobin 13.8 g/dL (14.0-18.0); Immature Granulocytes # (auto) 0.01 K/uL (0.00-0.02); Immature Granulocytes % (auto) 0.1 %; Lymphocytes # (auto) 2.17 K/uL (1.2-3.4); Lymphocytes % (auto) 31.4 %; Mean Corpuscular Hemoglobin 31.8 pg (25-34); Mean Corpuscular Hgb Conc 33.7 g/dL (32-36); Mean Corpuscular Volume 94.2 fL (80-100); Monocytes # (auto) 0.59 K/uL (0.11-0.59); Monocytes % (auto) 8.6 %; Neutrophils # (auto) 3.52 K/uL (1.4-6.5); Platelet Count 220 K/uL (130-400); RDW Coefficient of Variation 12.7 % (11.5-14.5); RDW Standard Deviation 43.9 fL (36.4-46.3); Red Blood Count 4.34 M/uL (4.7-6.1)
[2020-08-31 07:43] LABS: Creatinine Clr Calc Pharmacy 133.3 ml/min; Est GFR (African American) 121.8; Magnesium 2.2 mg/dl (1.8-2.4); Phosphorus 2.7 mg/dl (2.5-4.9); Potassium 3.6 mmol/L (3.5-5.1)
[2020-08-31] MEDS: FAMOTIDINE 20 MG TAB PO SCH ×2 (08:04→20:27)
--- NOTE | 2020-08-31 10:16 | Surgery Progress Note ---
Date of Service August 31, 2020 Assessment & Plan (1) Diverticulitis large intestine: Recurrent/persistent with phlegmon and abscess. will need extended abx, prefer IV if possible may advance diet later today or tomorrow as juan Admission and Anticipated Discharge Date Admission Date: August 28, 2020 Subjective had pain LLQ last night, better this AM, small soft BM, wants to stay on clears for now Physical Exam Gastrointestinal (Abdomen): Inspection/Auscultation: abdomen not distended Percussion/Palpation: + abdomen tender (mild LLQ) and abdomen soft Results & Data ([facility]) Vital Signs (Past 12 Hours) Vital Signs Temp Pulse Resp BP Pulse Ox 08/31/20 08:00 36.6 C 59 L 18 125/70 96 08/30/20 23:11 36.9 C 71 20 127/81 97 PG Care Time/CCT Total # of Minutes Spent Total Time Spent with Patient: Total time spent is greater than 50% in coordination of care (as documented) at patient's floor/unit and/or counseling patient: Coding Level of Care Code 94904 Subseq Hosp Care Lvl 1 Diagnoses Diverticulitis large intestine K57.32 Diverticulitis bleeding: without bleeding (1) Diverticulitis large intestine Diverticulitis bleeding: without bleeding
--- NOTE | 2020-08-31 12:26 | Hospitalist Progress Note ---
Date of Service August 31, 2020 Assessment & Plan (1) Diverticular disease of intestine with perforation and abscess: Terell Trevizo is a 40 y/o male with h/o recurrent diverticulitis w/ perforation and abscess and alcohol use disorder who was admitted on 08/28/2020 for diverticulitis with perforation and abscess. Sigmoid diverticulitis w/ perforation and abscess/phlegmon - This is patient's 3rd admission for diverticulitis in 1 year - 08/28/20 CT abd/pelv: Diverticulitis with interval improvement in size of abscess vs phlegmon (4.9cm --> 2.5cm), inflammatory change, bowel wall thickening, extraluminal gas since CT in 06/2020. - Continue Zosyn 4.5 g IV Q8H, plan to transition to PO on discharge for total 10-14 days abx (e.g. Augmentin) - Continue Tylenol/Morphine PRN pain regimen - surgery following, appreciate recs -- recommend colonoscopy as outpatient for further eval before considering surgery - trend CBC daily - diet advanced to low fiber diet per surgery Diarrhea - three episodes today, no blood/mucus - in setting of diverticulitis, as well as abx x4 days - follow clinically for changes --> would consider ordering c. diff ag if symptoms worsen GERD - Famotidine transitioned from 20mg IV BID to 20mg PO BID - PRN Zofran Alcohol Use Disorder - Since mid June 2020 (after hospital discharge), has cut back from 15 drinks/night to 3-4 beers/night, last drink 2 nights ago. Denies h/o withdrawal symptoms - 1 mg Ativan q4h PRN FEN/GI: advance as tolerated dvt ppx: SCDs code: full code dispo: med/surg, possible d/c tomorrow on PO abx if medically stable (2) Alcohol abuse: Admission and Anticipated Discharge Date Admission Date: August 28, 2020 Supervising Physician Co-Signing Physician Notes I personally examined the patient and verified all little points of history and exam, discussed case, and agree with decision making with Dr Miles feeling better overall but still having some waves of pain at times. vitals noted nad heent nc at mmm abd soft nd (+) LLQ tenderness voluntary guarding no rebound no rigidity diverticulitis/perforation/abscess - improving. advance diet. continue zosyn. otherwise as above Subjective Patient was seen and evaluated at bedside this morning. He states that overall, he was feeling better yesterday but around dinner time last night, he had an acute worsening of the LLQ pain. Patient states that the pain worsened to a 10/10 and he "gave in to morphine" 2mg IV at ~10pm last night. The morphine analgesia reportedly improved his pain and he was then able to sleep. Patient reports the current pain at 4/10. He does note decreased appetite (still with clear liquid diet ordered). Patient denies fever, chills, nausea, vomiting, CP, or SOB. Review of Systems Constitutional: no fever and no chills Respiratory: no cough and no dyspnea Cardiovascular: no chest pain Gastrointestinal: + abdominal pain; no nausea and no vomiting Musculoskeletal: no joint pain and no swelling Physical Exam Physical Exam: GENERAL: No acute distress. Well developed and well nourished. Vital signs as above. EYES: EOMI. Anicteric sclerae. HENT: Moist mucous membranes. RESPIRATORY: Clear to auscultation bilaterally. No wheezing, rales, or rhonchi. CARDIOVASCULAR: Regular rate and rhythm. No murmurs. ABDOMEN: Soft. + LLQ abdominal tenderness to palpation w/ voluntary guarding. No rebound. Normal bowel sounds. NEUROLOGIC: A/O x4. No focal neurological deficits. PSYCHIATRIC: Cooperative. Appropriate mood and affect. Results & Data Results & Data ([facility]) Vital Signs (Past 12 Hours) Vital Signs Temp Pulse Resp BP Pulse Ox 08/31/20 08:00 36.6 C 59 L 18 125/70 96 Resident Activity Tracking Resident Involvement: Resident Care Provided Care Provided: Adult [facility] Medicine
--- NOTE | 2020-08-31 16:42 | Billing Data ---
Date of Service August 31, 2020 Coding Level of Care Code 56331 Subseq Hosp Care Lvl 3
[2020-09-01] MEDS: MoRPHine SULFATE 2 MG/ML CARP IV PRN (00:36)
[2020-09-01] MEDS: PIPERACILLIN/TAZOBACTAM 4.5 GM in DEXTROSE 5% 100 ML IV SCH (05:29)
--- NOTE | 2020-09-01 06:09 | Surgery Progress Note ---
Date of Service September 01, 2020 Assessment & Plan (1) Diverticulitis large intestine: No acute changes We will need a PICC line for home IV antibiotics, will also need to discuss specific antibiotic We will discuss with the medical team Continue current care for now, may need to discharge home on oral antibiotics for 2 to 3 weeks Augmentin would be a good choice Admission and Anticipated Discharge Date Admission Date: August 28, 2020 Subjective Given some IV pain medication during the night Resting comfortably at the present time Vital signs are stable Review of Systems Review of Systems: All systems reviewed & are unremarkable except as noted in HPI & below Physical Exam Constitutional: well developed; no acute distress Respiratory: normal respiratory effort; no respiratory distress Cardiovascular: Rate/Rhythm: regular rate Neurologic: not confused Psychiatric: Orientation: cooperative Results & Data ([facility]) Vital Signs (Past 12 Hours) Vital Signs Temp Pulse Resp BP Pulse Ox 08/31/20 23:00 36.6 C 67 20 126/74 96 PG Care Time/CCT Total # of Minutes Spent Total Time Spent with Patient: Total time spent is greater than 50% in coordination of care (as documented) at patient's floor/unit and/or counseling patient: Coding Level of Care Code 04716 Inpt Consult Level 3 Diagnoses Diverticulitis large intestine K57.32 Diverticulitis bleeding: without bleeding (1) Diverticulitis large intestine Diverticulitis bleeding: without bleeding
[2020-09-01 07:30] LABS: Basophils # (auto) 0.02 K/uL (0-0.2); Basophils % (auto) 0.3 %; Eosinophils # (auto) 0.41 K/uL (0-0.5); Eosinophils % (auto) 6.2 %; Hematocrit (blood only) 42.3 % (42-52); Hemoglobin 14.2 g/dL (14.0-18.0); Immature Granulocytes # (auto) 0.01 K/uL (0.00-0.02); Immature Granulocytes % (auto) 0.2 %; Lymphocytes # (auto) 2.53 K/uL (1.2-3.4); Lymphocytes % (auto) 38.4 %; Mean Corpuscular Hemoglobin 31.7 pg (25-34); Mean Corpuscular Hgb Conc 33.6 g/dL (32-36); Mean Corpuscular Volume 94.4 fL (80-100); Mean Platelet Volume 10.2 fL (7.4-10.4); Monocytes # (auto) 0.48 K/uL (0.11-0.59); Monocytes % (auto) 7.3 %; Neutrophils # (auto) 3.13 K/uL (1.4-6.5); Neutrophils % (auto) 47.6 %; Platelet Count 219 K/uL (130-400); RDW Coefficient of Variation 12.7 % (11.5-14.5); RDW Standard Deviation 43.9 fL (36.4-46.3); Red Blood Count 4.48 M/uL (4.7-6.1); White Blood Count 6.58 K/uL (4.8-10.8)
[2020-09-01 07:59] LABS: Calcium 8.7 mg/dl (8.5-10.1); Creatinine Clr Calc Pharmacy 123.8 ml/min; Est GFR (African American) 111.3; Est GFR (Non-African American) 96.1; Potassium 3.8 mmol/L (3.5-5.1)
[2020-09-01] MEDS: FAMOTIDINE 20 MG TAB PO SCH (08:13)
[2020-09-01] MEDS ORDERED: ERTAPENEM SODIUM 1,000 MG in SODIUM CHLORIDE 0.9% 50 ML IV SCH (11:00)
--- NOTE | 2020-09-01 12:37 | Discharge Summary ---
Date of Service September 01, 2020 Admission HPI Per Admitting Provider The patient is a 40 yo male with a PMH of alcohol abuse, fatty liver, kidney stones, diverticulitis, morbid obesity, chewing tobacco, diverticular disease of intestine with perforation and abscess, cerebral palsy and herpes zoster. His most recent admission to [facility] was from 07/13-07/17/20 for diverticulitis with microperforation, extraluminal gas and small amount of fluid within the left paracolic gutter. He reports that he had been improving until last night when he ate some hot sausage, and now has recurrent symptoms of LLQ pain and burning. CT of abdomen and pelvis in the ED tonight shows redemonstration of the diverticulitis involving the distal descending colon/proximal sigmoid colon. The inflammatory change and bowel wall thickening, and extraluminal gas has improved. There is a small phlegmon/abscess in the LLQ that could be a developing fistula. Decreased in size from 4.9 to 2.5cm. Admission Exam Per Admitting Provider The patient is awake, alert and oriented 3, well developed and well nourished, normocephalic and atraumatic, lying in bed and in no acute distress. HEENT--PERRL, EOMI, mucous membranes and oropharynx dry. Neck--supple. No JVD. No bruits. Thyroid normal, trachea midline, no adenopathy. Heart--normal S1 and S2. No murmurs, rubs or gallops. Lungs--clear bilaterally, no respiratory distress, no accessory muscle use. Abdomen--decreased bowel sounds and soft. Tender left lower quadrant. nondistended. Obese Extremities--no cyanosis or clubbing. No edema. Dermatologic--normal skin turgor, normal color, no abnormal lymph nodes, no rash. Neurologic--cranial nerves II through XII grossly intact. Rheumatologic--normal range of motion. Psychiatric--normal affect. Principal Diagnosis diverticulitis Discharge Exam GENERAL: No acute distress. Well developed and well nourished. Vital signs revie mon. EYES: EOMI. HENT: Moist mucous membranes. RESPIRATORY: Clear to auscultation bilaterally. No wheezing, rales, or rhonchi. CARDIOVASCULAR: Regular rate and rhythm. No murmurs. ABDOMEN: Soft, minimal tenderness to palpation most prominent in LLQ. Normal bowel sounds. EXTREMITIES: No edema. Non-tender. PSYCHIATRIC: Cooperative. Appropriate mood and affect. Discharge Data Allergies Allergy/AdvReac Type Severity Reaction Status Date / Time No Known Allergies Allergy Verified 08/28/20 17:21 Consultations 08/28/20 19:22 ED Decision to Admit Stat 08/28/20 20:15 Consult General Surgery Routine 08/28/20 21:31 Consult Case Management - Discharge Planning Routine Ordered Studies 08/28/20 16:55 CT abd pelvis IV con only Stat Hospital Course (1) Diverticular disease of intestine with perforation and abscess: Terell Trevizo is a 40 y/o male with h/o recurrent diverticulitis w/ perforation and abscess and alcohol use disorder who was admitted on 08/28/2020 for diverticulitis with perforation and abscess. Sigmoid diverticulitis w/ perforation and abscess/phlegmon - This is patient's 3rd admission for diverticulitis in 1 year - 08/28/20 CT abd/pelv: Diverticulitis with interval improvement in size of abscess vs phlegmon (4.9cm --> 2.5cm), inflammatory change, bowel wall thickening, extraluminal gas since CT in 06/2020. - Continue Zosyn 4.5 g IV Q8H will admitted - Analgesia with Tylenol/Morphine PRN - surgery following, appreciate recs -- recommend colonoscopy as outpatient for further eval before considering surgery - trend CBC daily - diet advanced to low fiber diet per surgery on 08/31 - Surgery recommending ertapenem IV x14 days upon discharge; US guided p eripheral line placed - Advised patient that she should f/u with surgery as outpatient later this week or early next week Diarrhea - Three episodes 08/30, no blood/mucus - In setting of diverticulitis, as well as abx x4 days - Follow clinically for changes --> would consider ordering c. diff ag if symptoms worsen - Diarrhea resolved, no complaints of diarrhea 09/01 GERD - Famotidine transitioned from 20mg IV BID to 20mg PO BID - PRN Zofran Alcohol Use Disorder - Since mid June 2020 (after hospital discharge), has cut back from 15 drinks/night to 3-4 beers/night, last drink 2 nights ago. Denies h/o withdrawal symptoms - 1 mg Ativan q4h PRN FEN/GI: advance as tolerated dvt ppx: SCDs code: full code dispo: med/surg, possible d/c tomorrow on PO abx if medically stable (2) Alcohol abuse: Total Time Total Time Spent Total Time Spent (In Minutes): <30 Discharge Plan Discharge Items Patient Disposition: Home - Home Health Services Reason For Visit: DIVERTICULITIS WITH ABSCESS/PHLEGMON Discharge Diagnosis: diverticulitis Condition on Discharge: Good Activity: Resume your previous activity Non-emergency contact: Primary Care Provider Call non-emergency contact if: you have any medication questions, your symptoms worsen, your pain is not controlled, your pain is worsening and you have a fever Follow-up/Referrals: Cali Frank, [Physician] - 09/15/20 9:30 am (You have an appt on 09/15/20 at 9:[address] Frank) PCP,NO [Primary Care Provider] - Diet: Low Fiber Addtl Attending Provider Instructions: Terell Trevizo, It was our pleasure to care for you at [facility] from 08/28/20 to 09/01/20. You were admitted for diverticulitis. We treated the diverticulitis with IV antibiotics, fluids, pain medication, and rest. Your symptoms improved over the course of your stay. You were seen by the general surgeons and they recommend continuing with medical management to treat the infection and undergoing a colonoscopy as outpatient prior to any surgery. A colonoscopy will be needed in about 6 weeks with GI as an outpatient. In order to penetrate the bacteria and infection better, you are being discharged with an IV line in order to receive IV antibiotics. Specifically, you will be continuing with ertapenem (Invanvz) 1g through the IV once daily for the next 14 days. In addition, you should continue with a low fiber diet for 2 weeks. Follow up with your primary care physician within 1 week. You should also follow up with general surgery later this week or next week. Follow up with GI as scheduled. Return to [facility] if you have worsening abdominal pain, severe diarrhea, a fever over 100.4 degrees, you have vomiting and can't keep down food, or if you have any other concerns. Pending Studies at Discharge: No Stand-Alone Forms: My [facility], Work/School Release (Inpt), Smoking Cessation Medications and DC Order Prescriptions: New ertapenem [Invanz] 1 gram recon soln 1 g IV DAILY 14 Days Qty: 14 RF: 0 No Action No Known Home Medications RF: 0 Discharge Orders: Discharge Order (Routine); Ordered 09/01/20 Ordered By: Urvashi Choi/Other Patient Handouts: Low-Fiber Diet, ED Diverticulitis Admission Data Admit Date/Time: 08/28/20 19:50 Attending Provider: Gilmer Holly Admit Provider: Clayton Levy Primary Care Provider: PCP,NO Other Providers: Clayton Levy ; Tony Patel ; Lio Avelar ; Yoli,[facility] Other Interventions: Discharge Summary Assessment (RN) Last Done: 09/01/20 16:38 Supervising Physician Co-Signing Physician Notes I personally examined the patient and verified all little points of history and exam, discussed case, and agree with decision making with Dr Miles feeling better doing better eating ok. discussed ongoing treatment and need for outpt f/u and follow through. vitals noted nad heent nc at mmm abd soft nd (+) LLQ tenderness less voluntary guarding no rebound no rigidity diverticulitis/perforation/abscess - improving. tolerating regular diet. despite notes saying PICC for IV and PO augmentin - surgery reached out to let us know that they felt invanz would be best for ongoing care. this was then arranged. d/w pt frankly the need for follow through on complete course and need for f/u w surgery and GI/colo - especially with how long this appears to have been present on CT Resident Activity Tracking Resident Involvement: Resident Care Provided Care Provided: Adult [facility]
--- NOTE | 2020-09-01 17:59 | Billing Data ---
Date of Service September 01, 2020 Coding Level of Care Code D/C Day Management <30 mins
== END 2020-09-01 17:10 | disposition home health service (06) | DRG 392 ==
LOC: ED 13:39 → 2W 19:50 → SUATTDRO 19:50 → 2W 20:58

== ENCOUNTER 2020-11-24 05:54 | Inpatient (IN) ==
--- NOTE | 2020-11-17 13:14 | Anesthesiology Consultation ---
Date of Service November 17, 2020 Assessment & Plan (1) Encounter for pre-operative examination: COVID Status: As of 11/17 nurse assessment, patient denies travel to endemic area, known exposure/sick contacts, or symptoms of COVID19. Preoperative COVID19 testing completed on 11/16 at [facility], results pending. Chart Review Chart Review: Acceptable Risk for Surgery and Patient NOT seen in Pre Admission Testing History Surgery Operation Date: 11/24/20 07:15 Proposed Procedures p Laparoscopic Sigmoid Colectomy, Possible Open Colectomy, Possible Colostomy - Cali Frank DO Height/Weight Height: 5 ft 8 in Weight: 117.934 kg Allergies Allergy/AdvReac Type Severity Reaction Status Date / Time morphine Allergy Severe Hives Verified 11/17/20 07:08 Medications Home Medications Medication Instructions Recorded Confirmed Last Taken amoxicillin 875 mg-potassium 1 tab PO BID 15 Days #30 tab 11/09/20 11/17/20 Unknown clavulanate 125 mg tablet sodium,potassium,mag sulfates 17.5 See Rx Instructions PO .COMPLEX 11/16/20 Unknown gram-3.13 gram-1.6 gram oral soln #354 ml Past Medical History Medical History Abscess of sigmoid colon due to diverticulitis 2019 - treated with IV abx. Alcoholism /alcohol abuse Per hospitalist note 10/06/20 patient reported he cut back on drinking from 15/daily to 3-4/day recently. Cerebral palsy "mild" walks without difficulty. Fatty liver Kidney stones no surgical intervention Sigmoid diverticulitis Admitted 08/28/20 with complicated diverticulitis with microperf treated with ABX. Admitted again 10/05/20, again tx with ABX. Past Family History Family History Other No family history of adverse response to anesthesia Past Surgical History Surgical History No history of previous surgery Social History Smoking Status: Current every day smoker tobacco type: cigarettes Smoking cigarettes per day: 20 Do You Dip or Chew Tobacco: Yes (2 cans/day (advised)) Hx Alcohol Use: Yes Alcohol type: beer alcohol intake frequency: 3 or more drinks per day Hx Substance Use: No substance use type: does not use Testing Laboratory Results 10/08/20 WBC: 4.65 H/H: 13.6/40.8 PLATELETS: 209 10/09/20 SODIUM: 140 POTASSIUM: 3.8 CHLORIDE: 109 CO2: 26 BUN: 7 CREATININE: 0.92 GLUCOSE: 107 10/05/20 PT: 11.0 PTT: 28.4 INR: 1.0 Electrocardiogram Date: 10/05/20 Findings: + NSR @ (94bpm) Chest X-Ray Date: 10/05/20 IMPRESSION: Mild diffuse interstitial thickening and subtle hazy appearance to the right midlung zone. This could represent a mild developing pneumonitis. *done in ED prior to admission. Lungs noted to be CTA prior to discharge, no pulmonary complaints during admission.
[2020-11-24] MEDS ORDERED: LR 15ML/HR IV SCH (06:00)
[2020-11-24] MEDS ORDERED: ERTAPENEM SODIUM 1,000 MG in SODIUM CHLORIDE 0.9% 50 ML IV SCH (06:00)
[2020-11-24] MEDS ORDERED: SUCCINYLCHOLINE CHLORIDE 20 MG/ML 10 ML VIAL IV ONE (06:27)
[2020-11-24] MEDS ORDERED: NEOSTIGMINE METHYLSULFATE 5 MG/5 ML SYR ONE (06:27)
[2020-11-24] MEDS ORDERED: MIDAZOLAM HCL 1 MG/ML 2ML VIAL ONE (06:27)
[2020-11-24] MEDS ORDERED: GLYCOPYRROLATE 0.2 MG/ML VIAL ONE (06:27)
[2020-11-24] MEDS ORDERED: DEXAMETHASONE SOD INJ 4 MG/ML VIAL ONE (06:27)
[2020-11-24] MEDS ORDERED: PROPOFOL IV EMULSION 10 MG/ML 20 ML VIAL IV ONE ×4 (06:27→11:13)
[2020-11-24] MEDS ORDERED: ONDANSETRON INJ 2 MG/ML 2 ML VIAL ONE (06:27)
[2020-11-24] MEDS ORDERED: CISATRACURIUM BESYLATE IV SOLN 2 MG/ML 10 ML VIAL IV ONE ×2 (06:27→09:06)
[2020-11-24] MEDS ORDERED: fentaNYL citrate 100 MCG/2 ML VIAL ONE ×3 (06:27→09:58)
[2020-11-24] MEDS ORDERED: LIDOCAINE HCL 2% 2 ML VIAL/AMP(20MG/ML) INFIL ONE (06:27)
--- NOTE | 2020-11-24 06:46 | History & Physical Bridge Note ---
Date of Service November 24, 2020 History & Physical Bridge Note I have examined the patient, reviewed the History & Physical and in the interval since the performance of the History & Physical I have noted the following changes of clinical significance: no changes noted
[2020-11-24] MEDS ORDERED: BUPIVACAINE/EPINEPHRINE 0.5% MPF 1:200,000 30 ML VIAL ONE (07:05)
[2020-11-24] MEDS ORDERED: HYDROmorphone INJ 1 MG/ML SYRINGE ONE ×3 (07:53→09:58)
[2020-11-24] MEDS ORDERED: ATROPINE SULFATE 0.1 MG/ML 10ML SYR IV PRN (08:55)
[2020-11-24] MEDS ORDERED: FLUMAZENIL 0.1 MG/1 ML 10 ML VIAL IV PRN (08:55)
[2020-11-24] MEDS ORDERED: ePHEDrine sulfate 50 MG/ML AMP IV PRN (08:55)
[2020-11-24] MEDS ORDERED: NALOXONE HCL 0.4 MG/1 ML VIAL/CARP IV PRN ×2 (08:55→14:50)
[2020-11-24] MEDS ORDERED: PROMETHAZINE HCL 12.5 MG in SODIUM CHLORIDE 0.9% 50 ML IV PRN (08:55)
[2020-11-24] MEDS ORDERED: ONDANSETRON INJ 2 MG/ML 2 ML VIAL IV PRN ×2 (08:55→14:50)
[2020-11-24] MEDS ORDERED: LABETALOL HCL IV 5 MG/ML 20ML IV PRN (08:55)
--- NOTE | 2020-11-24 12:20 | Post Operative Brief Note ---
PG Immediate Post Op with CF Date of Surgery November 24, 2020 Pre & Post Diagnosis Operation Date: 11/24/20 07:15 Pre-Op Diagnosis: Sigmoid Diverticulitus Post-Op Diagnosis: Sigmoid Diverticulitus I identified the patient and participated in the time-out.: Yes Procedure Operation Date: 11/24/20 07:15 Actual Procedures p Lararoscopic converted to open left hemicolectomy, mobilization of splenic flexure, partial omentectomy.(Not Applicable) - Cali Frank DO Surgeon Cali Frank DO Medical Data Entry Clerk Raul Santiago DO, Pascual Diamond PA-C Estimated Blood Loss 150 Findings See Below Phlegmonous left colon with multiple diverticuli Fluids 1000mL crystalloid Specimens Specimen Description: A: Left/Sigmoid colon Drains Cali Drain and Farmer Catheter Anesthesia Type General Complications none Disposition Disposition: Recovery Room
[2020-11-24] MEDS: fentaNYL citrate 100 MCG/2 ML VIAL IV PRN ×4 (12:31→12:46)
[2020-11-24] MEDS ORDERED: KETOROLAC 30 MG/ML VIAL IV ONE (12:55)
[2020-11-24] MEDS ORDERED: KETOROLAC 30 MG/ML VIAL ONE (12:59)
[2020-11-24] MEDS: HYDROmorphone INJ 0.5 MG/0.5 ML SYR IV PRN ×2 (13:07→14:15)
--- NOTE | 2020-11-24 13:52 | Anesthesiology Progress Note ---
Date of Service November 24, 2020 Anesthesia Post Procedure Vital Signs Vital Signs: Temp Pulse Pulse Resp BP Pulse Ox 11/24/20 13:40 97 H 19 114/81 98 11/24/20 13:30 36.4 C L 103 H 19 104/82 98 11/24/20 13:20 116 H 19 132/90 96 11/24/20 13:10 111 H 16 127/86 97 11/24/20 13:00 108 H 16 129/97 96 11/24/20 12:50 112 H 17 150/110 H 95 11/24/20 12:40 113 H 16 143/108 H 99 11/24/20 12:30 108 H 20 113/66 99 11/24/20 12:23 36 C L 113 H 14 127/93 99 11/24/20 06:28 36.7 C 86 18 146/86 H 96 Pain Intensity Left Lower Abdomen: Pain Intensity: 5 Abdomen: Pain Intensity: 9 Transfer of Care Handoff Completed per policy Notes Mental Status: alert / awake / arousable Patient Amnestic to Procedure: Yes Nausea / Vomiting: adequately controlled Pain: adequately controlled Airway Patency, RR, SpO2: stable & adequate BP & HR: stable & adequate Hydration State: stable & adequate Anesthetic Complications: no major complications apparent
[2020-11-24] MEDS: HYDROmorphone PCA 30 MG/30 ML IV PRN (15:28)
[2020-11-24] MEDS: LACTATED RINGER'S 1,000 ML IV SCH ×2 (15:39→22:11)
[2020-11-24] MEDS: SODIUM CHLORIDE 0.9% 1000ML 1,000 ML IV SCH (15:42)
[2020-11-24] MEDS: ACETAMINOPHEN 1,000 MG/100 ML VIAL IV SCH ×2 (16:16→23:11)
[2020-11-24 16:19] LABS: Basophils # (auto) 0.01 K/uL (0-0.2); Basophils % (auto) 0.1 %; Hematocrit (blood only) 46.2 % (42-52); Hemoglobin 16.1 g/dL (14.0-18.0); Immature Granulocytes # (auto) 0.02 K/uL (0.00-0.02); Immature Granulocytes % (auto) 0.1 %; Lymphocytes # (auto) 0.94 K/uL (1.2-3.4); Lymphocytes % (auto) 6.7 %; Mean Corpuscular Hemoglobin 32.6 pg (25-34); Mean Corpuscular Hgb Conc 34.8 g/dL (32-36); Mean Corpuscular Volume 93.5 fL (80-100); Mean Platelet Volume 10.8 fL (7.4-10.4); Monocytes # (auto) 1.54 K/uL (0.11-0.59); Neutrophils # (auto) 11.44 K/uL (1.4-6.5); Neutrophils % (auto) 82.1 %; Platelet Count 231 K/uL (130-400); RDW Coefficient of Variation 12.7 % (11.5-14.5); RDW Standard Deviation 43.1 fL (36.4-46.3); Red Blood Count 4.94 M/uL (4.7-6.1); White Blood Count 13.95 K/uL (4.8-10.8)
[2020-11-24 16:39] LABS: Albumin Level 2.4 gm/dl (3.4-5.0); BUN Creatinine Ratio 13.7 (10-20); Creatinine Clr Calc Pharmacy 132.5 ml/min; Est GFR (African American) 118.6; Est GFR (Non-African American) 102.3; Magnesium 1.8 mg/dl (1.8-2.4); Potassium 4.6 mmol/L (3.5-5.1)
[2020-11-24 16:42] LABS: Albumin Globulin Ratio 0.7 (0.9-2); Bilirubin,Total 1.5 mg/dl (0.2-1); Globulin 3.6 gm/dl (2.5-4.0); Phosphorus 3.5 mg/dl (2.5-4.9)
--- NOTE | 2020-11-24 22:19 | Hospitalist Consultation ---
Date of Consultation November 24, 2020 Assessment & Plan (1) Diverticular disease of intestine with perforation and abscess: Admitted S/P hemicolectomy. Received ertapenem. will recommend 4-5 days total of ertapenem given purulent drainage noted on colonoscopy. Patient is tachycardic for the moment, will closely monitor for now. Patient just had surgery. (2) Alcohol abuse: reported 3-4/daily down from 15/day last year May require gabapentin taper, will hold for now as patient is drowsy. monitor for withdrawal -- none last admission (3) Cerebral palsy: noted History of Present Illness Reason for Consultation: Acute diverticulitis/ Alcoholism Attending Physician: Cali Frank, History of Present Illness 40 year old male with PMHx of alcohol abuse, fatty liver, kidney stones, sigmoid diverticulitis, morbid obesity, chewing tobacco, diverticular disease of intestine with perforation and abscess, cerebral palsy and herpes zoster presented for worsening abdominal pain with associated progression of diverticulitis with regards to inflammatory change and bowel wall thickening of descending colon/proximal sigmoid colon. He has had multiple hospitalizations for the same in the past and was most recently discharged on a course of augmentin PO which was completed prior to his admission. Earlier, he had been on IV Ertapenem in August. He reports he was compliant with augmentin and only missed 2 doses. He was admitted and had a colonscopy which showed purulent drainage in the diverticulum and then had hemicolectomy by surgery. 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 Currently still smoking/chewing tobacco on occasion. No need for nicotine patch at this time. Also cut back on drinking from 15/daily to 3-4/day recently. Not on any medications as an outpatient. Allergies Allergy/AdvReac Type Severity Reaction Status Date / Time morphine Allergy Severe Hives Verified 11/24/20 06:11 Home Medications Medication Instructions Recorded Confirmed Type amoxicillin 875 mg-potassium 1 tab PO BID 15 Days #30 tab 11/09/20 11/24/20 Rx clavulanate 125 mg tablet Patient History Medical History Abscess of sigmoid colon due to diverticulitis 2019 - treated with IV abx. Alcoholism /alcohol abuse Per hospitalist note 10/06/20 patient reported he cut back on drinking from 15/daily to 3-4/day recently. Cerebral palsy "mild" walks without difficulty. Fatty liver Kidney stones no surgical intervention Sigmoid diverticulitis Admitted 08/28/20 with complicated diverticulitis with microperf treated with ABX. Admitted again 10/05/20, again tx with ABX. Surgical History H/O hemicolectomy (11/24/20) Lararoscopic converted to open left hemicolectomy, mobilization of splenic flexure, partial omentectomy. Dr. Frank 11/24/2020 History of colonoscopy No history of previous surgery Family History Other No family history of adverse response to anesthesia Social History Smoking Status: Current every day smoker Tobacco Type: Cigarettes Cigarettes Per Day: 20; Second Hand Exposure: Yes; Do You Dip or Chew Tobacco: Yes (2 cans/day (advised)); Tobacco Cessation Education Requested by Patient: No Hx Alcohol Use: Yes Alcohol type: beer Hx Substance Use: No Preferred Language: [place] Communication Ability: Effective Clinical Research Spec Required: No Beliefs That Will Affect Care: None marital status: Single Current Living Situation: Parent Current Living Situation Comment: Dad Other Information That Helps Us Care for You: No Feels Safe at Home: Yes Safety Concerns: Feels Safe At This Time Assistive Devices: None Review of Systems Review of Systems: All systems reviewed & are unremarkable except as noted in HPI & below Results & Data Results & Data ([place]) Vital Signs (Past 12 Hours) Vital Signs Temp Pulse Pulse Resp BP Pulse Ox 11/24/20 19:30 36.9 C 103 H 16 113/82 95 11/24/20 18:33 36.7 C 103 H 18 116/81 95 11/24/20 17:47 36.8 C 102 H 18 118/74 95 11/24/20 16:43 36.4 C L 107 H 18 138/83 95 11/24/20 15:50 37 C 108 H 18 151/77 H 91 11/24/20 15:13 37.1 C 91 H 18 129/82 94 11/24/20 14:40 37.1 C 101 H 18 127/88 96 11/24/20 14:30 102 H 18 105/81 96 11/24/20 14:20 37.2 C 103 H 19 109/77 97 11/24/20 14:10 104 H 17 108/85 98 11/24/20 14:00 102 H 15 117/79 98 11/24/20 13:50 100 H 18 118/79 98 11/24/20 13:40 97 H 19 114/81 98 11/24/20 13:30 36.4 C L 103 H 19 104/82 98 11/24/20 13:20 116 H 19 132/90 96 11/24/20 13:10 111 H 16 127/86 97 11/24/20 13:00 108 H 16 129/97 96 11/24/20 12:50 112 H 17 150/110 H 95 11/24/20 12:40 113 H 16 143/108 H 99 11/24/20 12:30 108 H 20 113/66 99 11/24/20 12:23 36 C L 113 H 14 127/93 99 PG Care Time/CCT Total # of Minutes Spent Total Time Spent with Patient: Total time spent is greater than 50% in coordination of care (as documented) at patient's floor/unit and/or counseling patient: Coding Level of Care Code 90686 Inpt Consult Level 4 Diagnoses Diverticular disease of intestine with perforation and abscess K57.80 Alcohol abuse F10.10 Cerebral palsy G80.9 Cerebral palsy type: unspecified type Time Spent (min) 50 (1) Cerebral palsy Cerebral palsy type: unspecified type Qualified Code(s): G80.9 - Cerebral palsy, unspecified
[2020-11-25] MEDS: LACTATED RINGER'S 1,000 ML IV SCH ×3 (04:53→18:15)
[2020-11-25] MEDS: ACETAMINOPHEN 1,000 MG/100 ML VIAL IV SCH ×3 (05:53→22:35)
[2020-11-25 06:55] LABS: Basophils # (auto) 0.01 K/uL (0-0.2); Basophils % (auto) 0.1 %; Eosinophils # (auto) 0.07 K/uL (0-0.5); Eosinophils % (auto) 0.6 %; Hematocrit (blood only) 43.7 % (42-52); Hemoglobin 14.6 g/dL (14.0-18.0); Immature Granulocytes # (auto) 0.04 K/uL (0.00-0.02); Immature Granulocytes % (auto) 0.3 %; Lymphocytes # (auto) 2.04 K/uL (1.2-3.4); Lymphocytes % (auto) 17.2 %; Mean Corpuscular Hemoglobin 32.1 pg (25-34); Mean Corpuscular Hgb Conc 33.4 g/dL (32-36); Mean Platelet Volume 11.3 fL (7.4-10.4); Monocytes # (auto) 1.29 K/uL (0.11-0.59); Monocytes % (auto) 10.9 %; Neutrophils # (auto) 8.42 K/uL (1.4-6.5); Neutrophils % (auto) 70.9 %; Platelet Count 220 K/uL (130-400); RDW Coefficient of Variation 12.7 % (11.5-14.5); RDW Standard Deviation 44.1 fL (36.4-46.3); Red Blood Count 4.55 M/uL (4.7-6.1); White Blood Count 11.87 K/uL (4.8-10.8)
[2020-11-25 07:16] LABS: BUN Creatinine Ratio 18.1 (10-20); Calcium 7.8 mg/dl (8.5-10.1); Creatinine Clr Calc Pharmacy 119.6 ml/min; Est GFR (African American) 104.8; Est GFR (Non-African American) 90.4; Potassium 4.9 mmol/L (3.5-5.1)
--- NOTE | 2020-11-25 08:23 | Surgery Progress Note ---
Date of Service November 25, 2020 Assessment & Plan (1) Diverticulitis large intestine: POD 1 left hemicolectomy UOP marginal, will be starting on clears today, cont IVF at 150 cc/hr start Lovenox d/c gambino labs stable Admission and Anticipated Discharge Date Admission Date: November 24, 2020 Supervising Physician Co-Signing Physician Notes I personally saw and evaluated the patient with Pascual Diamond PA-C and agree with the assessment and plan. 40 yo male POD#1 Laparoscopic converted to open left/sigmoid colectomy, takedown of splenic flexure, partial omentectomy -Keep IVF -Start Clears -[employer]ING REPA[employer]ER, ATC Tylenol -D/C Gambino later today -DVT prophylaxis with Lovenox -Encourage ambulation/IS Subjective pain managed with [employer]ING [employer]PA[employer], no nausea Physical Exam Gastrointestinal (Abdomen): Inspection/Auscultation: + abdominal surgical incision (dressing dry, intact); abdomen not distended Percussion/Palpation: abdomen soft Results & Data ([facility]) Vital Signs (Past 12 Hours) Vital Signs Temp Pulse Resp BP Pulse Ox 11/25/20 07:26 37.0 C 90 16 138/89 96 11/25/20 03:35 36.7 C 102 H 16 123/87 92 11/25/20 03:24 36.4 C L 98 H 16 125/89 98 11/24/20 23:16 36.8 C 103 H 16 137/98 94 11/24/20 23:10 36.9 C 107 H 18 130/95 97 PG Care Time/CCT Total # of Minutes Spent Total Time Spent with Patient: Total time spent is greater than 50% in coordination of care (as documented) at patient's floor/unit and/or counseling patient: Coding Level of Care Code None Diagnoses Diverticulitis large intestine K57.20 Diverticulitis bleeding: without bleeding Diverticulitis complication: with abscess (1) Diverticulitis large intestine Diverticulitis bleeding: without bleeding Diverticulitis complication: with abscess Qualified Code(s): K57.20 - Diverticulitis of large intestine with perforation and abscess without bleeding
[2020-11-25] MEDS: ENOXAPARIN INJ 40 MG/0.4 ML SYR SQ SCH (12:36)
[2020-11-25] MEDS: SODIUM CHLORIDE 0.9% 1000ML 1,000 ML IV SCH (14:03)
--- NOTE | 2020-11-25 14:44 | Operative Report ---
PG Post Operative Report Pre & Post Diagnosis Operation Date: 11/24/20 07:15 Pre-Op Diagnosis: Sigmoid Diverticulitus Post-Op Diagnosis: Sigmoid Diverticulitus I identified the patient and participated in the time-out.: Yes Procedure Operation Date: 11/24/20 07:15 Actual Procedures p Laparoscopic converted to open left/sigmoid colectomy, lysis of adhesions, mobilization of splenic flexure, partial omentectomy - Cali Frank DO Surgeon Cali Frank DO Billing Adjudicator Raul Santiago DO, Pascual Diamond PA-C Estimated Blood Loss 150 Findings See Below Phlegmonous left and sigmoid colon with multiple diverticuli present Specimens Left/Sigmoid colon to pathology Drains 19Fr Acli drain in pelvis/left paracolic gutter Anesthesia Type General Complications none Disposition Disposition: Recovery Room Indications 40 yo male with multiple episodes of diverticulitis Description of Procedure The patient was brought to the operating room and placed in the supine position with both arms tucked. At this time he underwent general endotracheal anesthesia without any problems. He was given appropriate pre-operative antibiotics. He was then placed in lithotomy position. His abdomen prepped and draped in the usual sterile fashion. A timeout was called, the procedure was verified as Laparoscopic sigmoid colectomy, possible open, possible ostomy. Surgical, nursing and anesthesia teams agreed and the procedure was begun. After injection of 0.25% Marcaine with epinephrine, an infraumbilical vertical incision was made and carried down to the fasica using S-retractors. The fascia was elevated with a Ronald clamp and incised using a #11 blade scalpel. Two 0- Vicryl stay sutures were placed and the peritoneum was then entered bluntly and no adhesions to the abdominal wall were noted. Camacho trocar was placed and pneumoperitoneum was established. Laparoscope was introduced. At this time a 12mm port was placed in the RLQ and 5mm port placed in the RUQ, both under direct visualization. The patient was then placed in Trendelenburg position and rotated to the right. The abdomen was inspected and the sigmoid and left colon was adhered to the lateral peritoneum. This was very phlegmonous and difficult to separate from the abdominal wall. We did make some progress using a combination of blunt dissection and sharp dissection with the Harmonic scalpel, but at this point decided we should convert to an open procedure. Midline incision was made using a #10 blade scalpel and carried down the fascia which was incised in the midline with electrocautery. The incision was then opened up through the peritoneum using free hand to protect abdominal organs. At this point we freed up the sigmoid and left colon from the abdominal wall and then mobilized the sigmoid and left colon laterally by incising the line of Toldt. We then proceeded to find our distal point of resection at the sacral promontory. Window was made in the mesentery and the colon was taken using a 60mm black load DENNY stapler. We then used the ligasure device to begin resecting the mesentery of the sigmoid and left colon. The ureter was identified and protected. His diverticular disease and inflamed colon reached proximally to almost the splenic flexure. Due to this we proceeded to perform a left hemicolectomy as well. The splenic flexure was released using blunt dissection and electrocautery. The omentum was also taken partially off of the transverse colon for approximately half its length. We then transcected the transverse colon just distal to the left branch of the middle colic artery using 60mm DENNY purple load stapler. The rest of the mesentery was taken using the Ligasure device. The specimen was then passed off and labeled as left/sigmoid colon. At this point the proximal colon was then mobilized by freeing the omentum off of the transverse colon. At this point there was adequate length to reach the distal colon without tension. My accounting manager assistant controller then went below and used sequential rectal dilators until a 28mm dilator easily passed into the rectum. At this point the proximal colon was opened and 28mm anvil was placed and secured using a 2-0 silk purse string suture. The EEA stapler was introduced into the rectum and the spike was deployed just anterior to the staple line from previous DENNY transection. Anvil was placed onto the spike and EEA was closed and fired. EEA was removed and 2 intact donuts were found intact. At this point the anterior staple line was oversewn using 2-0 Silk suture in a Lembert fashion. The anastomosis was leak tested and no air bubble were seen with area proximal to anastomosis clamped. At this point the abdomen was irrigated until clear with multiple liters of warm saline. Hemostasis was achieved using electrocautery and was complete. A 19 Fr Cali drain was placed in the pelvis and left paracolic gutter and brought out through the RLQ stab incision and secured with a 2-0 Nylon. The incision was then closed at the fascial level using two 1 looped PDS sutures in a running fashion starting from the superior and inferior portion of the incision and tied together just below the umbilicus. The skin was then closed using skin saulo. Sterile dressing was applied. Needle and sponge counts were correct x 2. At this time the patient was awoken from anesthesia and extubated having remained stable throughout the entire case. The patient was then transported to PACU in stable condition. The physician's accounting manager assistant controller was present and scrubbed for the entire case. He was critical in positioning, prepping and draping the patient, retraction and exposure, closure of the incisions and placement of the dressings. I attest to the content of the Intraoperative Record and any orders documented therein. Any exceptions are noted below.
--- NOTE | 2020-11-25 15:41 | Hospitalist Progress Note ---
Date of Service November 25, 2020 Assessment & Plan (1) Diverticular disease of intestine with perforation and abscess: Admitted S/P hemicolectomy. - Received ertapenem. - Stopped per primary team on 11/24. - Post-op care per primary team (2) Alcohol abuse: Reported 3-4/daily down from 15/day last year. - May require gabapentin taper, will hold for now as patient has no signs/symptoms of withdrawal. (3) Cerebral palsy: History noted. Per notes, just some mild difficulty with walking. - No inpatient needs (4) DVT prophylaxis: Lovenox 40 mg SQ daily Given medical stability, Hospital Medicine team will sign off. Please re-consult with any questions or concerns. Thank you for letting us assist in the care of this patient! Admission and Anticipated Discharge Date Admission Date: November 24, 2020 Subjective Having some abdominal pain when sitting bedside. Reports no fevers/chills, chest pain, shortness of breath, nausea, or vomiting. Physical Exam Constitutional: WD/WN, vitals as above + acute distress Eyes: EOM intact bilaterally; no conjunctival abnormality ENMT: external ear and nose normal, oropharynx normal Neck: trachea midline, no thyromegaly normal visual inspection Respiratory: normal respiratory effort, lungs clear to auscultation no respiratory distress Cardiovascular: RRR, no murmur, no edema Gastrointestinal (Abdomen): Inspection/Auscultation: abdomen normal to inspection, normal bowel sounds, + abdominal surgical scar, + abdominal surgical incision and + abdominal surgical drain present; abdomen not distended Musculoskeletal: no cyanosis or clubbing, extremities motor strength 5/5 Skin: no rashes, warm and dry Neurologic: moves all extremities and awake Psychiatric: Orientation: alert, oriented to person and cooperative Results & Data Results & Data ([facility]) Vital Signs (Past 12 Hours) Vital Signs Temp Pulse Resp BP Pulse Ox 11/25/20 15:27 36.8 C 97 H 14 130/85 96 11/25/20 11:37 36.7 C 105 H 16 149/89 H 94 11/25/20 07:26 37.0 C 90 16 138/89 96 PG Care Time/CCT Total # of Minutes Spent Total Time Spent with Patient: Total time spent is greater than 50% in coordination of care (as documented) at patient's floor/unit and/or counseling patient: Coding Level of Care Code 42168 Subseq Hosp Care Lvl 2 Diagnoses Diverticular disease of intestine with perforation and abscess K57.80 Alcohol abuse F10.10 Cerebral palsy G80.9 Cerebral palsy type: unspecified type DVT prophylaxis Z29.9 (1) Cerebral palsy Cerebral palsy type: unspecified type Qualified Code(s): G80.9 - Cerebral palsy, unspecified
[2020-11-26] MEDS: LACTATED RINGER'S 1,000 ML IV SCH ×4 (00:03→22:43)
[2020-11-26] MEDS: ACETAMINOPHEN 1,000 MG/100 ML VIAL IV SCH ×3 (06:19→22:37)
[2020-11-26 06:58] LABS: Basophils # (auto) 0.02 K/uL (0-0.2); Basophils % (auto) 0.2 %; Eosinophils # (auto) 0.21 K/uL (0-0.5); Eosinophils % (auto) 2.2 %; Hematocrit (blood only) 35.7 % (42-52); Hemoglobin 11.9 g/dL (14.0-18.0); Immature Granulocytes # (auto) 0.02 K/uL (0.00-0.02); Immature Granulocytes % (auto) 0.2 %; Lymphocytes # (auto) 1.64 K/uL (1.2-3.4); Mean Corpuscular Hgb Conc 33.3 g/dL (32-36); Mean Platelet Volume 10.8 fL (7.4-10.4); Monocytes % (auto) 8.3 %; Neutrophils # (auto) 6.95 K/uL (1.4-6.5); Neutrophils % (auto) 72.1 %; Platelet Count 209 K/uL (130-400); RDW Coefficient of Variation 12.7 % (11.5-14.5); RDW Standard Deviation 43.9 fL (36.4-46.3); Red Blood Count 3.72 M/uL (4.7-6.1); White Blood Count 9.64 K/uL (4.8-10.8)
[2020-11-26 07:32] LABS: BUN Creatinine Ratio 17.8 (10-20); Calcium 8.6 mg/dl (8.5-10.1); Est GFR (African American) 130.9; Est GFR (Non-African American) 112.9; Potassium 4.3 mmol/L (3.5-5.1)
[2020-11-26] MEDS: ENOXAPARIN INJ 40 MG/0.4 ML SYR SQ SCH (08:06)
--- NOTE | 2020-11-26 11:02 | Surgery Progress Note ---
Date of Service November 26, 2020 Assessment & Plan (1) Diverticulitis large intestine: POD#2 left hemicolectomy WBC 9.6, Cr: 0.78, Hb.9. Patients VSS and he is afebrile Tolerating clear liquid diet without n/v Continue current pain regimen for today Will decrease IVF rate as patient voiding and Cr downtrending Encourage ongoing ambulation throughout the day and use of IS Awaiting return of bowel function until further diet advancement Admission and Anticipated Discharge Date Admission Date: November 24, 2020 Supervising Physician Co-Signing Physician Notes I personally saw and evaluated the patient with Stephany Kaiser PA-C and agree with the assessment and plan. 40 yo male POD#2 Laparoscopic converted to open left/sigmoid colectomy, takedown of splenic flexure, partial omentectomy -Decrease IVF, keep LR for today -Continue Clears, no bowel function yet -CNA INSTRUCTOR, ATC Tylenol -Hgb did drop to 11.9, likely dilutional, will repeat in AM -Continue drain, serosang -DVT prophylaxis with Lovenox -Encourage ambulation/IS -Continue PT/OT evals Subjective Patient is feeling fairly well. Has some expected post operative pain that is being managed with the CNA INSTRUCTOR. Said he was up in the chair and ambulating some yesterday. He is tolerating clears without nausea/vomiting. He has voided since gambino removed. No BM or flatus yet. Physical Exam Physical Exam: awake/alert Respiratory: normal respiratory effort Gastrointestinal (Abdomen): Inspection/Auscultation: + abdominal surgical incision (surgical dressings c/d/i) and + abdominal surgical drain present (serosang. ); abdomen not distended Percussion/Palpation: + abdomen tender (expected uziel-incisional ttp) and abdomen soft Results & Data ([facility]) Vital Signs (Past 12 Hours) Vital Signs Temp Pulse Resp BP Pulse Ox 11/26/20 07:46 36.3 C L 92 H 18 132/88 16 L 11/26/20 04:10 36.9 C 95 H 15 148/90 H 95 11/26/20 00:03 36.4 C L 99 H 15 134/77 96 11/25/20 23:04 36.9 C 103 H 14 138/83 96 PG Care Time/CCT Total # of Minutes Spent Total Time Spent with Patient: Total time spent is greater than 50% in coordination of care (as documented) at patient's floor/unit and/or counseling patient: Coding Level of Care Code None Diagnoses Diverticulitis large intestine K57.20 Diverticulitis bleeding: without bleeding Diverticulitis complication: with abscess (1) Diverticulitis large intestine Diverticulitis bleeding: without bleeding Diverticulitis complication: with abscess Qualified Code(s): K57.20 - Diverticulitis of large intestine with perforation and abscess without bleeding
[2020-11-26] MEDS: HYDROmorphone PCA 30 MG/30 ML IV PRN (15:41)
[2020-11-26] MEDS: SODIUM CHLORIDE 0.9% 1000ML 1,000 ML IV SCH (16:17)
[2020-11-27] MEDS: ACETAMINOPHEN 1,000 MG/100 ML VIAL IV SCH (06:03)
[2020-11-27 06:14] LABS: Basophils # (auto) 0.02 K/uL (0-0.2); Basophils % (auto) 0.2 %; Eosinophils # (auto) 0.36 K/uL (0-0.5); Eosinophils % (auto) 4.4 %; Hematocrit (blood only) 34.9 % (42-52); Hemoglobin 11.9 g/dL (14.0-18.0); Immature Granulocytes # (auto) 0.02 K/uL (0.00-0.02); Immature Granulocytes % (auto) 0.2 %; Lymphocytes # (auto) 1.62 K/uL (1.2-3.4); Mean Corpuscular Hgb Conc 34.1 g/dL (32-36); Mean Corpuscular Volume 93.8 fL (80-100); Mean Platelet Volume 10.3 fL (7.4-10.4); Monocytes # (auto) 0.68 K/uL (0.11-0.59); Monocytes % (auto) 8.4 %; Neutrophils # (auto) 5.42 K/uL (1.4-6.5); Neutrophils % (auto) 66.8 %; Platelet Count 258 K/uL (130-400); RDW Coefficient of Variation 12.5 % (11.5-14.5); Red Blood Count 3.72 M/uL (4.7-6.1); White Blood Count 8.12 K/uL (4.8-10.8)
[2020-11-27 06:42] LABS: BUN Creatinine Ratio 17.2 (10-20); Calcium 7.9 mg/dl (8.5-10.1); Creatinine Clr Calc Pharmacy 205.4 ml/min; Est GFR (African American) 145.8; Est GFR (Non-African American) 125.8; Potassium 3.8 mmol/L (3.5-5.1)
[2020-11-27] MEDS ORDERED: KETOROLAC 30 MG/ML VIAL IV ONE (07:56)
--- NOTE | 2020-11-27 08:02 | Surgery Progress Note ---
Date of Service November 27, 2020 Assessment & Plan (1) Diverticulitis large intestine: POD 3 left hemicolectomy waiting return of bowel function keep on clears, add protonix cont PATIENT SERVICE TECHNICIAN PST, add Toradol ambulating as above. feeling much better today. labs reviewed. awaiting bowel fx. Admission and Anticipated Discharge Date Admission Date: November 24, 2020 Subjective still having pain and using PATIENT SERVICE TECHNICIAN PST, no nausea but has "burning" sensation across mid to upper abdomen after clears, no flatus or BM Physical Exam Gastrointestinal (Abdomen): Inspection/Auscultation: + abdomen distended, + abdominal surgical incision (dry) and + abdominal surgical drain present (mostly serous) Percussion/Palpation: abdomen soft Results & Data ([facility]) Vital Signs (Past 12 Hours) Vital Signs Temp Pulse Resp BP Pulse Ox 11/26/20 22:59 36.8 C 93 H 14 176/96 H 98 PG Care Time/CCT Total # of Minutes Spent Total Time Spent with Patient: Total time spent is greater than 50% in coordination of care (as documented) at patient's floor/unit and/or counseling patient: Coding Level of Care Code None Diagnoses Diverticulitis large intestine K57.20 Diverticulitis bleeding: without bleeding Diverticulitis complication: with abscess (1) Diverticulitis large intestine Diverticulitis bleeding: without bleeding Diverticulitis complication: with abscess Qualified Code(s): K57.20 - Diverticulitis of large intestine with perforation and abscess without bleeding
[2020-11-27] MEDS: ENOXAPARIN INJ 40 MG/0.4 ML SYR SQ SCH (08:08)
[2020-11-27] MEDS: PANTOprazole 40 MG TAB PO SCH (08:32)
[2020-11-27] MEDS: D5W AND 1/2NSS + 20MEQ KCL 20 MEQ/1,000 ML BAG IV SCH ×2 (08:33→21:24)
[2020-11-27] MEDS: SODIUM CHLORIDE 0.9% 1000ML 1,000 ML IV SCH (15:03)
[2020-11-27] MEDS: KETOROLAC 30 MG/ML VIAL IV PRN ×2 (15:10→21:24)
[2020-11-28] MEDS: KETOROLAC 30 MG/ML VIAL IV PRN ×3 (02:30→20:27)
--- NOTE | 2020-11-28 05:58 | Surgery Progress Note ---
Date of Service November 28, 2020 Assessment & Plan (1) Diverticular disease of intestine with perforation and abscess: Postoperative #4 left hemicolectomy Continue liquid diet until improved bowel function noted Continue hydration with IV fluids until certain oral intake is adequate Encourage use of incentive spirometer Encourage ambulation Lovenox is in place for DVT prevention as above. doing well clinically. awating bowel fx will d/c MARINE TOWER OPERATOR and add oral pain meds stay with clears for now. JUAN DAVID looks good. Admission and Anticipated Discharge Date Admission Date: November 24, 2020 Subjective Patient is resting in bed. He notes some soreness from his abdominal incision. He denies cough, fever, or shortness of breath. He denies having any bowel movement since his surgery but is passing flatus. He denies any difficulty with urination. He has ambulated short distances. Physical Exam Constitutional: well developed and well nourished; no acute distress Neck: trachea midline Respiratory: normal respiratory effort; no respiratory distress and no labored breathing Gastrointestinal (Abdomen): Abdomen is tender to palpation near surgical incisions. Bowel sounds are present but hypoactive. Incision is intact, clean, and dry Results & Data ([facility]) Vital Signs (Past 12 Hours) Vital Signs Temp Pulse Resp BP Pulse Ox 11/28/20 02:13 36.7 C 75 16 136/85 96 11/27/20 22:04 36.8 C 81 22 138/86 100 PG Care Time/CCT Total # of Minutes Spent Total Time Spent with Patient: Total time spent is greater than 50% in coordination of care (as documented) at patient's floor/unit and/or counseling patient: Coding Level of Care Code None Diagnoses Diverticular disease of intestine with perforation and abscess K57.80
[2020-11-28] MEDS: CEROVITE ADV FORMULA TAB PO SCH (09:22)
[2020-11-28] MEDS: PANTOprazole 40 MG TAB PO SCH (09:22)
[2020-11-28] MEDS: ENOXAPARIN INJ 40 MG/0.4 ML SYR SQ SCH (09:22)
[2020-11-28] MEDS: oxyCODONE HCL IR 5 MG TAB (IMMEDIATE RELEASE) PO PRN ×2 (12:27→18:22)
[2020-11-28] MEDS: D5W AND 1/2NSS + 20MEQ KCL 20 MEQ/1,000 ML BAG IV SCH (12:28)
[2020-11-29] MEDS: oxyCODONE HCL IR 5 MG TAB (IMMEDIATE RELEASE) PO PRN ×3 (00:24→17:32)
[2020-11-29] MEDS: D5W AND 1/2NSS + 20MEQ KCL 20 MEQ/1,000 ML BAG IV SCH ×2 (00:25→15:32)
[2020-11-29] MEDS: KETOROLAC 30 MG/ML VIAL IV PRN ×3 (02:14→19:38)
--- NOTE | 2020-11-29 06:25 | Surgery Progress Note ---
Date of Service November 29, 2020 Assessment & Plan (1) Diverticular disease of intestine with perforation and abscess: Postoperative #5 left hemicolectomy Maintain liquid diet until improved bowel function noted Continue hydration with IV fluids until certain oral intake is adequate Encourage use of incentive spirometer Encourage ambulation Continue pain control measures Lovenox is in place for DVT prevention as above. pt resting comfortably. no acute issues. awaiting bowel fx to return. continue to increase activity. Admission and Anticipated Discharge Date Admission Date: November 24, 2020 Subjective Patient notes continued pain at his surgical site. He is passing flatus but has not had a bowel movement since surgery. He is taking liquids which he is tolerating without nausea. He denies any voiding difficulties. He notes he has not ambulated very much since his surgery due to pain issues. Physical Exam Constitutional: well developed and well nourished; no acute distress Respiratory: normal respiratory effort; no respiratory distress and no labored breathing Gastrointestinal (Abdomen): Abdomen is tender to palpation near incision. Bowel sounds are present. Minimal distention noted. JUAN DAVID drain is in place. Results & Data ([facility]) Vital Signs (Past 12 Hours) Vital Signs Temp Pulse Resp BP Pulse Ox 11/28/20 22:19 36.5 C 76 16 131/90 96 PG Care Time/CCT Total # of Minutes Spent Total Time Spent with Patient: Total time spent is greater than 50% in coordination of care (as documented) at patient's floor/unit and/or counseling patient: Coding Level of Care Code None Diagnoses Diverticular disease of intestine with perforation and abscess K57.80
[2020-11-29] MEDS: PANTOprazole 40 MG TAB PO SCH (09:08)
[2020-11-29] MEDS: CEROVITE ADV FORMULA TAB PO SCH (09:08)
[2020-11-29] MEDS: ENOXAPARIN INJ 40 MG/0.4 ML SYR SQ SCH (09:09)
[2020-11-30] MEDS: oxyCODONE HCL IR 5 MG TAB (IMMEDIATE RELEASE) PO PRN ×2 (01:40→22:43)
[2020-11-30] MEDS: D5W AND 1/2NSS + 20MEQ KCL 20 MEQ/1,000 ML BAG IV SCH (04:36)
[2020-11-30] MEDS: KETOROLAC 30 MG/ML VIAL IV PRN ×3 (06:03→19:26)
--- NOTE | 2020-11-30 07:36 | Surgery Progress Note ---
Date of Service November 30, 2020 Assessment & Plan (1) Diverticular disease of intestine with perforation and abscess: Postoperative #6 left hemicolectomy full liquids tolerating po analgesics awaiting BM as above. doing well. JUAN DAVID looks good. will advance to full liquids. awaiting return of bowel fx. incsision looks good. Admission and Anticipated Discharge Date Admission Date: November 24, 2020 Subjective continues to have flatus, no BM, no nausea, pain improved Physical Exam Gastrointestinal (Abdomen): Inspection/Auscultation: + abdominal surgical incision (clean, dry, no erythema); abdomen not distended Percussion/Palpation: abdomen soft Results & Data ([facility]) Vital Signs (Past 12 Hours) Vital Signs Temp Pulse Resp BP Pulse Ox 11/30/20 07:00 36.8 C 64 16 136/84 97 11/29/20 22:27 36.7 C 72 16 145/91 H 96 PG Care Time/CCT Total # of Minutes Spent Total Time Spent with Patient: Total time spent is greater than 50% in coordination of care (as documented) at patient's floor/unit and/or counseling patient: Coding Level of Care Code None Diagnoses Diverticular disease of intestine with perforation and abscess K57.80
[2020-11-30] MEDS ORDERED: ACETAMINOPHEN 325 MG TAB PO PRN (08:22)
[2020-11-30] MEDS: CEROVITE ADV FORMULA TAB PO SCH (08:59)
[2020-11-30] MEDS: ENOXAPARIN INJ 40 MG/0.4 ML SYR SQ SCH (08:59)
[2020-11-30] MEDS: PANTOprazole 40 MG TAB PO SCH (08:59)
[2020-11-30] MEDS: MELATONIN 3 MG TAB PO PRN (22:43)
[2020-12-01] MEDS: KETOROLAC 30 MG/ML VIAL IV PRN (04:16)
[2020-12-01] MEDS: CEROVITE ADV FORMULA TAB PO SCH (08:51)
[2020-12-01] MEDS: ENOXAPARIN INJ 40 MG/0.4 ML SYR SQ SCH (08:51)
[2020-12-01] MEDS: PANTOprazole 40 MG TAB PO SCH (08:51)
--- NOTE | 2020-12-01 09:46 | Surgery Progress Note ---
Date of Service December 01, 2020 Assessment & Plan (1) Diverticular disease of intestine with perforation and abscess: I believe he has turned the corner will advance to low residue diet continue to increase activity likely d/c tomorrow if he tolerates diet. Admission and Anticipated Discharge Date Admission Date: November 24, 2020 Subjective pt seen. doing well. +bm last night. juan full liquids without issue Physical Exam Physical Exam: alert. nad JUAN DAVID serous. wound looks good Results & Data ([facility]) Vital Signs (Past 12 Hours) Vital Signs Temp Pulse Resp BP Pulse Ox 12/01/20 07:13 36.6 C 56 L 16 147/95 H 90 11/30/20 23:29 37.0 C 69 16 142/82 H 97 PG Care Time/CCT Total # of Minutes Spent Total Time Spent with Patient: Total time spent is greater than 50% in coordination of care (as documented) at patient's floor/unit and/or counseling patient: Coding Level of Care Code None Diagnoses Diverticular disease of intestine with perforation and abscess K57.80
[2020-12-01] MEDS: oxyCODONE HCL IR 5 MG TAB (IMMEDIATE RELEASE) PO PRN ×2 (11:46→20:12)
[2020-12-01] MEDS: MELATONIN 3 MG TAB PO PRN (20:12)
--- NOTE | 2020-12-02 08:45 | Surgery Progress Note ---
Date of Service December 02, 2020 Assessment & Plan (1) Diverticulitis: POD 8 sigmoid colectomy tolerating diet likely d/c later today Admission and Anticipated Discharge Date Admission Date: November 24, 2020 Supervising Physician Co-Signing Physician Notes I personally saw and evaluated the patient with Ady Diamond PA-C and agree with the assessment and plan. 40 yo male POD#8 Laparoscopic converted to open left/sigmoid colectomy, takedown of splenic flexure, partial omentectomy -Doing well, tolerating diet with return of bowel function -Pain control PRN -D/c home today with follow up in 1 week -D/C drain prior to discharge Subjective tolerating diet, no more BMs Physical Exam Gastrointestinal (Abdomen): Inspection/Auscultation: + abdominal surgical incision (clean, dry); abdomen not distended Percussion/Palpation: abdomen soft JUAN DAVID 20 Results & Data ([facility]) Vital Signs (Past 12 Hours) Vital Signs Temp Pulse Resp BP Pulse Ox 12/02/20 07:48 36.6 C 68 16 147/85 H 96 12/01/20 22:18 37.2 C 74 16 151/82 H 95 PG Care Time/CCT Total # of Minutes Spent Total Time Spent with Patient: Total time spent is greater than 50% in coor dination of care (as documented) at patient's floor/unit and/or counseling patient: Coding Level of Care Code None Diagnoses Diverticulitis K57.92
[2020-12-02] MEDS: PANTOprazole 40 MG TAB PO SCH (08:48)
[2020-12-02] MEDS: ENOXAPARIN INJ 40 MG/0.4 ML SYR SQ SCH (08:48)
[2020-12-02] MEDS: CEROVITE ADV FORMULA TAB PO SCH (08:48)
[2020-12-02] MEDS: oxyCODONE HCL IR 5 MG TAB (IMMEDIATE RELEASE) PO PRN (13:40)
--- NOTE | 2020-12-04 09:55 | Discharge Summary ---
Date of Service December 04, 2020 Principal Diagnosis Recurrent/persistent diverticulitis Discharge Exam Constitutional WD/WN, vitals as above Gastrointestinal (Abdomen) Inspection/Auscultation: + abdominal surgical incision (clean, dry, no erythema); abdomen not distended Percussion/Palpation: abdomen soft Discharge Data Allergies Allergy/AdvReac Type Severity Reaction Status Date / Time morphine Allergy Severe Hives Verified 11/24/20 06:11 Consultations 11/24/20 14:50 Consult Hospitalist Routine Procedures Performed Operation Date: 11/24/20 07:15 Actual Procedures p converted to open left hemicolectomy, mobilization of splenic flexure, partial omentectomy.(Not Applicable) - Cali Frank DO s Laparoscopic (Not Applicable) - Cali Frank DO Hospital Course (1) Diverticulitis: 40 y/o male with recurrent diverticulitis now requiring continued use of outpatient antibiotics was taken to the operating room for laparoscopic assisted sigmoid colectomy. He had significant phlegmonous changes requiring conversion to open procedure. He was admitted to the surgical floor, Lovenox was used for DVT prophylaxis and PULPER TENDER for pain management. His bowel function was slow to return. He was not passing flatus until POD 5. He was advanced to full liquids on day 6. He began moving his bowels on day 7 and was able to tolerate a regular diet. He was stable for discharge home on POD 8. JUAN DAVID drain was removed prior to discharge. Total Time Total Time Spent Total Time Spent (In Minutes): 15 Discharge Plan Discharge Items Patient Disposition: Home - Self-Care Reason For Visit: Sigmoid Diverticulitus Discharge Diagnosis: sigmoid colon resection Activity: Per Instructions section Lifting: No more than 10 pounds Bathing Comment: may shower; no soaking in tubs/pools Exercise/Sports: Wait until after follow-up appointment Driving/Machine Use: do not resume driving while taking narcotics for pain Non-emergency contact: Surgeon Call non-emergency contact if: you have any medication questions, your symptoms worsen, your pain is not controlled, your pain is worsening, your pain is unusual for you, your pain is concerning for you, you have a fever, your temperature is above 101.5, your wound has increased redness, your wound has increased drainage and your wound pain has increased Follow-up/Referrals: Cali Frank DO [Physician] - 12/08/20 10:30 am (Please call to schedule follow up in clinic within 1-2 weeks) PCP,NO [Primary Care Provider] - Diet: Low Fiber Addtl Attending Provider Instructions: You have surgical saulo in place that will be removed at one of your follow up appointments You may change the dressing where the drain was placed in the abdomen daily and as needed with dry 4x4 gauze and medipore tape. Pending Studies at Discharge: Yes Studies:: surgical pathology Stand-Alone Forms: [facility], Opioid Pain Management, Smoking Cessation Medications and DC Order Prescriptions: New oxycodone-acetaminophen [Percocet] 5-325 mg tablet 1 - 2 tab PO Q4H PRN (Reason: pain, initial therapy, max 6 daily) Qty: 18 RF: 0 Discontinued amoxicillin-pot clavulanate [Augmentin] 875-125 mg tablet 1 tab PO BID 15 Days Qty: 30 RF: 0 Discharge Orders: Discharge Order (Routine); Ordered 12/02/20 Ordered By: Stephany Kaiser Admission Data Admit Date/Time: 11/24/20 12:30 Attending Provider: Cali Frank Admit Provider: Cali Frank Primary Care Provider: PCP,NO Other Providers: Andrea Adams Other Interventions: Discharge Summary Assessment (RN) Last Done: 12/02/20 11:02 Coding Level of Care Code D/C Day Management <30 mins Diagnoses Diverticulitis K57.92
--- NOTE | 2020-12-08 11:45 | Coding Query ---
CODING QUERY To promote full compliance with coding requirements relating to patient care, provider participation is requested in all cases of [employer] developer uncertainty. Please assist us with the question(s) below: Coding Question(s): The Hospitalist Consultation on 11/24/20 documents Morbid Obesity. Your help is needed to clarify the BMI as it is documented on the record at the top header in EMR as BMI 40.0 and on the Anesthesia Record as BMI 40, however, the scanned in H&P shows BMI 39.4 ad the EMR Height & Weight area shows BMI 39.9 as well as in the clinical panels for visit shows BMI 39.9. The BMI being correctly captured makes a difference in capturing the severity of illness on this record. Please specify below, in your clinical opinion, regarding the BMI. ( x) BMI 40.0 ( ) BMI 39.9 ( ) BMI 39.4 ( ) BMI other: Please Specify Physician's Response(s): Thank you Loyda Mariscal Principal Diagnosis: "that condition established after study, to be chiefly responsible for occasioning the admission of the patient to the hospital for care." Co-Existing Principal Diagnosis: "when two or more diagnoses equally meet the criteria for principal diagnosis as determined by the circumstances of admission, diagnostic work up, and/or therapy provided, and the Alphabetic Index, Tabular List, or another coding guideline does not provide sequencing direction, any one of the diagnoses may be sequenced first." "When the physician has documented what appears to be a current diagnosis in the body of the record, but has not included the diagnosis in the final diagnostic statement, the physician should be asked whether the diagnosis should be added." (Source [facility] 2 QTR90. p3-4) [facility]
== END 2020-12-02 14:48 | disposition home or self-care (01) | DRG 330 ==
LOC: ASU 05:54 → 3N 12:30